=== PATIENT | female | born 1950 | race Caucasian/White ===

== ENCOUNTER 2016-12-02 19:24 | Inpatient (IN) | payer MEDICARE ==
[~2016-12-02] VITALS: Ht 167.6 cm; Wt 43.1 kg
[~2016-12-02 19:24] MED LIST: INSU100I17 SQ; INSU100I27 SQ; LISI2.5T PO; POTASSIUM CHLO10 MEQ PO
[2016-12-02] MEDS ORDERED: ONDANSETRON PF 4 MG/2 ML VIAL. IV ONE (19:45)
[2016-12-02] MEDS ORDERED: IV NORMAL SALINE 500ML BAG 500 ML IV ONE (19:45)
[2016-12-02] MEDS ORDERED: fentaNYL PF VIAL 100 MCG/2 ML VIAL IV PRN (19:45)
[2016-12-02 19:53] LABS: BILIRUBIN,URINE NEGATIVE (NEG); GLUCOSE,URINE 500 mg/dL (NEG); NITRITE,URINE NEGATIVE (NEG); PROTEIN,URINE NEGATIVE (NEG-TRACE); UROBILINOGEN,URINE 0.2 mg/dL (0.2 mg/dL)
[2016-12-02 19:58] LABS: BACTERIA,URINE 0 /HPF (0-FEW); RBC,URINE 0 /HPF (0-2); SQUAMOUS EPITHELIAL CELL,UR OCC /LPF; WBC,URINE OCC /HPF (0-4)
[2016-12-02] MEDS ORDERED: PRAV10TA2 PO (20:13)
[2016-12-02] MEDS ORDERED: CARV3.12 PO (20:13)
[2016-12-02 20:24] LABS: BASO % 0 % (0-3); EOS % 2 % (0-3); HEMATOCRIT 38.3 % (36.0-47.0); HEMOGLOBIN 12.6 g/dL (12.0-15.5); LYMPH # 1.5 x10^3/uL (1.0-4.8); LYMPH % 25 % (24-48); MEAN CORPUSCULAR HEMOGLOBIN 31 pg (25-35); MEAN CORPUSCULAR HGB CONC 33 g/dL (31-37); MEAN CORPUSCULAR VOLUME 93 fL (79-100); MONO % 6 % (0-9); NEUT % 67 % (31-73); PLATELET COUNT 170 x10^3/uL (140-400); RED BLOOD COUNT 4.14 x10^6/uL (3.50-5.40); RED CELL DISTRIBUTION WIDTH 13.2 % (11.5-14.5)
[2016-12-02 20:46] LABS: CALCIUM 7.9 mg/dL (8.5-10.1); CREATININE 0.9 mg/dL (0.6-1.0); GFR 62.3
[2016-12-02 20:52] LABS: ALBUMIN 3.3 g/dL (3.4-5.0); TOTAL BILIRUBIN 0.2 mg/dL (0.2-1.0); TOTAL PROTEIN 6.5 g/dL (6.4-8.2)
[2016-12-02] MEDS ORDERED: MORPHINE SULFATE 2 MG/ML DISP.SYRIN. IV PRN (21:30)
[2016-12-02] MEDS: ONDANSETRON PF 4 MG/2 ML VIAL. IV PRN (21:41)
--- NOTE | 2016-12-02 22:09 | PHYS DOC ---
Past Medical History Past Medical History: Diabetes-Type I, High Cholesterol, Hypotension, Other Additional Past Medical Histor: BLE neuropathy Past Surgical History: Cholecystectomy, Other Additional Past Surgical Histo: L toe removal Alcohol Use: None Drug Use: None Adult General Chief Complaint Chief Complaint: NAUSEA/VOMITING/DIARRHA HPI HPI Patient is a 66 year old female who presents with abdominal pain. The patient states she has 2 day history of lower abdominal pain associated with numerous episodes of bilious vomiting, not tolerating oral intake. Also reports frequent loose stools. Denies fevers/chills, hematochezia/melena, dysuria/ hematuria. She denies previous history of similar symptoms. She actually presented initially to [facility], had CT performed there demonstrating enterocolitis, received IV cipro & flagyl, & they recommended transfer to [facility]. She refused transport because she didn't want to pay ambulance bill, & her family brought her to [place]. She states there was some concern that she could have "pinched off blood vessels in her intestines" requiring intervention by a vascular surgeon. She has history of DM, HTN, cholecystectomy. Review of Systems Review of Systems Constitutional: Denies fever or chills Eyes: Denies change in visual acuity HENT: Denies nasal congestion or sore throat Respiratory: Denies cough or shortness of breath Cardiovascular: Denies chest pain or edema GI: Reports abdominal pain, nausea, vomiting, & diarrhea : Denies dysuria or hematuria Musculoskeletal: Denies back pain or joint pain Integument: Denies rash or skin lesions Neurologic: Denies headache, focal weakness or sensory changes Current Medications Current Medications Current Medications Medications (Trade) Dose Ordered Sig/Sandeep Start Time Stop Time Status Last Admin Dose Admin Fentanyl Citrate (Fentanyl 2ml Vial) 50 mcg PRN Q15MIN PRN 12/02/16 19:45 12/03/16 19:44 12/02/16 21:41 50 MCG Ondansetron HCl (Zofran) 4 mg 1X ONCE 12/02/16 19:45 12/02/16 19:47 DC 12/02/16 20:19 4 MG Sodium Chloride 500 ml @ 0 mls/hr 1X ONCE 12/02/16 19:45 12/02/16 19:47 DC 12/02/16 19:45 1,000 MLS/HR Allergies Allergies Allergies Coded Allergies Type Severity Reaction Last Updated Verified codeine Allergy Severe Anaphylaxis 11/25/14 Yes Penicillins Allergy Unknown 11/25/14 Yes Physical Exam Physical Exam Constitutional: frail, appears ill, non-toxic appearance. HENT: Normocephalic, atraumatic, bilateral external ears normal, oropharynx dry , nose normal. Eyes: conjunctiva normal, no discharge. Neck: supple, no stridor. Cardiovascular: RRR, no murmurs, no edema. Lungs & Thorax: LCTAB, no wheezing, no respiratory distress. Abdomen: soft, no focal tenderness with palpation, no rebound/guarding, no masses or pulsatile masses, nondistended. Skin: Warm, dry, no erythema, no rash. Back: No CVA tenderness. Extremities: No tenderness, no edema. Neurologic: Alert and oriented X 3, no focal deficits noted. Psychologic: Affect normal, judgement normal, mood normal. Current Patient Data Vital Signs Vital Signs Date Time Temp Pulse Resp B/P (MAP) Pulse Ox O2 Delivery O2 Flow Rate FiO2 12/02/16 20:37 102 58 150/66 (94) 97 12/02/16 20:07 Room Air 12/02/16 19:45 98.3 98.3 Lab Values Laboratory Tests Test 12/02/16 19:32 12/02/16 19:51 12/02/16 20:19 Urine Collection Type Unknown Urine Color Yellow Urine Clarity Clear Urine pH 6.0 Urine Specific [place] 1.020 Urine Protein Negative mg/dL (NEG-TRACE) Urine Glucose (UA) 500 mg/dL (NEG) Urine Ketones (Stick) Trace mg/dL (NEG) Urine Blood Negative (NEG) Urine Nitrite Negative (NEG) Urine Bilirubin Negative (NEG) Urine Urobilinogen Dipstick 0.2 mg/dL (0.2 mg/dL) Urine Leukocyte Esterase Negative (NEG) Urine RBC 0 /HPF (0-2) Urine WBC Occ /HPF (0-4) Urine Squamous Epithelial Cells Occ /LPF Urine Bacteria 0 /HPF (0-FEW) Glucose (Fingerstick) 219 mg/dL (70-99) H White Blood Count 6.0 x10^3/uL (4.0-11.0) Red Blood Count 4.14 x10^6/uL (3.50-5.40) Hemoglobin 12.6 g/dL (12.0-15.5) Hematocrit 38.3 % (36.0-47.0) Mean Corpuscular Volume 93 fL (79-100) Mean Corpuscular Hemoglobin 31 pg (25-35) Mean Corpuscular Hemoglobin Concent 33 g/dL (31-37) Red Cell Distribution Width 13.2 % (11.5-14.5) Platelet Count 170 x10^3/uL (140-400) Neutrophils (%) (Auto) 67 % (31-73) Lymphocytes (%) (Auto) 25 % (24-48) Monocytes (%) (Auto) 6 % (0-9) Eosinophils (%) (Auto) 2 % (0-3) Basophils (%) (Auto) 0 % (0-3) Neutrophils # (Auto) 4.0 x10^3uL (1.8-7.7) Lymphocytes # (Auto) 1.5 x10^3/uL (1.0-4.8) Monocytes # (Auto) 0.4 x10^3/uL (0.0-1.1) Eosinophils # (Auto) 0.1 x10^3/uL (0.0-0.7) Basophils # (Auto) 0.0 x10^3/uL (0.0-0.2) Sodium Level 138 mmol/L (136-145) Potassium Level 4.0 mmol/L (3.5-5.1) Chloride Level 106 mmol/L (98-107) Carbon Dioxide Level 27 mmol/L (21-32) Anion Gap 5 (6-14) L Blood Urea Nitrogen 20 mg/dL (7-20) Creatinine 0.9 mg/dL (0.6-1.0) Estimated GFR (Cockcroft-Gault) 62.3 BUN/Creatinine Ratio 22 (6-20) H Glucose Level 234 mg/dL (70-99) H Lactic Acid Level 0.9 mmol/L (0.4-2.0) Calcium Level 7.9 mg/dL (8.5-10.1) L Total Bilirubin 0.2 mg/dL (0.2-1.0) Aspartate Amino Transferase (AST) 16 U/L (15-37) Alanine Aminotransferase (ALT) 20 U/L (14-59) Alkaline Phosphatase 105 U/L (46-116) Troponin I Quantitative < 0.017 ng/mL (0.000-0.055) Total Protein 6.5 g/dL (6.4-8.2) Albumin 3.3 g/dL (3.4-5.0) L Albumin/Globulin Ratio 1.0 (1.0-1.7) Lipase 79 U/L (73-393) Laboratory Tests 12/02/16 20:19 Laboratory Tests 12/02/16 20:19 EKG EKG Interpreted by me: Sinus tachycardia rate 104, no acute ST or T wave changes, normal intervals, no ectopy. [] Radiology/Procedures Radiology/Procedures From medical record sent from [facility]: CT of the abdomen and pelvis with contrast: Interpreted by Dr. Rhoades: Visualized lung bases are clear. Calcified granulomas in the liver and spleen. Right renal cyst. Liver, spleen, pancreas, adrenal glands, kidneys normal. Urinary bladder normal. Suggestion of diffuse mural thickening involving the entire colon, though this could be in part related to under distention. In addition, there is prominent enhancement and mural thickening involving several loops of small bowel in the left abdomen. Findings are consistent with nonspecific enterocolitis. There is no bowel obstruction. No definite evidence for acute appendicitis. Atherosclerotic calcifications are seen. No lymphadenopathy her ascites is seen. Degenerative changes are seen in the spine. [] Course & Med Decision Making Course & Med Decision Making Pertinent Labs and Imaging studies reviewed. (See chart for details) The patient presents with abdominal pain with CT performed at outside hospital showing enterocolitis, having already received IV antibiotics just prior to arrival. Gave IV fluids, zofran, pain medication. Labs as above. I reviewed CT report, no description of findings suggesting definite mesenteric ischemia or other vascular pathology. She did not feel well enough to go home & was agreeable with admission. Discussed with Dr. Lai who agrees to admit to inpatient status. GI consult to Dr. Copeland. The patient is admitted in stable condition. [] Dragon Disclaimer Dragon Disclaimer This electronic medical record was generated, in whole or in part, using a voice recognition dictation system. Departure Departure Impression: Primary Impression: Abdominal pain Additional Impressions: Nausea vomiting and diarrhea Hyperglycemia Disposition: ADMITTED INPATIENT Admitting Physician: Claudia Lai Condition: STABLE Referrals: ADRIANE WILLIAM MD (PCP) Problem Qualifiers NATE MOBLEY MD Dec 02, 2016 22:09
[2016-12-02 22:20] VITALS: BP 129/64
--- NOTE | 2016-12-02 22:37 | ACF ---
Admission Forms Criteria ABDOMINAL PAIN Clinical Indications for Admission to Inpatient Care (Place 'X' for any and all applicable criteria): Admission is indicated for ANY ONE of the following(1)(2)(3)(4)(5): [ ]I. Inpatient admission required rather than observation care (Also use Abdominal Pain: Observation Care, as appropriate) because of ANY ONE of the following: [ ]a) Severe pain requiring acute inpatient management [ ]b) Identification of etiology/finding that requires inpatient care (eg, aortic dissection, free air) [ ]c) Absent bowel sounds with complete ileus(6) [ ]d) Suspected toxic megacolon [ ]e) Severe electrolyte abnormalities requiring inpatient care [ ]f) High fever or infection requiring inpatient admission as indicated by ANY ONE of following(7)(8): [ ] i) Appropriate outpatient or observational care antimicrobial treatment unavailable, not effective, or not feasible [ ] ii) Documented bacteremia [ ] iii) Temperature > 104.9 degrees F (oral) [ ] iv) T >103.1 F (oral) or < 96.8 F(rectal) that does not respond to all emergency treatment measures [ ]g) Signs of intestinal obstruction [B] [ ]h) Hemodynamic instability [ ]i) IV fluid to replace significant ongoing losses (greater than 3 L/m2 per day) (12)(13) [ ]j) Percutaneous or open drainage (eg, abscess, biliary tract ) procedures [ ]k) Parenteral nutrition regimen that must be implemented on inpatient basis [ ]l) Other condition,treatment or monitoring requiring inpatient admission. [ ]II. Peritoneal signs present [ ]III. Surgery needed that cannot be performed on an ambulatory basis. [ ]IV. Evaluation requires patient to not eat or drink for extended period ( eg, more than 24 hours). [ ]V. Contraindications and/or Inappropriate clinical situations for Observational Care in patients with abdominal pain, when ANY ONE of the following is required: [ ]a) Thorough evaluation is required to prevent catastrophic events due to delays in diagnosing (e.g.Mesenteric ischemia) 1,3 [ ]b) Patient with severe pathology or with chronic symptoms unlikely to improve in the ED stay (3) [X]. General contraindications and/or Inappropriate clinical situations for Observational Care in patients with abdominal pain, when ANY ONE of the following is required: [X]a) Prediction of prolongation of LOS based on ANY ONE of the following may be considered as a contraindication for observational care 2, 3, 4, 5, 6, 7, 8, 9, 10, 11 [X]i) Age > 65 yrs. [ ]ii) Patient arriving by ambulance [ ]iii) Patient with high acuity [ ]iv) Patient requiring vital sign monitoring [ ]v) Patient on IV medication [ ]b) Systolic blood pressures 180mmHg 3,12 [ ]c) Patient with altered mental status including delirium and other alteration of consciousness, (3) [ ]d) Patient whose discharge disposition will be to a correction home or rehabilitation home should not be managed in Emergency Department Observation Unit. CMS rule requires 3 days hospital stay before such placement.3,13 [ ]e) Patient with failure to thrive due to broad array of etiologies 3,16,17 [ ]f) Inability to ambulate 3,14 Extended stay beyond goal length of stay may be needed for(2)(3): [ ]a) Persistent abdominal pain with suspected intra-abdominal process [ ]b) Diagnosed condition requiring continued stay (e.g., pancreatitis, complicated diverticulitis) [ ]c) Surgery (e.g., colectomy) The original [facility] content created by [employer] has been revised. The portions of the content which have been revised are identified through the use of italic text or in bold, and [facility] has neither reviewed nor approved the modified material.All other unmodified content is copyright [facility]. Please see references footnoted in the original [facility] edition 2016 Admission Criteria Met?: Yes CHRISTELLE QUAN Dec 02, 2016 22:37
[2016-12-02] MEDS: IV NORMAL SALINE 1000ML BAG 1,000 ML IV SCH (23:04)
[2016-12-02] MEDS ORDERED: INSU100I13 SQ (23:11)
[2016-12-03] VITALS (7 sets, daily range): BP systolic 80–108; BP diastolic 34–49
[2016-12-03 04:04] LABS: BASO % 0 % (0-3); EOS % 1 % (0-3); HEMATOCRIT 34.9 % (36.0-47.0); HEMOGLOBIN 11.6 g/dL (12.0-15.5); LYMPH # 2.1 x10^3/uL (1.0-4.8); LYMPH % 35 % (24-48); MEAN CORPUSCULAR HEMOGLOBIN 31 pg (25-35); MEAN CORPUSCULAR HGB CONC 33 g/dL (31-37); MEAN CORPUSCULAR VOLUME 93 fL (79-100); MONO % 6 % (0-9); NEUT % 58 % (31-73); PLATELET COUNT 156 x10^3/uL (140-400); RED BLOOD COUNT 3.74 x10^6/uL (3.50-5.40); RED CELL DISTRIBUTION WIDTH 13.2 % (11.5-14.5)
[2016-12-03 04:44] LABS: CALCIUM 7.8 mg/dL (8.5-10.1); CREATININE 0.8 mg/dL (0.6-1.0); GFR 71.3; POTASSIUM 3.7 mmol/L (3.5-5.1)
--- NOTE | 2016-12-03 06:32 | EKG ---
[facility] [address] [place] [id number] Test Date: 2016-12-02 Test Time: 19:50:37 Pat Name: MARY VELÁZQUEZ Department: Room: [facility] Gender: F Full Stack Python Developer: : 1950 Requested By: NATE MOBLEY Order Number: [id number] Reading MD: Marysol Serrano Measurements Intervals [place] Rate: 104 P: 64 [place]: 156 QRS: 90 QRSD: 90 T: 66 QT: 348 QTc: 464 Interpretive Statements SINUS TACHYCARDIA LEFT ATRIAL ABNORMALITY QRS(T) CONTOUR ABNORMALITY CANNOT RULE OUT ANTEROSEPTAL MYOCARDIAL DAMAGE Electronically Signed On 12-04-2016 14:12:15 CDT by Marysol Serrano
[2016-12-03] MEDS ORDERED: DOCUSATE SODIUM 100 MG CAPSULE. PO PRN (08:45)
[2016-12-03] MEDS ORDERED: ACETAMINOPHEN 325 MG TABLET. PO PRN (08:45)
[2016-12-03] MEDS ORDERED: ONDANSETRON PF 4 MG/2 ML VIAL. IV PRN (08:45)
[2016-12-03] MEDS ORDERED: traMADol 50 MG TABLET PO PRN (08:45)
[2016-12-03] MEDS ORDERED: hydrALAZINE 20 MG/ML VIAL. IVP PRN (08:45)
[2016-12-03] MEDS ORDERED: MORPHINE SULFATE 2 MG/ML DISP.SYRIN. IV PRN (08:45)
[2016-12-03] MEDS ORDERED: DEXTROSE 50% 25 GM / 50ML DISP.SYRIN. IV PRN (08:45)
[2016-12-03] MEDS: IV NORMAL SALINE 1000ML BAG 1,000 ML IV SCH ×2 (08:47→17:24)
[2016-12-03] MEDS: ONDANSETRON PF 4 MG/2 ML VIAL. IV PRN (08:58)
[2016-12-03] MEDS: CARVEDILOL 3.125 MG TABLET. PO SCH ×2 (09:00→17:00)
[2016-12-03] MEDS ORDERED: fentaNYL PF VIAL 100 MCG/2 ML VIAL IV PRN (09:00)
--- NOTE | 2016-12-03 09:34 | PDOC2 ---
GI CONSULT Reason For Consult: Abd pain, colitis HPI: HPI: 66 y/o female w/ type 1 diabetes, reports h/o dizziness and some GI symptoms ( diarrhea, n/v) when glucose is too high or too low. Recently has been running high, has felt dizzy, fatigued, and "too weak to walk." Stooling 2-3 times daily, loose or watery, non-bloody, not during the night. Last week noted a black stool but takes "a lot" of Pepto-Bismol. Had some lower abd discomfort yesterday, now resolved. Dizziness ("room spinning") w/ standing causes nausea , unclear how often vomiting, but mostly in the morning. Says all GI symptoms not out of the ordinary. Currently "starving," wants eggs, has been NPO. Occasional reflux, particularly after eating tomatoes, untreated. Difficulty gaining weight "for months" despite good appetite. EGD long ago, no significant findings recalls. H/o two colonoscopies w/ Dr. Kam, reportedly normal. Unclear if has seen neurology or had head imaging for dizziness in the past. Was seen at [place] [facility], she says for fatigue, CT showed diffuse mural thickening int he entire colon (?in part due to incomplete distention) w/ prominent enhancement and mural thickening of small bowel loops in left abdomen. Labs as below, C Diff ordered/uncollected. 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 FH: Family History: No pertinent hx (denies GI cancers) Social History: Smoke: Quit ALCOHOL: none Drugs: None ROS: GEN: Denies fevers, chills, sweats HEENT: Denies blurred vision, sore throat CV: Denies chest pain RESP: Denies shortness of air, cough GI: Per HPI : Denies hematuria, dysuria ENDO: +difficulty gaining weight NEURO: +dizziness MSK: +weakness, fatigue SKIN: Denies jaundice, pruritus Vitals: Vitals: Vital Signs Date Time Temp Pulse Resp B/P (MAP) Pulse Ox O2 Delivery O2 Flow Rate FiO2 12/03/16 07:00 97.7 93 19 103/49 (67) 97 Room Air 97.7 Labs: Labs: Laboratory Tests Test 12/02/16 19:32 12/02/16 19:51 12/02/16 20:19 12/03/16 04:00 Urine Collection Type Unknown Urine Color Yellow Urine Clarity Clear Urine pH 6.0 Urine Specific [place] 1.020 Urine Protein Negative mg/dL (NEG-TRACE) Urine Glucose (UA) 500 mg/dL (NEG) Urine Ketones (Stick) Trace mg/dL (NEG) Urine Blood Negative (NEG) Urine Nitrite Negative (NEG) Urine Bilirubin Negative (NEG) Urine Urobilinogen Dipstick 0.2 mg/dL (0.2 mg/dL) Urine Leukocyte Esterase Negative (NEG) Urine RBC 0 /HPF (0-2) Urine WBC Occ /HPF (0-4) Urine Squamous Epithelial Cells Occ /LPF Urine Bacteria 0 /HPF (0-FEW) Glucose (Fingerstick) 219 mg/dL (70-99) White Blood Count 6.0 x10^3/uL (4.0-11.0) 6.0 x10^3/uL (4.0-11.0) Red Blood Count 4.14 x10^6/uL (3.50-5.40) 3.74 x10^6/uL (3.50-5.40) Hemoglobin 12.6 g/dL (12.0-15.5) 11.6 g/dL (12.0-15.5) Hematocrit 38.3 % (36.0-47.0) 34.9 % (36.0-47.0) Mean Corpuscular Volume 93 fL (79-100) 93 fL (79-100) Mean Corpuscular Hemoglobin 31 pg (25-35) 31 pg (25-35) Mean Corpuscular Hemoglobin Concent 33 g/dL (31-37) 33 g/dL (31-37) Red Cell Distribution Width 13.2 % (11.5-14.5) 13.2 % (11.5-14.5) Platelet Count 170 x10^3/uL (140-400) 156 x10^3/uL (140-400) Neutrophils (%) (Auto) 67 % (31-73) 58 % (31-73) Lymphocytes (%) (Auto) 25 % (24-48) 35 % (24-48) Monocytes (%) (Auto) 6 % (0-9) 6 % (0-9) Eosinophils (%) (Auto) 2 % (0-3) 1 % (0-3) Basophils (%) (Auto) 0 % (0-3) 0 % (0-3) Neutrophils # (Auto) 4.0 x10^3uL (1.8-7.7) 3.5 x10^3uL (1.8-7.7) Lymphocytes # (Auto) 1.5 x10^3/uL (1.0-4.8) 2.1 x10^3/uL (1.0-4.8) Monocytes # (Auto) 0.4 x10^3/uL (0.0-1.1) 0.3 x10^3/uL (0.0-1.1) Eosinophils # (Auto) 0.1 x10^3/uL (0.0-0.7) 0.1 x10^3/uL (0.0-0.7) Basophils # (Auto) 0.0 x10^3/uL (0.0-0.2) 0.0 x10^3/uL (0.0-0.2) Sodium Level 138 mmol/L (136-145) 140 mmol/L (136-145) Potassium Level 4.0 mmol/L (3.5-5.1) 3.7 mmol/L (3.5-5.1) Chloride Level 106 mmol/L (98-107) 106 mmol/L (98-107) Carbon Dioxide Level 27 mmol/L (21-32) 22 mmol/L (21-32) Anion Gap 5 (6-14) 12 (6-14) Blood Urea Nitrogen 20 mg/dL (7-20) 14 mg/dL (7-20) Creatinine 0.9 mg/dL (0.6-1.0) 0.8 mg/dL (0.6-1.0) Estimated GFR (Cockcroft-Gault) 62.3 71.3 BUN/Creatinine Ratio 22 (6-20) Glucose Level 234 mg/dL (70-99) 232 mg/dL (70-99) Lactic Acid Level 0.9 mmol/L (0.4-2.0) Calcium Level 7.9 mg/dL (8.5-10.1) 7.8 mg/dL (8.5-10.1) Total Bilirubin 0.2 mg/dL (0.2-1.0) Aspartate Amino Transf (AST/SGOT) 16 U/L (15-37) Alanine Aminotransferase (ALT/SGPT) 20 U/L (14-59) Alkaline Phosphatase 105 U/L (46-116) Troponin I Quantitative < 0.017 ng/mL (0.000-0.055) Total Protein 6.5 g/dL (6.4-8.2) Albumin 3.3 g/dL (3.4-5.0) Albumin/Globulin Ratio 1.0 (1.0-1.7) Lipase 79 U/L (73-393) Test 12/03/16 07:52 Glucose (Fingerstick) 252 mg/dL (70-99) Allergies: Coded Allergies: codeine (Verified Allergy, Severe, Anaphylaxis, 11/25/14) Penicillins (Verified Allergy, Unknown, 11/25/14) Medications: Current Medications Medications (Trade) Dose Ordered Sig/Sandeep Route PRN Reason Start Time Stop Time Status Last Admin Dose Admin Sodium Chloride 500 ml @ 0 mls/hr 1X ONCE IV 12/02/16 19:45 12/02/16 19:47 DC 12/02/16 19:45 Ondansetron HCl (Zofran) 4 mg 1X ONCE IV 12/02/16 19:45 12/02/16 19:47 DC 12/02/16 20:19 Fentanyl Citrate (Fentanyl 2ml Vial) 50 mcg PRN Q15MIN PRN IV PAIN GREATER THAN 3/10 12/02/16 19:45 12/03/16 19:44 12/02/16 21:41 Ondansetron HCl (Zofran) 4 mg PRN Q8HRS PRN IV NAUSEA/VOMITING 12/02/16 21:30 12/03/16 21:29 12/03/16 08:58 Sodium Chloride 1,000 ml @ 100 mls/hr Q10H IV 12/02/16 21:24 12/03/16 21:23 12/03/16 08:47 Imaging: Imaging: Reviewed CT report from [facility]. PE: GEN: NAD, thin HEENT: Atraumatic, PERRL LUNGS: CTAB HEART: RRR ABD: NABS, S/ND/NT EXTREMITY: No edema SKIN: No rashes, no jaundice NEURO/PSYCH: A & O 3 A/P: A/P: DM, dizziness, fatigue Abnormal CT -diffuse mural thickening in the entire colon (?in part due to incomplete distention) w/ prominent enhancement and mural thickening of small bowel loops in left abdomen Low BMI, difficulty gaining weight Loose stools, vomiting -not unusual when glucose low or high GERD -occasional symptoms, untreated, EGD long ago CRC screen -two previous colonoscopies, reportedly normal -- GI symptoms don't seem new, unclear significance of CT findings. Try diet, note ADA ordered. Will add PPI, review w/ Dr. Copeland. MARY ZAVALA Dec 03, 2016 09:34
[2016-12-03] MEDS: PANTOPRAZOLE 40 MG TABLET.DR. PO SCH (10:21)
[2016-12-03] MEDS ORDERED: INSULIN ASPART 300 UNITS/3 ML INSULN.PEN SQ STA (11:11)
[2016-12-03] MEDS: INSULIN ASPART 300 UNITS/3 ML INSULN.PEN SQ SCH ×4 (11:30→17:00)
--- NOTE | 2016-12-03 11:43 | PDOC1 ---
History and Physical Date of Admission Date of Admission 12/02/16 Identification/Chief Complaint Chief Complaint N/V, abd pain Problems: Source Source: Chart review, Patient History of Present Illness History of Present Illness HPI Patient is a 66 year old female who presents with abdominal pain, N/V, diarrhea , dizzy x2-3ds. pt said she has this problem 2-3 times per year, actually she was here 2014 for same reason. PT Said usually has n/v, abd pain, when glucose is too high or too low, but she thinks recent her DM is well controlled. She mainly concerns about light headed , no vertigo. The vomiting is non bloody or bilious, abd pain located at epigastric area, moderate, no radiation, bm was loose/watery. denes fever, chills, cough, sob or chest pain. as per ERP, She actually presented initially to [facility], had CT performed there demonstrating enterocolitis, received IV cipro & flagyl, & they recommended transfer to [facility]. She refused transport because she didn't want to pay ambulance bill, & her family brought her to [place]. she dose have polydypsia. admits hba1c was high. Past Medical History Cardiovascular: HTN Endocrine: Diabetes Past Surgical History Past Surgical History: Cholecystectomy Family History Family History: Hypertension Social History Smoke: No ALCOHOL: none Drugs: None Current Problem List Problem List Problems Medical Problems: (1) Hyperglycemia Status: Acute (2) Nausea vomiting and diarrhea Status: Acute Current Medications Current Medications Current Medications Medications (Trade) Dose Ordered Sig/Sandeep Start Time Stop Time Status Last Admin Dose Admin Acetaminophen (Tylenol) 650 mg PRN Q6HRS PRN 12/03/16 08:45 Atorvastatin Calcium (Lipitor) 5 mg QHS 12/03/16 21:00 Carvedilol (Coreg) 3.125 mg BIDWMEALS 12/03/16 09:00 Dextrose (Dextrose 50%-Water Syringe) 12.5 gm PRN Q15MIN PRN 12/03/16 08:45 Docusate Sodium (Colace) 100 mg PRN DAILY PRN 12/03/16 08:45 Fentanyl Citrate (Fentanyl 2ml Vial) 25 mcg PRN Q2HR PRN 12/03/16 09:00 Hydralazine HCl (Apresoline) 10 mg PRN Q4HRS PRN 12/03/16 08:45 Insulin Aspart (NovoLOG) 18 units 1X STAT 12/03/16 11:11 12/03/16 11:17 DC 12/03/16 11:20 18 UNITS Insulin Detemir (Levemir) 18 units QHS 12/03/16 21:00 Morphine Sulfate 2 mg PRN Q2HR PRN 12/03/16 08:45 UNV Ondansetron HCl (Zofran) 4 mg PRN Q6HRS PRN 12/03/16 08:45 Pantoprazole Sodium (Protonix) 40 mg DAILYAC 12/03/16 10:00 12/03/16 10:21 40 MG Sodium Chloride 1,000 ml @ 100 mls/hr Q10H 12/02/16 21:24 12/03/16 21:23 12/03/16 08:47 100 MLS/HR Tramadol HCl (Ultram) 50 mg PRN Q6HRS PRN 12/03/16 08:45 Allergies Allergies Allergies Coded Allergies Type Severity Reaction Last Updated Verified codeine Allergy Severe Anaphylaxis 11/25/14 Yes Penicillins Allergy Unknown 11/25/14 Yes ROS Review of System CONSTITUTIONAL: No fever or chills EYES: No recent changes SKIN: No rash or itching CARDIOVASCULAR: No chest pain, syncope, palpitations, or edema RESPIRATORY: No SOB or cough GASTROINTESTINAL: No nausea, vomiting or abdominal pain NEUROLOGICAL: No headaches or weakness ENDOCRINE: No cold or heat intolerance GENITOURINARY: No urgency or frequency of urination MUSCULOSKELETAL: No back pain or joint pain LYMPHATICS: No enlarged lymph nodes PSYCHIATRIC: No anxiety or depression Physical Exam Physical Exam GEN.: No apparent distress. Alert and oriented. HEENT: Head is normocephalic, atraumatic NECK: Supple. LUNGS: Clear to auscultation. HEART: RRR, S1, S2 present. Peripheral pulses intact ABDOMEN: Soft, Positive bowel sounds. epigastric abd tenderness EXTREMITIES: Without any cyanosis. NEUROLOGIC: Normal speech, normal tone PSYCHIATRIC: Normal affect, normal mood. SKIN: No ulcerations Vitals Vitals Vital Signs Date Time Temp Pulse Resp B/P (MAP) Pulse Ox O2 Delivery O2 Flow Rate FiO2 12/03/16 11:00 98.1 104 19 96/34 (54) 97 Room Air 98.1 Labs Labs Laboratory Tests Test 12/02/16 19:32 12/02/16 19:51 12/02/16 20:19 12/03/16 04:00 Urine Collection Type Unknown Urine Color Yellow Urine Clarity Clear Urine pH 6.0 Urine Specific Mooers 1.020 Urine Protein Negative mg/dL (NEG-TRACE) Urine Glucose (UA) 500 mg/dL (NEG) Urine Ketones (Stick) Trace mg/dL (NEG) Urine Blood Negative (NEG) Urine Nitrite Negative (NEG) Urine Bilirubin Negative (NEG) Urine Urobilinogen Dipstick 0.2 mg/dL (0.2 mg/dL) Urine Leukocyte Esterase Negative (NEG) Urine RBC 0 /HPF (0-2) Urine WBC Occ /HPF (0-4) Urine Squamous Epithelial Cells Occ /LPF Urine Bacteria 0 /HPF (0-FEW) Glucose (Fingerstick) 219 mg/dL (70-99) White Blood Count 6.0 x10^3/uL (4.0-11.0) 6.0 x10^3/uL (4.0-11.0) Red Blood Count 4.14 x10^6/uL (3.50-5.40) 3.74 x10^6/uL (3.50-5.40) Hemoglobin 12.6 g/dL (12.0-15.5) 11.6 g/dL (12.0-15.5) Hematocrit 38.3 % (36.0-47.0) 34.9 % (36.0-47.0) Mean Corpuscular Volume 93 fL (79-100) 93 fL (79-100) Mean Corpuscular Hemoglobin 31 pg (25-35) 31 pg (25-35) Mean Corpuscular Hemoglobin Concent 33 g/dL (31-37) 33 g/dL (31-37) Red Cell Distribution Width 13.2 % (11.5-14.5) 13.2 % (11.5-14.5) Platelet Count 170 x10^3/uL (140-400) 156 x10^3/uL (140-400) Neutrophils (%) (Auto) 67 % (31-73) 58 % (31-73) Lymphocytes (%) (Auto) 25 % (24-48) 35 % (24-48) Monocytes (%) (Auto) 6 % (0-9) 6 % (0-9) Eosinophils (%) (Auto) 2 % (0-3) 1 % (0-3) Basophils (%) (Auto) 0 % (0-3) 0 % (0-3) Neutrophils # (Auto) 4.0 x10^3uL (1.8-7.7) 3.5 x10^3uL (1.8-7.7) Lymphocytes # (Auto) 1.5 x10^3/uL (1.0-4.8) 2.1 x10^3/uL (1.0-4.8) Monocytes # (Auto) 0.4 x10^3/uL (0.0-1.1) 0.3 x10^3/uL (0.0-1.1) Eosinophils # (Auto) 0.1 x10^3/uL (0.0-0.7) 0.1 x10^3/uL (0.0-0.7) Basophils # (Auto) 0.0 x10^3/uL (0.0-0.2) 0.0 x10^3/uL (0.0-0.2) Sodium Level 138 mmol/L (136-145) 140 mmol/L (136-145) Potassium Level 4.0 mmol/L (3.5-5.1) 3.7 mmol/L (3.5-5.1) Chloride Level 106 mmol/L (98-107) 106 mmol/L (98-107) Carbon Dioxide Level 27 mmol/L (21-32) 22 mmol/L (21-32) Anion Gap 5 (6-14) 12 (6-14) Blood Urea Nitrogen 20 mg/dL (7-20) 14 mg/dL (7-20) Creatinine 0.9 mg/dL (0.6-1.0) 0.8 mg/dL (0.6-1.0) Estimated GFR (Cockcroft-Gault) 62.3 71.3 BUN/Creatinine Ratio 22 (6-20) Glucose Level 234 mg/dL (70-99) 232 mg/dL (70-99) Lactic Acid Level 0.9 mmol/L (0.4-2.0) Calcium Level 7.9 mg/dL (8.5-10.1) 7.8 mg/dL (8.5-10.1) Total Bilirubin 0.2 mg/dL (0.2-1.0) Aspartate Amino Transf (AST/SGOT) 16 U/L (15-37) Alanine Aminotransferase (ALT/SGPT) 20 U/L (14-59) Alkaline Phosphatase 105 U/L (46-116) Troponin I Quantitative < 0.017 ng/mL (0.000-0.055) Total Protein 6.5 g/dL (6.4-8.2) Albumin 3.3 g/dL (3.4-5.0) Albumin/Globulin Ratio 1.0 (1.0-1.7) Lipase 79 U/L (73-393) Test 12/03/16 07:52 12/03/16 10:14 12/03/16 10:58 Glucose (Fingerstick) 252 mg/dL (70-99) 417 mg/dL (70-99) D-Dimer (Lucia) 0.61 ug/mlFEU (0.00-0.50) Laboratory Tests Test 12/02/16 19:32 12/02/16 19:51 12/02/16 20:19 12/03/16 04:00 Urine Collection Type Unknown Urine Color Yellow Urine Clarity Clear Urine pH 6.0 Urine Specific Mooers 1.020 Urine Protein Negative mg/dL (NEG-TRACE) Urine Glucose (UA) 500 mg/dL (NEG) Urine Ketones (Stick) Trace mg/dL (NEG) Urine Blood Negative (NEG) Urine Nitrite Negative (NEG) Urine Bilirubin Negative (NEG) Urine Urobilinogen Dipstick 0.2 mg/dL (0.2 mg/dL) Urine Leukocyte Esterase Negative (NEG) Urine RBC 0 /HPF (0-2) Urine WBC Occ /HPF (0-4) Urine Squamous Epithelial Cells Occ /LPF Urine Bacteria 0 /HPF (0-FEW) Glucose (Fingerstick) 219 mg/dL (70-99) White Blood Count 6.0 x10^3/uL (4.0-11.0) 6.0 x10^3/uL (4.0-11.0) Red Blood Count 4.14 x10^6/uL (3.50-5.40) 3.74 x10^6/uL (3.50-5.40) Hemoglobin 12.6 g/dL (12.0-15.5) 11.6 g/dL (12.0-15.5) Hematocrit 38.3 % (36.0-47.0) 34.9 % (36.0-47.0) Mean Corpuscular Volume 93 fL (79-100) 93 fL (79-100) Mean Corpuscular Hemoglobin 31 pg (25-35) 31 pg (25-35) Mean Corpuscular Hemoglobin Concent 33 g/dL (31-37) 33 g/dL (31-37) Red Cell Distribution Width 13.2 % (11.5-14.5) 13.2 % (11.5-14.5) Platelet Count 170 x10^3/uL (140-400) 156 x10^3/uL (140-400) Neutrophils (%) (Auto) 67 % (31-73) 58 % (31-73) Lymphocytes (%) (Auto) 25 % (24-48) 35 % (24-48) Monocytes (%) (Auto) 6 % (0-9) 6 % (0-9) Eosinophils (%) (Auto) 2 % (0-3) 1 % (0-3) Basophils (%) (Auto) 0 % (0-3) 0 % (0-3) Neutrophils # (Auto) 4.0 x10^3uL (1.8-7.7) 3.5 x10^3uL (1.8-7.7) Lymphocytes # (Auto) 1.5 x10^3/uL (1.0-4.8) 2.1 x10^3/uL (1.0-4.8) Monocytes # (Auto) 0.4 x10^3/uL (0.0-1.1) 0.3 x10^3/uL (0.0-1.1) Eosinophils # (Auto) 0.1 x10^3/uL (0.0-0.7) 0.1 x10^3/uL (0.0-0.7) Basophils # (Auto) 0.0 x10^3/uL (0.0-0.2) 0.0 x10^3/uL (0.0-0.2) Sodium Level 138 mmol/L (136-145) 140 mmol/L (136-145) Potassium Level 4.0 mmol/L (3.5-5.1) 3.7 mmol/L (3.5-5.1) Chloride Level 106 mmol/L (98-107) 106 mmol/L (98-107) Carbon Dioxide Level 27 mmol/L (21-32) 22 mmol/L (21-32) Anion Gap 5 (6-14) 12 (6-14) Blood Urea Nitrogen 20 mg/dL (7-20) 14 mg/dL (7-20) Creatinine 0.9 mg/dL (0.6-1.0) 0.8 mg/dL (0.6-1.0) Estimated GFR (Cockcroft-Gault) 62.3 71.3 BUN/Creatinine Ratio 22 (6-20) Glucose Level 234 mg/dL (70-99) 232 mg/dL (70-99) Lactic Acid Level 0.9 mmol/L (0.4-2.0) Calcium Level 7.9 mg/dL (8.5-10.1) 7.8 mg/dL (8.5-10.1) Total Bilirubin 0.2 mg/dL (0.2-1.0) Aspartate Amino Transf (AST/SGOT) 16 U/L (15-37) Alanine Aminotransferase (ALT/SGPT) 20 U/L (14-59) Alkaline Phosphatase 105 U/L (46-116) Troponin I Quantitative < 0.017 ng/mL (0.000-0.055) Total Protein 6.5 g/dL (6.4-8.2) Albumin 3.3 g/dL (3.4-5.0) Albumin/Globulin Ratio 1.0 (1.0-1.7) Lipase 79 U/L (73-393) Test 12/03/16 07:52 12/03/16 10:14 12/03/16 10:58 Glucose (Fingerstick) 252 mg/dL (70-99) 417 mg/dL (70-99) D-Dimer (Lucia) 0.61 ug/mlFEU (0.00-0.50) VTE Prophylaxis Ordered VTE Prophylaxis Devices: Yes VTE Pharmacological Prophylaxi: Yes Assessment/Plan Assessment/Plan abd pain, N/V, diarrhea, 2/2 gastroparesis vs. gastroenteritis lightheaded uncontrolled dm1 htn hld plan: fu with gi ada diet cont home meds, ssi check hba1c told her to take small amount of food each time ivf pain control gi, dvt ppx check orthostatic BP ADBEAYO RUIZ MD Dec 03, 2016 11:43
[2016-12-03] MEDS ORDERED: METOCLOPRAMIDE HCL 10 MG/2 ML VIAL. IV PRN (11:45)
[2016-12-03] MEDS ORDERED: IV NORMAL SALINE 1000ML BAG 1,000 ML IV ONE (12:00)
[2016-12-03] MEDS ORDERED: ENOXAPARIN 30 MG/0.3 ML SYRINGE. SQ SCH (16:00)
[2016-12-03] MEDS ORDERED: INSULIN REGULAR 100 UNIT/ML 10ML VIAL. IV ONE (16:15)
[2016-12-03] MEDS ORDERED: INSULIN ASPART 300 UNITS/3 ML INSULN.PEN SQ ONE ×2 (17:15→18:15)
[2016-12-03] MEDS ORDERED: INSULIN DETEMIR 300 UNITS/3 ML INSULN.PEN. SQ SCH (21:00)
[2016-12-03] MEDS ORDERED: ATORVASTATIN CALCIUM 10 MG TABLET. PO SCH (21:00)
[2016-12-04 03:03] VITALS: BP 115/55
[2016-12-04 07:00] VITALS: BP 121/62
[2016-12-04 07:02] LABS: BASO % 0 % (0-3); EOS % 0 % (0-3); HEMATOCRIT 38.4 % (36.0-47.0); HEMOGLOBIN 12.5 g/dL (12.0-15.5); LYMPH # 1.6 x10^3/uL (1.0-4.8); LYMPH % 19 % (24-48); MEAN CORPUSCULAR HEMOGLOBIN 31 pg (25-35); MEAN CORPUSCULAR HGB CONC 33 g/dL (31-37); MEAN CORPUSCULAR VOLUME 94 fL (79-100); MONO % 7 % (0-9); NEUT % 73 % (31-73); PLATELET COUNT 199 x10^3/uL (140-400); RED CELL DISTRIBUTION WIDTH 13.2 % (11.5-14.5); WHITE BLOOD COUNT 8.1 x10^3/uL (4.0-11.0)
[2016-12-04 07:17] LABS: CALCIUM 8.2 mg/dL (8.5-10.1); CREATININE 0.6 mg/dL (0.6-1.0); GFR 99.4; POTASSIUM 3.9 mmol/L (3.5-5.1)
[2016-12-04] MEDS: INSULIN ASPART 300 UNITS/3 ML INSULN.PEN SQ SCH ×3 (07:30→11:49)
[2016-12-04] MEDS: PANTOPRAZOLE 40 MG TABLET.DR. PO SCH (09:00)
[2016-12-04] MEDS: CARVEDILOL 3.125 MG TABLET. PO SCH (09:01)
[2016-12-04 11:00] VITALS: BP 112/62
[2016-12-04] MEDS ORDERED: INSULIN ASPART 300 UNITS/3 ML INSULN.PEN SQ SCH (11:30)
[2016-12-04] MEDS ORDERED: IV NORMAL SALINE 1000ML BAG 1,000 ML IV ONE (11:30)
--- NOTE | 2016-12-04 13:06 | PDOC3 ---
Discharge Summary [facility] Date of Admission: Jan 01, 2017 Discharge Date: Dec 04, 2016 Admitting Diagnosis abd pain, N/V, diarrhea, 2/2 gastroparesis vs. gastroenteritis lightheaded with orthastatic hypotension uncontrolled dm1 htn hld Problems: Final Diagnosis CONSULTS GI Brief Hospital Course Patient is a 66 year old female who presents with abdominal pain, N/V, diarrhea , dizzy x2-3ds. pt said she has this problem 2-3 times per year, actually she was here 2014 for same reason. PT Said usually has n/v, abd pain, when glucose is too high or too low, but she thinks recent her DM is well controlled. She mainly concerns about light headed , no vertigo. The vomiting is non bloody or bilious, abd pain located at epigastric area, moderate, no radiation, bm was loose/watery. denes fever, chills, cough, sob or chest pain. as per ERP, She actually presented initially to [facility], had CT performed there demonstrating enterocolitis, received IV cipro & flagyl, & they recommended transfer to [facility]. She refused transport because she didn't want to pay ambulance bill, & her family brought her to [place]. she dose have polydypsia. admits hba1c was high. pt's glucose was high yesterday, low this morning, better with po food. She was found have orthostatic hypotension, will dc coreg, ivf. pt has no N/V, abd pain , or diarrhea today, tolerate food well. hba1c pending. dc home, dc time 35min. GEN.: No apparent distress. Alert and oriented. HEENT: Head is normocephalic, atraumatic NECK: Supple. LUNGS: Clear to auscultation. HEART: RRR, S1, S2 present. Peripheral pulses intact ABDOMEN: Soft, Positive bowel sounds. epigastric abd tenderness EXTREMITIES: Without any cyanosis. NEUROLOGIC: Normal speech, normal tone PSYCHIATRIC: Normal affect, normal mood. SKIN: No ulcerations Patient History: FHx: Parkinson's disease Family history: Cardiovascular disease (situation) Problems: Disposition home CONDITION AT DISCHARGE: Improved Diet ada Scheduled Insulin Aspart (Novolog Flexpen), 6 UNITS SQ TIDAC Insulin Glargine,Hum.rec.anlog (Lantus Solostar), 18 UNIT SQ QHS, (Reported) Pravastatin Sodium (Pravastatin Sodium), 1 TAB PO QHS, (Reported) Discontinued Medications Carvedilol (Coreg), 1 TAB PO BID, (Reported) Follow Up pcp in 2 weeks ADEBAYO RUIZ MD Dec 04, 2016 13:06
[2016-12-04] MEDS ORDERED: INSULIN DETEMIR 300 UNITS/3 ML INSULN.PEN. SQ SCH (21:00)
== END 2016-12-04 13:05 | disposition home or self-care (01) | DRG 74 ==
LOC: ER 19:24 → 5 NORTH 20:54
PROVIDERS: ADMIT Internal Medicine; ATTEND Internal Medicine
DX: E10.43 Type 1 diabetes mellitus with diabetic autonomic (poly)neuropathy (principal); Z68.1 Body mass index [BMI] 19.9 or less, adult; K52.9 Noninfective gastroenteritis and colitis, unspecified; I95.1 Orthostatic hypotension; E10.65 Type 1 diabetes mellitus with hyperglycemia; E78.00 Pure hypercholesterolemia, unspecified; E78.5 Hyperlipidemia, unspecified; I10 Essential (primary) hypertension; E10.40 Type 1 diabetes mellitus with diabetic neuropathy, unspecified; K31.84 Gastroparesis; K21.9 Gastro-esophageal reflux disease without esophagitis; Z82.0 Family history of epilepsy and other diseases of the nervous system; Z82.49 Family history of ischemic heart disease and other diseases of the circulatory system; Z90.49 Acquired absence of other specified parts of digestive tract; Z88.0 Allergy status to penicillin; Z88.6 Allergy status to analgesic agent; I25.2 Old myocardial infarction; Z98.49 Cataract extraction status, unspecified eye; Z89.422 Acquired absence of other left toe(s); Z86.19 Personal history of other infectious and parasitic diseases; Z87.891 Personal history of nicotine dependence; Z79.899 Other long term (current) drug therapy
CPT/HCPCS: 36415; 80048; 80053; 81001; 82962; 83036; 83605; 83690; 84484; 85027; 85379; 87040; 93005; 96361; 96374; 96375; J1650; J1815; J2405; J3010; J7030; J7040; 99285-25

== ENCOUNTER 2020-12-05 18:16 | Inpatient (IN) | payer MEDICARE ==
[~2020-12-05] VITALS: Ht 167.6 cm; Wt 59.7 kg
[2020-12-05] VITALS (8 sets, daily range): BP systolic 105–125; BP diastolic 54–66
--- NOTE | 2020-12-05 06:30 | NUR ---
Pt. admitted to ICU room 112 from industrial laborer, arrived to unit on ICU bed. Catheterization site assessed with industrial laborer RN, dressing dry and intact, site soft, distal pulses intact with right foot pale but consistent with her general skin appearance, sat probe placed on right toe for continuous pulse monitoring. Family at bedside shortly after admission assisting with admission questions as pt. is only able to offer one word responses. Family states this is not her baseline but that "she gets like this when her blood sugar is high". Dr. Dillon at bedside and discussed pt. orders received. Pt. continued with only one word responses throughout shift. AM labs noted with Anion gap at 22, glucose at ~340 and ketones noted in urine. Dr. Dillon paged with these findings and returned call, orders received.
[~2020-12-05 18:16] MED LIST changes: +CARV3.12 PO; +CARV3.1210 PO; +GABA-585 PO; +INSU100I13 SQ; +INSU200I SQ; +METO10TA81 PO; +METO25TA2 PO; +POTA10TA12 PO; -POTASSIUM CHLO10 MEQ PO; +PRAV10TA2 PO; +PRAV40TA PO
[2020-12-05] MEDS ORDERED: LIDOCAINE 1% Multi-Dose 20 ML VIAL. ONE (18:24)
[2020-12-05] MEDS ORDERED: fentaNYL PF VIAL 100 MCG/2 ML VIAL ONE (18:30)
[2020-12-05] MEDS ORDERED: MIDAZOLAM HCL/PF 2 MG/2 ML VIAL. ONE (18:30)
[2020-12-05] MEDS ORDERED: TIROFIBAN 5MG -0.9% NS 100 ML IV ONE (18:39)
[2020-12-05] MEDS ORDERED: HEPARIN for IV BOLUS 10,000 UNIT/10 ML VIAL. ONE (18:39)
[2020-12-05] MEDS ORDERED: ATROPINE 1 MG/10 ML DISP.SYRINGE. ONE (18:42)
[2020-12-05] MEDS ORDERED: NITROGLYCERIN 200 MCG/2 ML SYRINGE FOR CATH/VASC LAB. ONE (18:55)
[2020-12-05] MEDS ORDERED: MIDAZOLAM HCL/PF 2 MG/2 ML VIAL. IV ONE (19:00)
[2020-12-05] MEDS ORDERED: NITROGLYCERIN 200 MCG/2 ML SYRINGE FOR CATH/VASC LAB. IART ONE (19:00)
[2020-12-05] MEDS ORDERED: LIDOCAINE 1% Multi-Dose 20 ML VIAL. INJ ONE (19:00)
[2020-12-05] MEDS ORDERED: HEPARIN for IV BOLUS 10,000 UNIT/10 ML VIAL. IV ONE (19:00)
[2020-12-05] MEDS ORDERED: IODIXANOL 320 MG/ML 100 ML VIAL. IART ONE (19:00)
[2020-12-05] MEDS ORDERED: fentaNYL PF VIAL 100 MCG/2 ML VIAL IV ONE (19:00)
[2020-12-05] MEDS ORDERED: TIROFIBAN 5MG -0.9% NS 100 ML IV PRN (19:05)
[2020-12-05] MEDS ORDERED: CONTRAST GIVEN. MC PRN (19:15)
[2020-12-05] MEDS ORDERED: NITROGLYCERIN SUBLINGUAL 0.4 MG BOTTLE OF 25. SL PRN (19:30)
[2020-12-05] MEDS ORDERED: ACETAMINOPHEN 325 MG TABLET. PO PRN (19:30)
[2020-12-05] MEDS ORDERED: LIDOCAINE 2% 100 MG/5 ML SYRINGE. IV PRN (19:30)
[2020-12-05] MEDS ORDERED: ATROPINE 0.5 MG/5 ML DISP.SYRINGE. IV PRN (19:30)
[2020-12-05] MEDS ORDERED: 0.9 % SODIUM CHLORIDE 10 ML DISP.SYRIN. IV PRN (19:30)
[2020-12-05] MEDS ORDERED: fentaNYL PF VIAL 100 MCG/2 ML VIAL IV PRN (19:30)
[2020-12-05] MEDS ORDERED: AMIODARONE 150 MG in IV DEXTROSE 5% 100ML 100 ML IV PRN (19:30)
[2020-12-05] MEDS ORDERED: CLOPIDOGREL BISULFATE 75 MG TABLET PO ONE (19:30)
--- NOTE | 2020-12-05 20:53 | CONS ---
DATE OF CONSULTATION: 12/05/2020 REASON FOR CONSULTATION: Acute inferior ST elevation OH. HISTORY OF PRESENT ILLNESS: The patient is a very pleasant 70-year-old woman who presented to [facility] in the setting of mental status changes. She was living with her boyfriend and at the eye doctor's office where she began to have some mentation changes and was felt to be related to her labile diabetes, and after having her blood sugar corrected due to having persistent acute mental status changes, she was brought to the ER at [facility] in [place]. Initial EKG demonstrated ST elevation in the inferolateral segments with posterior reciprocal depressions. The patient was unable to describe any symptoms due to her mental status changes. An acute head CT was unremarkable, and given the EKG changes, she was brought emergently to the quality lab technician at [facility] for a coronary angiogram. PAST MEDICAL HISTORY: 1. Significant labile diabetes for the last 40 years with neuropathy involving the gastroparesis. 2. Prior history of stress-induced cardiomyopathy. 3. Prior history of coronary artery disease, status post PCI to the LAD, most recently according to the family about 3 years ago. SOCIAL HISTORY: The patient is retired. No alcohol, tobacco or illicit drug use. ALLERGIES: CODEINE AND PENICILLIN. REVIEW OF SYSTEMS: Unable to be obtained due to patient's mentation changes. PHYSICAL EXAMINATION: VITAL SIGNS: Afebrile, heart rate 85, blood pressure 110/56, pulse ox 99% on room air. GENERAL: She is not alert or oriented. She is awake and moving her extremities and her eyes and head. CARDIAC: Unremarkable. LUNGS: Decreased breath sounds bilaterally. ABDOMEN: Soft, nontender, nondistended. EXTREMITIES: No clubbing, cyanosis or edema. NEUROLOGIC: No focal deficits except for mentation is noted. DIAGNOSTIC STUDIES: 1. EKG reveals [address] elevations. 2. Troponin is elevated to 8. Otherwise, no significant abnormalities are noted. IMPRESSION: 1. Acute inferior ST elevation myocardial infarction. 2. Three-vessel coronary artery disease with patent stents in the left anterior descending and left circumflex. 3. Labile diabetes. 4. Labile blood pressure. 5. Severe diabetic neuropathy. 6. Gastroparesis. RECOMMENDATIONS: 1. Continue aspirin 81 mg daily. 2. We will ensure that the patient is able to swallow and start Plavix 75 mg daily, currently she has been given a tirofiban drip. 3. Obtain echocardiogram. 4. Monitor blood pressure closely and blood sugars and treatment of diabetes per primary service. Thank you for this consultation. CHRIS DR: Rehana TID: [id number]
[2020-12-05] MEDS: ATORVASTATIN CALCIUM 20 MG TABLET PO SCH (20:55)
[2020-12-05] MEDS ORDERED: DEXTROSE 50% 25 GM / 50ML DISP.SYRIN. IV PRN (21:00)
[2020-12-05] MEDS ORDERED: CIPR250T30 PO (21:45)
[2020-12-05] MEDS ORDERED: DULO30CA2 PO (21:47)
[2020-12-05] MEDS ORDERED: ATOR40TA59 PO (21:47)
[2020-12-05] MEDS ORDERED: GABA300C18 PO (21:47)
[2020-12-05] MEDS ORDERED: ASPI325T8 PO (21:47)
[2020-12-05] MEDS ORDERED: FLUD0.1T PO (21:47)
--- NOTE | 2020-12-05 21:51 | PDOC1 ---
History and Physical Date of Service: DOS: DATE: 12/05/20 TIME: 21:42 Chief Complaint: Chief Complain: Altered mental status. History of Present Illness: HPI: History obtained from ED physician and discussion with Dr. Keenan Patient is a 70-year-old female with past medical history of diabetes mellitus for the past 40 years, neuropathy, stress-induced cardiomyopathy, CAD with stents in the LAD who was transferred from [facility] due to altered mental status. Apparently patient lives with her boyfriend and was at the doctor's office when she was beginning to have some confusion and the boyfriend felt that this might be related to her uncontrolled diabetes. Patient was brought to the ER at [facility] in [place]. Initial EKG did demonstrate ST elevation in the inferior lateral segments with posterior reciprocal depressions. She was transferred from [facility] and taken immediately to the [facility] at [facility] for left heart cath. Upon my exam, I was unable to get further history as the patient was only mumbling to my questions and only making eye contact. Discussion with the nurse who spoke with family also stated that patient has been dealing with multiple UTIs in the past. Apparently, patient has recently been taken off an antibiotic. Past Medical/Surgical History: PMH/PSH: Past medical history: Diabetes mellitus type 1?, Neuropathy, gastroparesis, CAD with stents about 3 years ago Allergies: Allergies: Coded Allergies: Penicillins (Verified Allergy, Severe, Anaphylaxis, 08/25/17) codeine (Verified Allergy, Mild, Itching, 08/25/17) Family History: Family History: Reviewed with no relevant findings Social History: Social History: Denies alcohol drug or tobacco abuse Current Medications: Current Medications Current Medications Lidocaine HCl (Lidocaine 1% 20ml Vial) 20 ml STK-MED ONCE .ROUTE ; Start 12/05/20 at 18:24; Stop 12/05/20 at 18:24; Status DC Fentanyl Citrate (Fentanyl 2ml Vial) 100 mcg STK-MED ONCE .ROUTE ; Start 12/05/20 at 18:30; Stop 12/05/20 at 18:30; Status DC Midazolam HCl (Versed) 2 mg STK-MED ONCE .ROUTE ; Start 12/05/20 at 18:30; Stop 12/05/20 at 18:31; Status DC Heparin Sodium (Porcine) (Heparin Sodium) 10,000 unit STK-MED ONCE .ROUTE ; Start 12/05/20 at 18:39; Stop 12/05/20 at 18:40; Status DC Tirofiban/Sodium Chloride 100 ml @ As Directed STK-MED ONCE IV ; Start 12/05/20 at 18:39; Stop 12/05/20 at 18:40; Status DC Atropine Sulfate (ATROPINE 1mg SYRINGE) 1 mg STK-MED ONCE .ROUTE ; Start 12/05/20 at 18:42; Stop 12/05/20 at 18:43; Status DC Nitroglycerin (Nitroglycerin) 200 mcg STK-MED ONCE .ROUTE ; Start 12/05/20 at 18:55; Stop 12/05/20 at 18:55; Status DC Nitroglycerin (Nitroglycerin) 200 mcg 1X ONCE IART Last administered on 12/05/20at 19:29; Start 12/05/20 at 19:00; Stop 12/05/20 at 19:03; Status DC Heparin Sodium/ Sodium Chloride (HEPARIN for ARTERIAL LINE FLUSH) 1,000 unit 1X ONCE IART Last administered on 12/05/20at 19:28; Start 12/05/20 at 19:00; Stop 12/05/20 at 19:03; Status DC Heparin Sodium/ Sodium Chloride (HEPARIN for ARTERIAL LINE FLUSH) 1,000 unit 1X ONCE IART Last administered on 12/05/20at 19:28; Start 12/05/20 at 19:00; Stop 12/05/20 at 19:03; Status DC Midazolam HCl (Versed) 1 mg 1X ONCE IV Last administered on 12/05/20at 19:29; Start 12/05/20 at 19:00; Stop 12/05/20 at 19:03; Status DC Fentanyl Citrate (Fentanyl 2ml Vial) 25 mcg 1X ONCE IV Last administered on 12/05/20at 19:29; Start 12/05/20 at 19:00; Stop 12/05/20 at 19:03; Status DC Iodixanol (Visipaque 320) 100 ml 1X ONCE IART Last administered on 12/05/20at 19:28; Start 12/05/20 at 19:00; Stop 12/05/20 at 19:03; Status DC Heparin Sodium (Porcine) (Heparin Sodium) 4,000 unit 1X ONCE IV Last administered on 12/05/20at 19:30; Start 12/05/20 at 19:00; Stop 12/05/20 at 19:03; Status DC Lidocaine HCl (Lidocaine 1% 20ml Vial) 10 ml 1X ONCE INJ Last administered on 12/05/20at 19:29; Start 12/05/20 at 19:00; Stop 12/05/20 at 19:03; Status DC Info (CONTRAST GIVEN -- Rx MONITORING) 1 each PRN DAILY PRN MC SEE COMMENTS; Start 12/05/20 at 19:15; Stop 12/07/20 at 19:14 Tirofiban/Sodium Chloride 100 ml @ 0 mls/hr CONT PRN IV PER PROTOCOL Last administered on 12/05/20at 19:01; Start 12/05/20 at 19:05 Sodium Chloride (Normal Saline Flush) 3 ml QSHIFT PRN IV AFTER MEDS AND BLOOD DRAWS; Start 12/05/20 at 19:30 Aspirin (Ecotrin) 81 mg DAILYWBKFT PO ; Start 12/06/20 at 08:00 Clopidogrel Bisulfate (Plavix) 75 mg DAILYWBKFT PO ; Start 12/06/20 at 08:00 Atorvastatin Calcium (Lipitor) 40 mg QHS PO ; Start 12/05/20 at 21:00 Acetaminophen (Tylenol) 650 mg PRN Q6HRS PRN PO MILD PAIN / TEMP > 100.3'F; Start 12/05/20 at 19:30 Fentanyl Citrate (Fentanyl 2ml Vial) 50 mcg PRN Q1HR PRN IV MODERATE OR SEVERE PAIN; Start 12/05/20 at 19:30 Nitroglycerin (Nitrostat) 0.4 mg PRN Q5MIN PRN SL CHEST PAIN; Start 12/05/20 at 19:30 Amiodarone HCl 150 mg/Dextrose 103 ml @ 600 mls/hr 1X PRN PRN IV FOR VENTRICULAR TACHYCARDIA; Start 12/05/20 at 19:30 Lidocaine HCl (Lidocaine HCl 2% Abboject) 100 mg 1X PRN PRN IV FOR VENTRICULAR TACHYCARDIA; Start 12/05/20 at 19:30 Atropine Sulfate (ATROPINE 0.5mg SYRINGE) 0.5 mg PRN 1X PRN IV BRADYCARDIA; Start 12/05/20 at 19:30 Clopidogrel Bisulfate (Plavix) 600 mg 1X ONCE PO ; Start 12/05/20 at 19:30; Stop 12/05/20 at 19:39; Status DC Insulin Human Lispro (HumaLOG) 0-7 UNITS TIDWMEALS SQ ; Start 12/06/20 at 08:00 Dextrose (Dextrose 50%-Water Syringe) 12.5 gm PRN Q15MIN PRN IV SEE COMMENTS; Start 12/05/20 at 21:00 Insulin Glargine (Lantus Syringe) 10 unit QHS SQ ; Start 12/05/20 at 21:00 Active Scripts Active Reported Carvedilol 3.125 Mg Tablet 1 Tab PO BID Gabapentin 100 Mg Capsule 100 Mg PO HS Reglan (Metoclopramide Hcl) 10 Mg Tablet 10 Mg PO QIDACHS PRN Pravachol (Pravastatin Sodium) 40 Mg Tablet 1 Tab PO HS Toprol Xl (Metoprolol Succinate) 25 Mg Tab.er.24h 0.5 Tab PO DAILY Lantus Solostar (Insulin Glargine,Hum.rec.anlog) 100 Unit/1 Ml Insuln.pen 18 Unit SQ QHS ROS: Review of Systems Review of System Unable to obtain due to mental status Physical Exam: Vital Signs: Vital Signs Date Time Temp Pulse Resp B/P (MAP) Pulse Ox O2 Delivery O2 Flow Rate FiO2 12/05/20 19:36 84 15 99 Nasal Cannula 2.0 Physcial Exam: GEN: No apparent distress. Alert and oriented HEENT: Normal cephalic, atraumatic, external auditory canals are patent EYES: Extraocular muscles are intact, pupil are equally round and reactive to light and accommodation MUSCULOSKELETAL: Well developed , well nourished, good range of motion ENDOCRINE: No thyromegaly was palpated LYMPHATICS: No cervical chain or axillary nodes were noted HEMATOPOIETIC: No bruising NECK: Supple, no JVD, no thyromegaly was noted LUNGS: Clear to auscultation in all lung tejeda without rhonchi or wheezing HEART: RRR, S!, S2 present. Peripheral pulses intact, no obvious murmurs noted ABDOMEN: Soft, nontender. Positive bowel sounds, no organomegaly, normal bowel sounds EXTREMITIES: Without clubbing, cyanosis, or edema. Pedal pulses intact. Negative Homans sign NEUROLOGIC: Normal speech and tone. A&O x 3, moves all extremities, no obvious focal deficits PSYCHIATRIC: Normal affect, normal mood. Stable SKIN: No ulcerations or rashes, good skin turgor, no jaundice VASCULAR: Good capillary refill, neurovascular bundle appears to be intact Labs: Labs: Pending Images: Images Pending Assessment/Plan Assessment/Plan Acute metabolic encephalopathy, possible infectious Acute STEMI Acute delirium or confusional state due to infectious versus toxic versus metabolic disturbance No obvious centrally acting medications currently. No obvious signs of infection on physical exam. No fevers or nuchal rigidity. CT head is negative for acute etiology. No history or signs of trauma Pending UA and urine cultures Will start empiric IV antibiotics if positive UA Pending TSH, B12, folate levels Pending urine toxic drug screen Consider dementia/ICU delirium prevention protocol, Provide adequate lighting (open curtains during the day, turn the lights off at night), Provide frequent personal contact with family, friends, and staff or TV Encourage early and frequent mobilization Rehab screening ordered Nutrition consult if there is malnutrition or concern for vitamin deficiencies Speech evaluation Continue aspirin, consider Plavix once patient passes speech eval Continue nitroglycerin as needed for pain Continue beta-humberto if blood pressures allow Continue high intensity statins IV morphine as needed Maintain O2 sats between 88 to 95% Repeat EKG in the a.m. Continue telemetry monitoring Monitor for electrolyte abnormalities Avoid NSAIDs Heparin for DVT prophylaxis Protonix GI prophylaxis N.p.o. until passes speech evaluation Full code Discussed with RN and SW Dispo continue ICU care A total of 50 minutes of critical care time was spent in reviewing chart, labs, and images. Discussed with RN and SW. Justifications for Admission Other Justification AIXA LUNA MD Dec 05, 2020 21:51
[2020-12-05] MEDS ORDERED: MIRT-7 PO (21:52)
[2020-12-05] MEDS ORDERED: MIDO10TA PO (21:52)
[2020-12-05] MEDS ORDERED: POTA10TA6 PO (21:52)
[2020-12-05] MEDS ORDERED: PANT40TA77 PO (21:52)
[2020-12-05] MEDS ORDERED: ONDA-84 PO (21:52)
[2020-12-05] MEDS ORDERED: METO5TAB55 PO (21:52)
[2020-12-05] MEDS ORDERED: METO25TA4 PO (21:52)
[2020-12-05] MEDS ORDERED: INSU100I13 SQ (21:52)
[2020-12-05 22:05] LABS: BILIRUBIN,URINE SMALL (NEG); CLARITY,URINE CLEAR; COLOR,URINE YELLOW; NITRITE,URINE NEGATIVE (NEG); PROTEIN,URINE NEGATIVE (NEG-TRACE); UROBILINOGEN,URINE 0.2 mg/dL (0.2 mg/dL)
[2020-12-05 22:14] LABS: BACTERIA,URINE 0 /HPF (0-FEW); HYALINE CASTS, URINE FEW /HPF; WBC,URINE 0 /HPF (0-4)
[2020-12-05 22:28] LABS: BARBITURATES NEG (NEG); BENZODIAZEPINES POS (NEG); CANNABINOIDS NEG (NEG); COCAINE NEG (NEG); METHADONE NEG (NEG); OPIATES NEG (NEG); PHENCYCLIDINE NEG (NEG)
[2020-12-05 22:30] LABS: AMPHETAMINE/METHAMPHETAMINE NEG (NEG)
[2020-12-05] MEDS: INSULIN GLARGINE SYRINGE. SQ SCH (22:40)
[2020-12-06] VITALS (24 sets, daily range): BP systolic 94–131; BP diastolic 47–71
[2020-12-06 04:38] LABS: ALBUMIN 2.8 g/dL (3.4-5.0); CALCIUM 8.5 mg/dL (8.5-10.1); CREATININE 1.1 mg/dL (0.6-1.0); DIRECT BILIRUBIN 0.1 mg/dL (0.0-0.2); GFR 48.8; POTASSIUM 3.9 mmol/L (3.5-5.1); TOTAL BILIRUBIN 0.6 mg/dL (0.2-1.0); TOTAL PROTEIN 6.5 g/dL (6.4-8.2)
[2020-12-06 04:47] LABS: CHOLESTEROL/HDL RATIO 4.1
[2020-12-06] MEDS ORDERED: POTASSIUM CHLORIDE 10MEQ 100 ML IV PRN ×2 (07:00)
[2020-12-06] MEDS ORDERED: INSULIN REGULAR VIAL 100 UNIT in IV NORMAL SALINE 100ML 100 ML IV PRN (07:00)
[2020-12-06 07:50] LABS: MAGNESIUM 1.9 mg/dL (1.8-2.4); PHOSPHORUS 3.5 mg/dL (2.6-4.7)
[2020-12-06] MEDS: INSULIN LISPRO 300 UNITS/3 ML VIAL. SQ SCH ×3 (08:00→17:00)
[2020-12-06] MEDS ORDERED: ASPIRIN ENTERIC COATED 81 MG TABLET.DR. PO SCH (08:00)
[2020-12-06] MEDS: CLOPIDOGREL BISULFATE 75 MG TABLET PO SCH (08:00)
[2020-12-06] MEDS: POTASSIUM CHLORIDE 10MEQ 100 ML IV PRN ×4 (08:22→11:07)
[2020-12-06 08:57] LABS: BASE EXCESS ABG -13 mmol/L (-3-3); HCO3 ABG 11 mmol/L (21-28); PO2 ABG 86 mmHg (65-108); SAT O2 ABG 96 % (92-99)
[2020-12-06 09:14] LABS: FIO2 ABG ROOM AIR; PCO2 ABG 19 mmHg (35-46)
[2020-12-06] MEDS ORDERED: SODIUM BICARBONATE VIAL 50 MEQ in IV NORMAL SALINE 1000ML BAG 1,000 ML IV SCH (11:00)
[2020-12-06] MEDS: ACETAMINOPHEN 325 MG SUPP.RECT. PR PRN (11:06)
--- NOTE | 2020-12-06 12:08 | PDOC ---
[employer] PROGRESS NOTE Date of Service DOS: DATE: 12/06/20 TIME: 12:07 Chief Complaint Chief Complaint Acute myocardial infarction with status post cardiac cath and 2 stents placed to the RCA DKA Prior coronary disease with prior stents Diabetes History of cardiomyopathy Polypharmacy Hyperlipidemia CHF Hypertension Neuropathy GERD History of Present Illness History of Present Illness 12/06/2020 Patient seen and examined in the ICU She is obtunded Family is present (son and [id number]) Discussed the case at length with the family Chart reviewed Discussed with rotary engraver explains that she is a frail diabetic She has slipped into DKA today Her pupils are still large but she apparently got atropine drops at the cinder crusher operator yesterday Vitals/I&O Vitals/I&O: Vital Signs Date Time Temp Pulse Resp B/P (MAP) Pulse Ox O2 Delivery O2 Flow Rate FiO2 12/06/20 11:00 129 27 103/48 (66) 100 Room Air 12/06/20 08:00 102.2 102.2 12/05/20 19:36 2.0 I & O 12/05/20 12/05/20 12/06/20 15:00 23:00 07:00 Output Total 165 ml 805 ml Balance -165 ml -805 ml Physical Exam General: Other (Obtunded not speaking) Heart: Regular rate Lungs: Clear, Other Abdomen: Normal bowel sounds Extremities: No clubbing Skin: No rashes Labs Labs: Laboratory Tests Test 12/05/20 20:50 12/05/20 21:40 12/06/20 04:00 12/06/20 07:28 Glucose (Fingerstick) 238 mg/dL (70-99) Urine Collection Type Unknown Urine Color Yellow Urine Clarity Clear Urine pH 5.0 (<5.0-8.0) Urine Specific [place] >=1.030 (1.000-1.030) Urine Protein Negative mg/dL (NEG-TRACE) Urine Glucose (UA) 500 mg/dL (NEG) Urine Ketones (Stick) 40 mg/dL (NEG) Urine Blood Moderate (NEG) Urine Nitrite Negative (NEG) Urine Bilirubin Small (NEG) Urine Urobilinogen Dipstick 0.2 mg/dL (0.2 mg/dL) Urine Leukocyte Esterase Negative (NEG) Urine RBC 3-5 /HPF (0-2) Urine WBC 0 /HPF (0-4) Urine Squamous Epithelial Cells Few /LPF Urine Bacteria 0 /HPF (0-FEW) Urine Hyaline Casts Few /HPF Urine Mucus Slight /LPF Urine Opiates Screen Neg (NEG) Urine Methadone Screen Neg (NEG) Urine Barbiturates Neg (NEG) Urine Phencyclidine Screen Neg (NEG) Urine Amphetamine/Methamphetamine Neg (NEG) Urine Benzodiazepines Screen Pos (NEG) Urine Cocaine Screen Neg (NEG) Urine Cannabinoids Screen Neg (NEG) Urine Ethyl Alcohol Neg (NEG) Sodium Level 140 mmol/L (136-145) Potassium Level 3.9 mmol/L (3.5-5.1) Chloride Level 101 mmol/L (98-107) Carbon Dioxide Level 17 mmol/L (21-32) Anion Gap 22 (6-14) Blood Urea Nitrogen 17 mg/dL (7-20) Creatinine 1.1 mg/dL (0.6-1.0) Estimated GFR (Cockcroft-Gault) 48.8 Glucose Level 343 mg/dL (70-99) Calcium Level 8.5 mg/dL (8.5-10.1) Phosphorus Level 3.5 mg/dL (2.6-4.7) Magnesium Level 1.9 mg/dL (1.8-2.4) Total Bilirubin 0.6 mg/dL (0.2-1.0) Direct Bilirubin 0.1 mg/dL (0.0-0.2) Aspartate Amino Transf (AST/SGOT) 29 U/L (15-37) Alanine Aminotransferase (ALT/SGPT) 18 U/L (14-59) Alkaline Phosphatase 128 U/L (46-116) Troponin I Quantitative 12.988 ng/mL (0.000-0.055) Total Protein 6.5 g/dL (6.4-8.2) Albumin 2.8 g/dL (3.4-5.0) Triglycerides Level 136 mg/dL (0-150) Cholesterol Level 155 mg/dL (0-200) LDL Cholesterol, Calculated 90 mg/dL (0-100) VLDL Cholesterol, Calculated 27 mg/dL (0-40) Non-HDL Cholesterol Calculated 117 mg/dL (0-129) HDL Cholesterol 38 mg/dL (40-60) Cholesterol/HDL Ratio 4.1 Thyroid Stimulating Hormone (TSH) 0.913 uIU/mL (0.358-3.74) O2 Saturation 96 % (92-99) Arterial Blood pH 7.36 (7.35-7.45) Arterial Blood pCO2 at Patient Temp 19 mmHg (35-46) Arterial Blood pO2 at Patient Temp 86 mmHg (65-108) Arterial Blood HCO3 11 mmol/L (21-28) Arterial Blood Base Excess -13 mmol/L (-3-3) FiO2 Room air Test 12/06/20 09:27 12/06/20 10:23 12/06/20 11:20 Glucose (Fingerstick) 395 mg/dL (70-99) 329 mg/dL (70-99) 278 mg/dL (70-99) Assessment and Plan Assessmemt and Plan Acute myocardial infarction with status post cardiac cath and 2 stents placed to the RCA DKA Prior coronary disease with prior stents Diabetes History of cardiomyopathy Polypharmacy Hyperlipidemia CHF Hypertension Neuropathy GERD Plan ICU monitoring Wound care Trend labs Serial enzymes still EKGs Home meds DVT prophylaxis Full code I am adding in a low-dose of prednisone as she is on Florinef at home (family states she takes Florinef for low blood pressure?) Prognosis guarded but improving Appreciate cardiology intervention CC time 31-minute Comment Review of Relevant I have reviewed the following items boyd (where applicable) has been applied. Medications: Current Medications Medications (Trade) Dose Ordered Sig/Sandeep Route PRN Reason Start Time Stop Time Status Last Admin Dose Admin Nitroglycerin (Nitroglycerin) 200 mcg 1X ONCE IART 12/05/20 19:00 12/05/20 19:03 DC 12/05/20 19:29 Heparin Sodium/ Sodium Chloride (HEPARIN for ARTERIAL LINE FLUSH) 1,000 unit 1X ONCE IART 12/05/20 19:00 12/05/20 19:03 DC 12/05/20 19:28 Heparin Sodium/ Sodium Chloride (HEPARIN for ARTERIAL LINE FLUSH) 1,000 unit 1X ONCE IART 12/05/20 19:00 12/05/20 19:03 DC 12/05/20 19:28 Midazolam HCl (Versed) 1 mg 1X ONCE IV 12/05/20 19:00 12/05/20 19:03 DC 12/05/20 19:29 Fentanyl Citrate (Fentanyl 2ml Vial) 25 mcg 1X ONCE IV 12/05/20 19:00 12/05/20 19:03 DC 12/05/20 19:29 Iodixanol (Visipaque 320) 100 ml 1X ONCE IART 12/05/20 19:00 12/05/20 19:03 DC 12/05/20 19:28 Heparin Sodium (Porcine) (Heparin Sodium) 4,000 unit 1X ONCE IV 12/05/20 19:00 12/05/20 19:03 DC 12/05/20 19:30 Lidocaine HCl (Lidocaine 1% 20ml Vial) 10 ml 1X ONCE INJ 12/05/20 19:00 12/05/20 19:03 DC 12/05/20 19:29 Tirofiban/Sodium Chloride 100 ml @ 0 mls/hr CONT PRN IV PER PROTOCOL 12/05/20 19:05 12/05/20 19:01 Insulin Glargine (Lantus Syringe) 10 unit QHS SQ 12/05/20 21:00 12/05/20 22:40 Potassium Chloride/Water 100 ml @ 100 mls/hr PRN Q1HR PRN IV SEE COMMENTS 12/06/20 07:00 12/06/20 11:07 Insulin Human Regular 100 unit/ Sodium Chloride 101 ml @ 0 mls/hr CONT PRN IV SEE I/O RECORD 12/06/20 07:00 12/06/20 08:34 Levofloxacin/ Dextrose 50 ml @ 50 mls/hr Q24H IV 12/06/20 10:15 12/06/20 11:06 Acetaminophen (Tylenol Supp) 325 mg PRN Q6HRS PRN OK MILD PAIN / TEMP > 100.3'F 12/06/20 10:45 12/06/20 11:06 Sodium Bicarbonate 50 meq/Sodium Chloride 1,050 ml @ 100 mls/hr [id number] IV 12/06/20 11:00 12/06/20 21:29 12/06/20 11:42 Justifications for Admission Other Justification СЕРГЕЙ CASTELAN III DO Dec 06, 2020 12:08
[2020-12-06] MEDS ORDERED: METOCLOPRAMIDE 10 MG TABLET. PO PRN (12:15)
[2020-12-06] MEDS ORDERED: NON FORMULARY ITEM (Ondansetron Hcl 8 MG) PO PRN (12:15)
[2020-12-06] MEDS ORDERED: GABAPENTIN 300 MG CAPSULE. PO PRN (12:15)
[2020-12-06] MEDS: FLUDROCORTISONE 0.1 MG TABLET PO SCH (13:00)
[2020-12-06] MEDS: MIDODRINE 5 MG TABLET PO SCH ×2 (13:00→17:54)
[2020-12-06] MEDS: DULoxetine HCL 30 MG CAPSULE.DR PO SCH (13:00)
[2020-12-06 13:45] LABS: CALCIUM 8.7 mg/dL (8.5-10.1); CREATININE 1.4 mg/dL (0.6-1.0); MAGNESIUM 1.8 mg/dL (1.8-2.4); PHOSPHORUS 2.2 mg/dL (2.6-4.7); POTASSIUM 4.3 mmol/L (3.5-5.1)
[2020-12-06] MEDS ORDERED: ONDANSETRON PF 4 MG/2 ML VIAL. IVP PRN (14:00)
--- NOTE | 2020-12-06 14:31 | NUR ---
1300 Assumed care of patient with assist of Rosa MCGOVERN. Resting eyes closed,nonverbal with questions. Lethargic but is reported as "normal for patient" w episode ketoacidosis.
[2020-12-06] MEDS ORDERED: CARVEDILOL 3.125 MG TABLET. PO SCH (17:00)
--- NOTE | 2020-12-06 17:09 | PDOC ---
CARDIOLOGY PROGRESS NOTE SUBJECTIVE: Patient remains somnolent, non-responsive. Being treated for DKA OBJECTIVE: Vital Signs/I&O: Vital Signs Date Time Temp Pulse Resp B/P (MAP) Pulse Ox O2 Delivery O2 Flow Rate FiO2 12/06/20 16:00 114 27 100/51 (67) 98 Room Air 12/06/20 15:00 99.0 99.0 12/05/20 19:36 2.0 I & O 12/05/20 12/05/20 12/06/20 15:00 23:00 07:00 Output Total 165 ml 805 ml Balance -165 ml -805 ml Objective: GEN.: Not alert or oriented. HEENT: Head is normocephalic, atraumatic NECK: Supple. LUNGS: Clear to auscultation. HEART: RRR, S1, S2 present. Peripheral pulses intact ABDOMEN: Soft, nontender. Positive bowel sounds. EXTREMITIES: Without any cyanosis. NEUROLOGIC: Nonresponsive, no focal signs. SKIN: No ulcerations CURRENT MEDICATIONS: No meds given. DIAGNOSTIC TESTING: Tele reviewed. Labs reviewed. ASSESSMENT: 1. Acute inferior STEMI 2. Anion gap metabolic acidosis with adequate resp compensation 3. Possible DKA 4. Acute mental status changes. PLAN: 1. Plan for NG tube placement, give asa, plavix 2. Hold all b-humberto meds. 3. Give statin 4. Monitor for improvement in AG. Unclear etiology Supportive care. Poor prognosis. Justicifation of Admission Dx: Justifications for Admission: Justification of Admission Dx: N/A SUNNY BRISENO MD Dec 06, 2020 17:09
[2020-12-06] MEDS ORDERED: CLOPIDOGREL BISULFATE 75 MG TABLET PO ONE (18:00)
--- NOTE | 2020-12-06 19:47 | CARD ---
MR#: [id number] Date of Study: 12/05/2020 Ordering Physician: SUNNY KEENAN, Referring Physician: SUNNY KEENAN, Tech: RT Hector(R) APPROVED REPORT Technologist: RT Hector(R) Nurse: Eula Glaser RN Procedure(s) performed: FLUORO TIME 8.4 DOSE 46.8GYCM2 CONTRAST 151ML VIS. MODERATE SEDATION 58 MINS LHC, Coronary angiography PCI of the RCA PTCA RPL [facility] Clinical Frailty Scale [facility] Clinical Frailty Scale: Severely Frail Heart Failure Heart Failure: Yes If Yes, Newly Diagnosed: Yes If Yes, HF Type: Diastolic Systolic If Yes, NYHA Class: Class III PROCEDURE NARRATIVE Clinical information: 70-year-old woman presented to an outside hospital in the setting of mental status changes. Initial EKG revealed severe ST segment elevation and she was brought to the catheterization laboratory at [facility] for further evaluation and treatment. Verbal informed consent was obtained for the patient's family as the patient was nonresponsive. Procedure details: Under 1% lidocaine local anesthesia a 6 [place] sheath was placed in the right common femoral artery. Next, diagnostic angiography was performed with a 6 [place] JL4 and JR4 catheters. Left ventricular end-diastolic pressure was obtained with a pigtail catheter and left ventriculography was performed a nd a pullback pressure gradient was obtained. Findings: Aorta 90/60 LVEDP 18 mmHg Left ventriculogram: EF 45%, basal and diaphragmatic wall akinesis. Coronary angiography: Left main is a large-caliber vessel with normal angiographic appearance LAD is a moderate to large caliber vessel with patent proximal to mid overlapping stents. Left circumflex is a small caliber nondominant vessel with a patent proximal stent with a 50% distal stent edge stenosis and a subtotal occlusion of the small caliber AV groove circumflex. OM1 is a small caliber vessel with an ostial 50% stenosis. RCA is a large caliber dominant vessel with a mid to distal subtotal occlusion. Interventional technique: Heparin was used for anticoagulation. Tirofiban was also administered. Through a 6 [place] JR4 guide catheter a Prowater wire was placed in the distal RPDA. Balloon angioplasty was then performed with a 2.5 x 15 mm balloon in the distal RCA at 12 [place]ton. A second wire was then placed in the RPL and a r epeat balloon angioplasty was performed with a 2 mm balloon at nominal pressures. The distal RCA les ion was then stented with a 3.0 x 18 mm drug-eluting stent. The proximal RCA lesion was then also st ented with a 3.5 x 30 mm drug-eluting stent. Final angiography demonstrated excellent stent expansio n with CLAY-3 flow no evidence of wire or guide related complications. At case completion the right groin sheath was removed and hemostasis was achieved with a Angio-Seal d evice. CLAY Flow CLAY Flow (Pre-Intervention): CLAY-0 CLAY Flow (Post-Intervention): CLAY-3 CLAY Flow CLAY Flow (Pre-Intervention): CLAY-2 CLAY Flow (Post-Intervention): CLAY-3 Conclusion 1[address] Acute inferior ST elevation FL 2. Elevated left ventricular filling pressure, LVEDP 18 mmHg 3. Mild LV systolic dysfunction, EF 40 to 45% 4. Three-vessel coronary artery disease with patent stents in the LAD and circumflex with culprit le trudi involving the RCA 5. Successful PCI of the proximal and distal RCA and PTCA of the mid RPL with implantation of a 3.5 x 30 and 3.0 x 18 mm drug-eluting stents in the RCA Recommendations 1. Aspirin 80 mg daily 2. Plavix 75 mg daily 3. Cardiac rehabilitation referral 4. Continue aggressive medical therapy for labile diabetes Signed by : Sunny Keenan, Electronically Approved : 12/06/2020 19:47:02
[2020-12-06] MEDS: ASPIRIN CHEWABLE 81 MG TABLET. PO SCH (19:49)
[2020-12-06] MEDS ORDERED: NON FORMULARY ITEM (Insulin Glargine,Hum.rec.anlog (Lantus Solostar) 18 UNIT) SQ SCH (21:00)
[2020-12-06] MEDS ORDERED: PRAVASTATIN SODIUM PO SCH (21:00)
[2020-12-06] MEDS ORDERED: CIPROFLOXACIN HCL 250 MG TABLET. PO SCH (21:00)
[2020-12-06] MEDS ORDERED: NON FORMULARY ITEM (Insulin Glargine,Hum.rec.anlog (Lantus Solostar) 10 UNIT) SQ SCH (21:00)
[2020-12-06 21:02] LABS: CALCIUM 8.5 mg/dL (8.5-10.1); CREATININE 1.2 mg/dL (0.6-1.0); GFR 44.2; POTASSIUM 4.3 mmol/L (3.5-5.1)
[2020-12-06 21:08] LABS: MAGNESIUM 1.9 mg/dL (1.8-2.4)
--- NOTE | 2020-12-06 21:26 | RAD ---
Supine abdomen. HISTORY: NG verification Supine view the abdomen shows an NG tube extending into the stomach. There are clips from a cholecyst ectomy. There is little bowel gas. IMPRESSION: 1. NG tube in the stomach. Electronically signed by: Cristian Beth MD (12/06/2020 9:23 PM) [facility]
[2020-12-06] MEDS: GABAPENTIN 100 MG CAPSULE. PO SCH (21:36)
[2020-12-06] MEDS: ATORVASTATIN CALCIUM 20 MG TABLET PO SCH (21:36)
[2020-12-06] MEDS: INSULIN GLARGINE SYRINGE. SQ SCH (22:43)
[2020-12-07] VITALS (34 sets, daily range): BP systolic 55–133; BP diastolic 30–68
--- NOTE | 2020-12-07 00:05 | RAD ---
AP chest. HISTORY: Desaturation AP view was taken of the chest. Patient has developed mild interstitial infiltrates or edema in the l eft lung. There are more prominent interstitial infiltrates or edema in the right lung with worsening compared to the CT from December 02. IMPRESSION: 1. Development of interstitial infiltrates or edema, worse on the right compared to the left. Electronically signed by: Cristian Beth MD (12/07/2020 12:02 AM) [facility]
[2020-12-07 01:01] LABS: CALCIUM 8.4 mg/dL (8.5-10.1); CREATININE 1.3 mg/dL (0.6-1.0); GFR 40.3; MAGNESIUM 1.9 mg/dL (1.8-2.4); PHOSPHORUS 3.5 mg/dL (2.6-4.7); POTASSIUM 3.9 mmol/L (3.5-5.1)
[2020-12-07 03:23] LABS: BASE EXCESS ABG -6 mmol/L (-3-3); FIO2 ABG 100; HCO3 ABG 19 mmol/L (21-28); PCO2 ABG 37 mmHg (35-46); PO2 ABG 230 mmHg (65-108); SAT O2 ABG 99 % (92-99)
--- NOTE | 2020-12-07 06:45 | NUR ---
Phoned pt's son Cristian to update on pt. condition re: respiratory distress. Son states that pt would want to be intubated if necessary. Paged Dr. Dick, returned call, updated on pt. condition including events of the evening, lab values, and currently with O2 saturation of 85% on 100% FiO2 on BiPAP, orders received including for anesthesia to intubate. Anesthesia paged and returned call, will come to unit to intubate.
[2020-12-07] MEDS ORDERED: PROPOFOL 100 ML IV ONE (06:55)
[2020-12-07] MEDS ORDERED: fentaNYL PF VIAL 100 MCG/2 ML VIAL IV PRN ×2 (07:00)
[2020-12-07] MEDS ORDERED: PROPOFOL 100 ML IV PRN (07:00)
[2020-12-07] MEDS ORDERED: MORPHINE SULFATE 4 MG/ML INJ. IV PRN (07:00)
[2020-12-07] MEDS ORDERED: MORPHINE SULFATE 2 MG/ML INJ. IV PRN (07:00)
[2020-12-07] MEDS ORDERED: PANTOPRAZOLE 40 MG TABLET.DR. PO SCH (07:30)
[2020-12-07 07:32] LABS: CALCIUM 8.9 mg/dL (8.5-10.1); CREATININE 1.2 mg/dL (0.6-1.0); GFR 44.2; POTASSIUM 4.4 mmol/L (3.5-5.1)
[2020-12-07] MEDS: DULoxetine HCL 30 MG CAPSULE.DR PO SCH (07:45)
--- NOTE | 2020-12-07 08:02 | PDOC ---
Provider Note Date of Service: DATE: 12/07/20 TIME: 07:57 Provider Note Anesthesia note: called for intubation for patient in respiratory failure s/p STEMI. #7.5 OET with 3.5 MAC after 70mg propofol and 100mg sux. Positive color change on EtCO2 indicator BSBE tube secured at 22cm by respiratory therapy. Chest Xray orderd. VSS Justifications for Admission Other Justification JONG DAVIS CRNA Dec 07, 2020 08:02
[2020-12-07] MEDS: MIDAZOLAM 100mg/100ml NS BAG 100 ML IV PRN (08:03)
[2020-12-07] MEDS: ASPIRIN CHEWABLE 81 MG TABLET. PO SCH (08:03)
[2020-12-07] MEDS: MIDODRINE 5 MG TABLET PO SCH ×3 (08:04→17:40)
[2020-12-07] MEDS: MIRTAZAPINE 15 MG TABLET PO SCH (08:04)
[2020-12-07] MEDS: FLUDROCORTISONE 0.1 MG TABLET PO SCH (08:04)
[2020-12-07] MEDS: CLOPIDOGREL BISULFATE 75 MG TABLET PO SCH (08:04)
[2020-12-07] MEDS: predniSONE 5 MG TABLET PO SCH (08:04)
[2020-12-07] MEDS: INSULIN LISPRO 300 UNITS/3 ML VIAL. SQ SCH ×4 (08:06→20:00)
--- NOTE | 2020-12-07 08:06 | RAD ---
EXAMINATION: XR CHEST 1V CLINICAL HISTORY: Status post intubation TECHNIQUE: XR CHEST 1V COMPARISON: 12/06/2020 FINDINGS/ IMPRESSION: Interval intubation with endotracheal tube terminating 1.6 cm above the betty, consider retracting s lightly for more optimal positioning. Enteric tube remains in the stomach. Improved aeration of the right lower lung zone with increasing patchy and confluent opacities in the right mid to upper lung zone. Small right pleural effusion. Remainder of the study otherwise unchange d. Electronically signed by: Eleuterio Cary DO (12/07/2020 8:04 AM) [facility]
[2020-12-07] MEDS: NOREPINEPHRINE VIAL 8 MG in IV DEXTROSE 5% 250 ML IV PRN (08:37)
[2020-12-07] MEDS ORDERED: METOPROLOL SUCC 24HR ER 25 MG TAB.ER.24H. PO SCH (09:00)
[2020-12-07] MEDS ORDERED: METOCLOPRAMIDE 5 MG TABLET. PO SCH (09:00)
[2020-12-07] MEDS ORDERED: POTASSIUM CHLORIDE 10 MEQ TABLET.ER. PO SCH (09:00)
[2020-12-07] MEDS ORDERED: METOPROLOL TART IMMED RELEASE 25 MG TABLET. PO SCH (09:00)
[2020-12-07] MEDS ORDERED: ATORVASTATIN CALCIUM 40 MG TABLET. PO SCH (09:00)
[2020-12-07 09:04] LABS: BASE EXCESS ABG -16 mmol/L (-3-3); HCO3 ABG 12 mmol/L (21-28); PCO2 ABG 36 mmHg (35-46); PO2 ABG 261 mmHg (65-108); SAT O2 ABG 99 % (92-99)
[2020-12-07 09:26] LABS: FIO2 ABG 100% VENT
--- NOTE | 2020-12-07 09:57 | PDOC ---
Provider Note Date of Service: DATE: 12/07/20 TIME: 09:51 Provider Note Anesthesiology Called to place a central line in a critically ill patient requiring IV access. Consent obtained from son, R/B/O discussed. RIJ TLC placed in usual sterile manner under US guidance. All 3 ports easily aspirated and flushed. Sterile dressing applied. Pt. tolerated well. VSS. CXR pending to confirm placement. Glenn Kim MD Justifications for Admission Other Justification LAURA KIM MD Dec 07, 2020 09:57
--- NOTE | 2020-12-07 09:59 | RAD ---
EXAMINATION: XR CHEST 1V CLINICAL HISTORY: Central line placement TECHNIQUE: XR CHEST 1V COMPARISON: 12/07/2020 7:48 AM FINDINGS/ IMPRESSION: Interval placement of right internal jugular central venous catheter terminating near the cavoatrial junction. Endotracheal and enteric tubes remain in similar positions. No pneumothorax. Remainder of t he study otherwise unchanged. Electronically signed by: Eleuterio Cary DO (12/07/2020 9:57 AM) SHANTE
[2020-12-07 10:13] LABS: BASO % 0 % (0-3); EOS % 0 % (0-3); HEMATOCRIT 33.9 % (36.0-47.0); HEMOGLOBIN 10.4 g/dL (12.0-15.5); LYMPH # 0.6 x10^3/uL (1.0-4.8); LYMPH % 4 % (24-48); MEAN CORPUSCULAR HEMOGLOBIN 29 pg (25-35); MEAN CORPUSCULAR HGB CONC 31 g/dL (31-37); MEAN CORPUSCULAR VOLUME 95 fL (79-100); MONO # 0.9 x10^3/uL (0.0-1.1); MONO % 7 % (0-9); NEUT # 11.9 x10^3/uL (1.8-7.7); NEUT % 89 % (31-73); PLATELET COUNT 354 x10^3/uL (140-400); RED BLOOD COUNT 3.58 x10^6/uL (3.50-5.40); RED CELL DISTRIBUTION WIDTH 16.4 % (11.5-14.5); WHITE BLOOD COUNT 13.4 x10^3/uL (4.0-11.0)
--- NOTE | 2020-12-07 11:11 | PDOC ---
CARDIOLOGY PROGRESS NOTE SUBJECTIVE: She has been intubated for resp failure. CXR suggestive of infiltrate, cannot rule out fluid overload. OBJECTIVE: Vital Signs/I&O: Currently in pressors. BP 80/40, VBG - Sat 70% Objective: Sedated, intubated, non-responsive tachypneic RRR soft abd No edema. Diminished pedal pulses. CURRENT MEDICATIONS: Current Medications Medications (Trade) Dose Ordered Sig/Sandeep Route PRN Reason Start Time Stop Time Status Last Admin Dose Admin Fludrocortisone Acetate (Florinef) 0.1 mg QAM PO 12/06/20 13:00 12/07/20 08:04 Gabapentin (Neurontin) 100 mg HS PO 12/06/20 21:00 12/06/20 21:36 Mirtazapine (Remeron) 15 mg DAILY PO 12/07/20 09:00 12/07/20 08:04 Midodrine (Proamatine) 10 mg [id number] PO 12/06/20 13:00 12/07/20 08:04 Prednisone (Prednisone) 5 mg DAILY PO 12/07/20 09:00 12/07/20 08:04 Ondansetron HCl (Zofran) 4 mg PRN Q6HRS PRN IVP NAUSEA/VOMITING 12/06/20 14:00 12/06/20 13:53 Clopidogrel Bisulfate (Plavix) 600 mg 1X ONCE PO 12/06/20 18:00 12/06/20 18:40 DC 12/06/20 19:49 Aspirin (Aspirin Chewable) 81 mg DAILYWBKFT PO 12/06/20 19:00 12/07/20 11:02 DC 12/07/20 08:03 Fentanyl Citrate 30 ml @ 0 mls/hr CONT PRN IV SEE PROTOCOL 12/07/20 07:00 12/07/20 08:05 Midazolam HCl 100 ml @ 0 mls/hr CONT PRN IV SEE PROTOCOL 12/07/20 07:00 12/07/20 08:03 Norepinephrine Bitartrate 8 mg/ Dextrose 258 ml @ 5.137 mls/ hr CONT PRN IV PER PROTOCOL 12/07/20 08:15 12/07/20 08:37 DIAGNOSTIC TESTING: EKG with Sinus tachycardia. Labs: Laboratory Tests 12/07/20 07:00 Laboratory Tests Test 12/06/20 11:20 12/06/20 12:32 12/06/20 13:20 12/06/20 14:17 Glucose (Fingerstick) 278 mg/dL (70-99) H 213 mg/dL (70-99) H 119 mg/dL (70-99) H Sodium Level 146 mmol/L (136-145) H Potassium Level 4.3 mmol/L (3.5-5.1) Chloride Level 108 mmol/L (98-107) H Carbon Dioxide Level 19 mmol/L (21-32) L Anion Gap 19 (6-14) H Blood Urea Nitrogen 15 mg/dL (7-20) Creatinine 1.4 mg/dL (0.6-1.0) H Estimated GFR (Cockcroft-Gault) 37.0 Glucose Level 171 mg/dL (70-99) H Calcium Level 8.7 mg/dL (8.5-10.1) Phosphorus Level 2.2 mg/dL (2.6-4.7) L Test 12/06/20 17:35 12/06/20 18:46 12/06/20 20:04 12/06/20 20:40 Glucose (Fingerstick) 108 mg/dL (70-99) H 106 mg/dL (70-99) H 197 mg/dL (70-99) H Sodium Level 148 mmol/L (136-145) H Potassium Level 4.3 mmol/L (3.5-5.1) Chloride Level 109 mmol/L (98-107) H Carbon Dioxide Level 19 mmol/L (21-32) L Anion Gap 20 (6-14) H Blood Urea Nitrogen 17 mg/dL (7-20) Creatinine 1.2 mg/dL (0.6-1.0) H Estimated GFR (Cockcroft-Gault) 44.2 Glucose Level 207 mg/dL (70-99) H Calcium Level 8.5 mg/dL (8.5-10.1) Alkaline Phosphatase 114 U/L (46-116) Test 12/06/20 21:31 12/06/20 22:29 12/06/20 23:31 12/07/20 00:34 Glucose (Fingerstick) 183 mg/dL (70-99) H 150 mg/dL (70-99) H 115 mg/dL (70-99) H 84 mg/dL (70-99) Test 12/07/20 00:38 12/07/20 02:15 12/07/20 02:44 12/07/20 04:41 Sodium Level 148 mmol/L (136-145) H Potassium Level 3.9 mmol/L (3.5-5.1) Chloride Level 111 mmol/L (98-107) H Carbon Dioxide Level 25 mmol/L (21-32) Anion Gap 12 (6-14) Blood Urea Nitrogen 17 mg/dL (7-20) Creatinine 1.3 mg/dL (0.6-1.0) H Estimated GFR (Cockcroft-Gault) 40.3 Glucose Level 95 mg/dL (70-99) Calcium Level 8.4 mg/dL (8.5-10.1) L Phosphorus Level 3.5 mg/dL (2.6-4.7) O2 Saturation 99 % (92-99) Arterial Blood pH 7.34 (7.35-7.45) L Arterial Blood pCO2 at Patient Temp 37 mmHg (35-46) Arterial Blood pO2 at Patient Temp 230 mmHg (65-108) H Arterial Blood HCO3 19 mmol/L (21-28) L Arterial Blood Base Excess -6 mmol/L (-3-3) L FiO2 100 Glucose (Fingerstick) 116 mg/dL (70-99) H 203 mg/dL (70-99) H Test 12/07/20 07:00 12/07/20 07:44 12/07/20 08:00 White Blood Count 13.4 x10^3/uL (4.0-11.0) H Red Blood Count 3.58 x10^6/uL (3.50-5.40) Hemoglobin 10.4 g/dL (12.0-15.5) L Hematocrit 33.9 % (36.0-47.0) L Mean Corpuscular Volume 95 fL (79-100) Mean Corpuscular Hemoglobin 29 pg (25-35) Mean Corpuscular Hemoglobin Concent 31 g/dL (31-37) Red Cell Distribution Width 16.4 % (11.5-14.5) H Platelet Count 354 x10^3/uL (140-400) Neutrophils (%) (Auto) 89 % (31-73) H Lymphocytes (%) (Auto) 4 % (24-48) L Monocytes (%) (Auto) 7 % (0-9) Eosinophils (%) (Auto) 0 % (0-3) Basophils (%) (Auto) 0 % (0-3) Neutrophils # (Auto) 11.9 x10^3/uL (1.8-7.7) H Lymphocytes # (Auto) 0.6 x10^3/uL (1.0-4.8) L Monocytes # (Auto) 0.9 x10^3/uL (0.0-1.1) Eosinophils # (Auto) 0.0 x10^3/uL (0.0-0.7) Basophils # (Auto) 0.0 x10^3/uL (0.0-0.2) Sodium Level 145 mmol/L (136-145) Potassium Level 4.4 mmol/L (3.5-5.1) Chloride Level 108 mmol/L (98-107) H Carbon Dioxide Level 16 mmol/L (21-32) L Anion Gap 21 (6-14) H Blood Urea Nitrogen 18 mg/dL (7-20) Creatinine 1.2 mg/dL (0.6-1.0) H Estimated GFR (Cockcroft-Gault) 44.2 Glucose Level 290 mg/dL (70-99) H Calcium Level 8.9 mg/dL (8.5-10.1) Glucose (Fingerstick) 250 mg/dL (70-99) H O2 Saturation 99 % (92-99) Arterial Blood pH 7.13 (7.35-7.45) *L Arterial Blood pCO2 at Patient Temp 36 mmHg (35-46) Arterial Blood pO2 at Patient Temp 261 mmHg (65-108) H Arterial Blood HCO3 12 mmol/L (21-28) L Arterial Blood Base Excess -16 mmol/L (-3-3) L FiO2 100% vent ASSESSMENT: 1. Inferior stemi 2. Possible sepsis and hypoxic resp failure 3. Possible adrenal insufficiency. PLAN: 1. Continue present meds. 2. No further CV input. Supportive care. Justicifation of Admission Dx: Justifications for Admission: Justification of Admission Dx: N/A SUNNY BRISENO MD Dec 07, 2020 11:11
[2020-12-07] MEDS ORDERED: IV NORMAL SALINE 500ML BAG 500 ML IV ONE (11:15)
[2020-12-07] MEDS: ASPIRIN 325 MG TABLET PO SCH (11:16)
--- NOTE | 2020-12-07 12:22 | CONS ---
DATE OF CONSULTATION: 12/07/2020 CHIEF COMPLAINT: I was asked to see this 70-year-old lady for acute respiratory failure. HISTORY OF PRESENT ILLNESS: The patient is currently on the ventilator, sedated with Versed and fentanyl. She is not able to give any information. All of the information was obtained from chart and nursing staff. She was transferred to [facility] from [facility]. She presented to [facility] with mental status changes. She was found to have acute MS. She was transferred to [facility], underwent cardiac catheterization and on 12/05/2020 in the evening she was found to have an acute inferior ST elevation MS, elevated left ventricular filling pressure with LVEDP of 18 mmHg, mild LV systolic dysfunction, ejection fraction 40-45%, three-vessel coronary artery disease with patent stent in LAD and circumflex with culprit lesion involving the RCA and successful PCI of the proximal and distal RCA and PTCA of the mid RPL with implantation of drug-eluting stent in RCA. The patient has been lethargic since admission. She never woke up, she was found to have DKA, was on insulin drip until this morning. Overnight she became tachypneic and had desaturation, was placed on BiPAP, which she tolerated it for short period of time, but she had more desaturation. I was called and I asked Anesthesia to intubate her because she was not responsive and also had significant desaturation. She is currently intubated. She is on Levophed. She is on Versed and fentanyl. She has a large amount of ET tube secretion. PAST MEDICAL HISTORY: Coronary artery disease, diabetes mellitus, cardiomyopathy, coronary artery disease. SOCIAL HISTORY: Per chart, no history of tobacco use. ALLERGIES: CODEINE AND PENICILLIN. MEDICATIONS: Currently she is on Protonix, meropenem, prednisone (unknown reason for prednisone), KCl, Remeron, Reglan, aspirin, Levophed, gabapentin. SOCIAL HISTORY: No tobacco per chart. FAMILY HISTORY: Unable to obtain. The patient is on the ventilator, sedated. REVIEW OF SYSTEMS: Unable to obtain. The patient is on the ventilator and sedated. PHYSICAL EXAMINATION: GENERAL: This is a thin lady, chronically ill appearing. VITAL SIGNS: Her O2 saturation on 70% FiO2 is 95%, respiratory rate 27, heart rate 120, blood pressure 90/60. HEENT: Normocephalic, atraumatic. Pupils equal, round, reactive to light. She is orally intubated. Nose is clear. NECK: There is no JVD or lymphadenopathy. CARDIOVASCULAR: Tachycardic. Chest inspection is normal. CHEST: Bilateral crackles and wheezing. ABDOMEN: Soft. Bowel sounds are good. There is no mass. EXTREMITIES: There is no edema. LYMPHATICS: There is no lymphadenopathy. NEUROLOGIC: Sedated on the ventilator. I reviewed the following data: Chest x-ray shows ET tube is in good position, right-sided infiltrate, worse on upper and middle lobe area. Her chest x-ray before intubation, which was done late last night showed bilateral infiltrate, right more than left. WBC 13.4, hemoglobin 10.4, platelet 354. ABG: pH 7.13, pCO2 of 36, pO2 of 61 on assist control rate of 20, tidal volume 350, PEEP of 5, FiO2 of 100%. Sodium 145, potassium 4.4, chloride 108, CO2 of 16, BUN 18, creatinine 1.2, GFR 44.2. Her urine drug screen was negative. On admission troponin 12.9. IMPRESSION: 1. Acute hypoxemic respiratory failure, multifactorial in etiology including aspiration pneumonia, acute systolic congestive heart failure, DKA, rule out cerebrovascular accident. 2. Abnormal chest x-ray, suspect secondary to aspiration pneumonia and acute systolic congestive heart failure. 3. Diabetic ketoacidosis. 4. Encephalopathy question boyd etiology. 5. Acute inferior ST elevation myocardial infarction, status post percutaneous coronary intervention and stent placement. 6. Acute kidney injury. 8. Hypertension, rule out septic shock. 9. Diabetes mellitus. PLAN AND RECOMMENDATIONS: 1. Titrate FIO2 to keep O2 saturation 94%. 2. Continue ventilator support. ABG was reviewed. I increased her rate to 24. She has severe metabolic acidosis. Hopefully, will improve with treatment of DKA. 3. I do recommend nephrology consultation. 4. Cardiology is on the case. 5. ID is consulted. Change antibiotic from Zosyn to meropenem. 6. Sputum for Gram stain and culture, blood culture and urine culture. Follow up results. 7. Continue pressors to keep mean arterial pressure 65. 8. Echocardiogram per cardiology. 9. The findings and recommendations were discussed with RN and RT and ID. Thank you very much for allowing me to participate in care of this very nice, but critically ill lady. critically ill This is critical care time 30 minutes without overlap. ALECIA/JOS DR: ALECIA/arnol TID: [id number] MTDD
[2020-12-07 12:27] LABS: % BANDS 8 % (0-9); % LYMPHS 5 % (24-48); % MONOS 7 % (0-10); % SEGS 80 % (35-66)
[2020-12-07 12:28] LABS: PLT ESTIMATE ADEQUATE (ADEQUATE)
--- NOTE | 2020-12-07 13:19 | PDOC ---
[employer] PROGRESS NOTE Date of Service DOS: DATE: 12/07/20 TIME: 13:14 Chief Complaint Chief Complaint Acute myocardial infarction with status post cardiac cath and 2 stents placed to the RCA DKA Prior coronary disease with prior stents Diabetes History of cardiomyopathy Polypharmacy Hyperlipidemia CHF Hypertension Neuropathy GERD History of Present Illness History of Present Illness 12/07/2020 Patient seen and examined in the ICU She had to be intubated overnight Assist-control/24/350/50 percent with 5 of PEEP Anion gap slightly improved down to 21 I asked the nurse to resume the DKA protocol with the insulin drip She has mitts on for patient safety Sedated with fentanyl and Versed On IV Levophed as well She is critically ill Chart reviewed 12/06/2020 Patient seen and examined in the ICU She is obtunded Family is present (son and [id number]) Discussed the case at length with the family Chart reviewed Discussed with baggage clerk explains that she is a frail diabetic She has slipped into DKA today Her pupils are still large but she apparently got atropine drops at the social science professor yesterday Vitals/I&O Vitals/I&O: Vital Signs Date Time Temp Pulse Resp B/P (MAP) Pulse Ox O2 Delivery O2 Flow Rate FiO2 12/07/20 12:00 99.2 119 26 109/44 (65) 96 Ventilator 99.2 12/07/20 01:50 3.0 I & O 12/06/20 12/06/20 12/07/20 15:00 23:00 07:00 Intake Total 2205 ml 150 ml Output Total 735 ml 590 ml 110 ml Balance -735 ml 1615 ml 40 ml Physical Exam General: Other (Obtunded not speaking) Heart: Regular rate Lungs: Clear, Other Abdomen: Normal bowel sounds Extremities: No clubbing Skin: No rashes Labs Labs: Laboratory Tests Test 12/06/20 13:20 12/06/20 14:17 12/06/20 17:35 12/06/20 18:46 Sodium Level 146 mmol/L (136-145) Potassium Level 4.3 mmol/L (3.5-5.1) Chloride Level 108 mmol/L (98-107) Carbon Dioxide Level 19 mmol/L (21-32) Anion Gap 19 (6-14) Blood Urea Nitrogen 15 mg/dL (7-20) Creatinine 1.4 mg/dL (0.6-1.0) Estimated GFR (Cockcroft-Gault) 37.0 Glucose Level 171 mg/dL (70-99) Calcium Level 8.7 mg/dL (8.5-10.1) Phosphorus Level 2.2 mg/dL (2.6-4.7) Magnesium Level 1.8 mg/dL (1.8-2.4) Glucose (Fingerstick) 119 mg/dL (70-99) 108 mg/dL (70-99) 106 mg/dL (70-99) Test 12/06/20 20:04 12/06/20 20:40 12/06/20 21:31 12/06/20 22:29 Glucose (Fingerstick) 197 mg/dL (70-99) 183 mg/dL (70-99) 150 mg/dL (70-99) Sodium Level 148 mmol/L (136-145) Potassium Level 4.3 mmol/L (3.5-5.1) Chloride Level 109 mmol/L (98-107) Carbon Dioxide Level 19 mmol/L (21-32) Anion Gap 20 (6-14) Blood Urea Nitrogen 17 mg/dL (7-20) Creatinine 1.2 mg/dL (0.6-1.0) Estimated GFR (Cockcroft-Gault) 44.2 Glucose Level 207 mg/dL (70-99) Calcium Level 8.5 mg/dL (8.5-10.1) Magnesium Level 1.9 mg/dL (1.8-2.4) Alkaline Phosphatase 114 U/L (46-116) Test 12/06/20 23:31 12/07/20 00:34 12/07/20 00:38 12/07/20 02:15 Glucose (Fingerstick) 115 mg/dL (70-99) 84 mg/dL (70-99) Sodium Level 148 mmol/L (136-145) Potassium Level 3.9 mmol/L (3.5-5.1) Chloride Level 111 mmol/L (98-107) Carbon Dioxide Level 25 mmol/L (21-32) Anion Gap 12 (6-14) Blood Urea Nitrogen 17 mg/dL (7-20) Creatinine 1.3 mg/dL (0.6-1.0) Estimated GFR (Cockcroft-Gault) 40.3 Glucose Level 95 mg/dL (70-99) Calcium Level 8.4 mg/dL (8.5-10.1) Phosphorus Level 3.5 mg/dL (2.6-4.7) Magnesium Level 1.9 mg/dL (1.8-2.4) O2 Saturation 99 % (92-99) Arterial Blood pH 7.34 (7.35-7.45) Arterial Blood pCO2 at Patient Temp 37 mmHg (35-46) Arterial Blood pO2 at Patient Temp 230 mmHg (65-108) Arterial Blood HCO3 19 mmol/L (21-28) Arterial Blood Base Excess -6 mmol/L (-3-3) FiO2 100 Test 12/07/20 02:44 12/07/20 04:41 12/07/20 07:00 12/07/20 07:44 Glucose (Fingerstick) 116 mg/dL (70-99) 203 mg/dL (70-99) 250 mg/dL (70-99) White Blood Count 13.4 x10^3/uL (4.0-11.0) Red Blood Count 3.58 x10^6/uL (3.50-5.40) Hemoglobin 10.4 g/dL (12.0-15.5) Hematocrit 33.9 % (36.0-47.0) Mean Corpuscular Volume 95 fL (79-100) Mean Corpuscular Hemoglobin 29 pg (25-35) Mean Corpuscular Hemoglobin Concent 31 g/dL (31-37) Red Cell Distribution Width 16.4 % (11.5-14.5) Platelet Count 354 x10^3/uL (140-400) Neutrophils (%) (Auto) 89 % (31-73) Lymphocytes (%) (Auto) 4 % (24-48) Monocytes (%) (Auto) 7 % (0-9) Eosinophils (%) (Auto) 0 % (0-3) Basophils (%) (Auto) 0 % (0-3) Neutrophils # (Auto) 11.9 x10^3/uL (1.8-7.7) Lymphocytes # (Auto) 0.6 x10^3/uL (1.0-4.8) Monocytes # (Auto) 0.9 x10^3/uL (0.0-1.1) Eosinophils # (Auto) 0.0 x10^3/uL (0.0-0.7) Basophils # (Auto) 0.0 x10^3/uL (0.0-0.2) Segmented Neutrophils % 80 % (35-66) Band Neutrophils % 8 % (0-9) Lymphocytes % 5 % (24-48) Monocytes % 7 % (0-10) Platelet Estimate Adequate (ADEQUATE) Large Platelets Present Sodium Level 145 mmol/L (136-145) Potassium Level 4.4 mmol/L (3.5-5.1) Chloride Level 108 mmol/L (98-107) Carbon Dioxide Level 16 mmol/L (21-32) Anion Gap 21 (6-14) Blood Urea Nitrogen 18 mg/dL (7-20) Creatinine 1.2 mg/dL (0.6-1.0) Estimated GFR (Cockcroft-Gault) 44.2 Glucose Level 290 mg/dL (70-99) Calcium Level 8.9 mg/dL (8.5-10.1) Test 12/07/20 08:00 12/07/20 11:36 O2 Saturation 99 % (92-99) Arterial Blood pH 7.13 (7.35-7.45) Arterial Blood pCO2 at Patient Temp 36 mmHg (35-46) Arterial Blood pO2 at Patient Temp 261 mmHg (65-108) Arterial Blood HCO3 12 mmol/L (21-28) Arterial Blood Base Excess -16 mmol/L (-3-3) FiO2 100% vent Glucose (Fingerstick) 297 mg/dL (70-99) Assessment and Plan Assessmemt and Plan Acute myocardial infarction with status post cardiac cath and 2 stents placed to the RCA Respiratory failure requiring mechanical ventilation DKA Prior coronary disease with prior stents Diabetes History of cardiomyopathy Polypharmacy Hyperlipidemia CHF Hypertension Neuropathy GERD Plan ICU monitoring Resume DKA protocol with insulin drip (she may not be able to tolerate much fluids as she is volume overloaded) Wound care Trend labs Serial enzymes still EKGs Home meds DVT prophylaxis Full code I am adding in a low-dose of prednisone as she is on Florinef at home (family states she takes Florinef for low blood pressure?) Prognosis guarded but improving Appreciate cardiology intervention CC time 34-minute Comment Review of Relevant I have reviewed the following items boyd (where applicable) has been applied. Medications: Current Medications Medications (Trade) Dose Ordered Sig/Sandeep Route PRN Reason Start Time Stop Time Status Last Admin Dose Admin Aspirin (Jake Aspirin) 325 mg DAILY PO 12/07/20 09:00 12/07/20 11:16 Gabapentin (Neurontin) 100 mg HS PO 12/06/20 21:00 12/06/20 21:36 Mirtazapine (Remeron) 15 mg DAILY PO 12/07/20 09:00 12/07/20 08:04 Prednisone (Prednisone) 5 mg DAILY PO 12/07/20 09:00 12/07/20 08:04 Ondansetron HCl (Zofran) 4 mg PRN Q6HRS PRN IVP NAUSEA/VOMITING 12/06/20 14:00 12/06/20 13:53 Clopidogrel Bisulfate (Plavix) 600 mg 1X ONCE PO 12/06/20 18:00 12/06/20 18:40 DC 12/06/20 19:49 Aspirin (Aspirin Chewable) 81 mg DAILYWBKFT PO 12/06/20 19:00 12/07/20 11:02 DC 12/07/20 08:03 Fentanyl Citrate 30 ml @ 0 mls/hr CONT PRN IV SEE PROTOCOL 12/07/20 07:00 12/07/20 08:05 Midazolam HCl 100 ml @ 0 mls/hr CONT PRN IV SEE PROTOCOL 12/07/20 07:00 12/07/20 08:03 Norepinephrine Bitartrate 8 mg/ Dextrose 258 ml @ 5.137 mls/ hr CONT PRN IV PER PROTOCOL 12/07/20 08:15 12/07/20 08:37 Sodium Chloride 500 ml @ 500 mls/hr 1X ONCE IV 12/07/20 11:15 12/07/20 12:14 DC 12/07/20 11:16 Justifications for Admission Other Justification СЕРГЕЙ CASTELAN III DO Dec 07, 2020 13:19
[2020-12-07] MEDS: MEROPENEM 500 MG in IV NORMAL SALINE 50ML 50 ML IV SCH ×2 (13:41→21:46)
[2020-12-07 16:14] LABS: CALCIUM 8.2 mg/dL (8.5-10.1); CREATININE 1.7 mg/dL (0.6-1.0); GFR 29.5; PHOSPHORUS 3.8 mg/dL (2.6-4.7); POTASSIUM 3.9 mmol/L (3.5-5.1)
[2020-12-07] MEDS ORDERED: POTASSIUM CHLORIDE 20MEQ 100 ML IV ONE (17:00)
[2020-12-07] MEDS ORDERED: MAGNESIUM SULFATE 2GM 50 ML IV ONE (17:00)
[2020-12-07] MEDS ORDERED: INSULIN REGULAR VIAL 100 UNIT in IV NORMAL SALINE 100ML IV PRN (17:30)
[2020-12-07] MEDS ORDERED: INSULIN REGULAR VIAL 100 UNIT in IV NORMAL SALINE 100ML 100 ML IV PRN (17:45)
--- NOTE | 2020-12-07 17:49 | CONS ---
DATE OF CONSULTATION: 12/07/2020 REFERRING PHYSICIAN: Griselda Antonio DO. REASON FOR CONSULTATION: Pneumonia and fever. HISTORY OF PRESENT ILLNESS: This is a 70-year-old female who came in from [place]. The patient presented there with some confusion, initially low blood glucose and then high blood glucose. The patient then was found to have a myocardial infarction. Hence, she was transferred and the patient underwent cardiac catheterization and angioplasty. The patient was doing fine on post-angioplasty, but then subsequently became hypoxic and required intubation. The patient is currently intubated on a ventilator with a small dose of vasopressor support. The patient had 101.7 temperature and tachycardic. White count is 13.4, elevated glucose as she was initially even acidotic, troponin up to 12.9, pulmonary infiltrate. The patient is currently sedated, orally intubated, on the ventilator. All the information was obtained through chart review, discussing with the patient's RN as well as the patient's son. PAST MEDICAL HISTORY: Positive for coronary artery disease, hyperlipidemia, hypertension, has had cholecystectomy. She has had C. diff for a while ago, most recent 3 weeks or 4 weeks of "UTI" with 3 rounds of antibiotics. Diabetes mellitus. SOCIAL HISTORY: The son denies that she is smoking or alcohol use or drug use. ALLERGIES: LISTED ALLERGIC TO PENICILLIN. REVIEW OF SYSTEMS: As in HPI, all other systems are reviewed through the patient's son and RN as I mentioned in HPI. No nausea, vomiting, diarrhea noted. CURRENT MEDICATIONS: The patient is on levofloxacin. The patient had received Cipro, Bactrim, and nitrofurantoin in last month or month and a half. PHYSICAL EXAMINATION: GENERAL: Sedated, orally intubated female, not in distress. VITAL SIGNS: Temperature max is 101.7, pulse 115, respirations 27, blood pressure 121/59. HEENT: Both pupils are round and reacting. No conjunctival lesion. Mouth cannot be visualized, orally intubated. NECK: Supple, no JVP, no lymphadenopathy. LUNGS: Clear. HEART: S1, S2 regular. ABDOMEN: Soft, nontender, no organomegaly. EXTREMITIES: No edema, cyanosis. SKIN: Unremarkable. NEUROLOGIC: The patient is sedated, orally intubated. No focal deficit can be appreciated right now. LABORATORY DATA: White count is 13.4, BUN and creatinine is 18 and 1.2. Urinalysis unremarkable for infection. Cultures are pending. Chest x-ray showed development of interstitial infiltrate or edema. IMPRESSION: 1. Fever. 2. Leukocytosis. 3. Myocardial infarction, status post cardiac catheterization and angioplasty. 4. Respiratory failure. 5. Pulmonary edema versus pulmonary infection. 6. Diabetes. RECOMMENDATIONS: We will discontinue Levaquin, start her on meropenem. Supportive care and we will continue to follow. Thank you very much, Dr. Antonio, for giving me an opportunity to participate in this patient's care. CAR[facility] [place] [place]: CARMELINA/arnol TID: [id number]
[2020-12-07] MEDS: ATORVASTATIN CALCIUM 20 MG TABLET PO SCH (21:45)
[2020-12-07] MEDS: GABAPENTIN 100 MG CAPSULE. PO SCH (21:45)
[2020-12-07] MEDS: INSULIN GLARGINE SYRINGE. SQ SCH (21:46)
[2020-12-08] VITALS (25 sets, daily range): BP systolic 95–122; BP diastolic 37–61
[2020-12-08] MEDS: INSULIN LISPRO 300 UNITS/3 ML VIAL. SQ SCH ×6 (04:00→20:00)
[2020-12-08] MEDS: MIDAZOLAM 100mg/100ml NS BAG 100 ML IV PRN (04:57)
[2020-12-08] MEDS: NOREPINEPHRINE VIAL 8 MG in IV DEXTROSE 5% 250 ML IV PRN (04:58)
[2020-12-08 05:40] LABS: CALCIUM 8.3 mg/dL (8.5-10.1); CREATININE 1.3 mg/dL (0.6-1.0); GFR 40.3; POTASSIUM 4.2 mmol/L (3.5-5.1)
[2020-12-08] MEDS: MEROPENEM 500 MG in IV NORMAL SALINE 50ML 50 ML IV SCH ×3 (05:48→21:37)
[2020-12-08 06:01] LABS: BASO % 0 % (0-3); EOS % 0 % (0-3); HEMATOCRIT 29.7 % (36.0-47.0); HEMOGLOBIN 9.6 g/dL (12.0-15.5); LYMPH # 0.5 x10^3/uL (1.0-4.8); LYMPH % 5 % (24-48); MEAN CORPUSCULAR HEMOGLOBIN 30 pg (25-35); MEAN CORPUSCULAR HGB CONC 32 g/dL (31-37); MEAN CORPUSCULAR VOLUME 91 fL (79-100); MONO # 0.4 x10^3/uL (0.0-1.1); MONO % 4 % (0-9); NEUT # 9.3 x10^3/uL (1.8-7.7); NEUT % 91 % (31-73); PLATELET COUNT 299 x10^3/uL (140-400); RED BLOOD COUNT 3.27 x10^6/uL (3.50-5.40); RED CELL DISTRIBUTION WIDTH 15.8 % (11.5-14.5); WHITE BLOOD COUNT 10.2 x10^3/uL (4.0-11.0)
[2020-12-08] MEDS: PANTOPRAZOLE IV PUSH 40 MG VIAL. IVP SCH (07:02)
[2020-12-08] MEDS: ASPIRIN 325 MG TABLET PO SCH (07:02)
[2020-12-08] MEDS: MIDODRINE 5 MG TABLET PO SCH ×3 (07:03→17:19)
[2020-12-08] MEDS: MIRTAZAPINE 15 MG TABLET PO SCH (07:03)
[2020-12-08] MEDS: CLOPIDOGREL BISULFATE 75 MG TABLET PO SCH (07:03)
[2020-12-08] MEDS: predniSONE 5 MG TABLET PO SCH (07:03)
[2020-12-08] MEDS: FLUDROCORTISONE 0.1 MG TABLET PO SCH (07:03)
[2020-12-08] MEDS: DULoxetine HCL 30 MG CAPSULE.DR PO SCH (07:03)
--- NOTE | 2020-12-08 07:50 | PDOC ---
Infectious Disease Note Subjective Subjective pt is intubated on vent ROS ROS no n/v/d/fever Vital Sign Vital Signs Vital Signs Date Time Temp Pulse Resp B/P (MAP) Pulse Ox O2 Delivery O2 Flow Rate FiO2 12/08/20 07:36 Mechanical Ventilator 12/08/20 07:03 110 96/41 12/08/20 07:00 24 98 12/08/20 04:00 98.9 98.9 Physical Exam PHYSICAL EXAM GENERAL: Sedated, orally intubated female, not in distress. VITAL SIGNS: stable HEENT: Both pupils are round and reacting. No conjunctival lesion. Mouth cannot be visualized, orally intubated. NECK: Supple, no JVP, no lymphadenopathy. LUNGS: Clear. HEART: S1, S2 regular. ABDOMEN: Soft, nontender, no organomegaly. EXTREMITIES: No edema, cyanosis. SKIN: Unremarkable. NEUROLOGIC: The patient is sedated, orally intubated. No focal deficit can be appreciated right now. Labs Lab Laboratory Tests Test 12/07/20 07:44 12/07/20 08:00 12/07/20 11:36 12/07/20 14:19 Glucose (Fingerstick) 250 mg/dL (70-99) 297 mg/dL (70-99) 210 mg/dL (70-99) O2 Saturation 99 % (92-99) Arterial Blood pH 7.13 (7.35-7.45) Arterial Blood pCO2 at Patient Temp 36 mmHg (35-46) Arterial Blood pO2 at Patient Temp 261 mmHg (65-108) Arterial Blood HCO3 12 mmol/L (21-28) Arterial Blood Base Excess -16 mmol/L (-3-3) FiO2 100% vent Test 12/07/20 15:08 12/07/20 15:54 12/07/20 15:55 12/07/20 17:14 Glucose (Fingerstick) 144 mg/dL (70-99) 146 mg/dL (70-99) 119 mg/dL (70-99) Sodium Level 148 mmol/L (136-145) Potassium Level 3.9 mmol/L (3.5-5.1) Chloride Level 113 mmol/L (98-107) Carbon Dioxide Level 22 mmol/L (21-32) Anion Gap 13 (6-14) Blood Urea Nitrogen 21 mg/dL (7-20) Creatinine 1.7 mg/dL (0.6-1.0) Estimated GFR (Cockcroft-Gault) 29.5 Glucose Level 147 mg/dL (70-99) Calcium Level 8.2 mg/dL (8.5-10.1) Phosphorus Level 3.8 mg/dL (2.6-4.7) Magnesium Level 1.7 mg/dL (1.8-2.4) Test 12/07/20 18:12 12/07/20 19:54 12/07/20 21:42 12/07/20 23:15 Glucose (Fingerstick) 105 mg/dL (70-99) 131 mg/dL (70-99) 166 mg/dL (70-99) 165 mg/dL (70-99) Test 12/08/20 00:30 12/08/20 02:36 12/08/20 05:08 12/08/20 05:10 Glucose (Fingerstick) 146 mg/dL (70-99) 124 mg/dL (70-99) 106 mg/dL (70-99) White Blood Count 10.2 x10^3/uL (4.0-11.0) Red Blood Count 3.27 x10^6/uL (3.50-5.40) Hemoglobin 9.6 g/dL (12.0-15.5) Hematocrit 29.7 % (36.0-47.0) Mean Corpuscular Volume 91 fL (79-100) Mean Corpuscular Hemoglobin 30 pg (25-35) Mean Corpuscular Hemoglobin Concent 32 g/dL (31-37) Red Cell Distribution Width 15.8 % (11.5-14.5) Platelet Count 299 x10^3/uL (140-400) Neutrophils (%) (Auto) 91 % (31-73) Lymphocytes (%) (Auto) 5 % (24-48) Monocytes (%) (Auto) 4 % (0-9) Eosinophils (%) (Auto) 0 % (0-3) Basophils (%) (Auto) 0 % (0-3) Neutrophils # (Auto) 9.3 x10^3/uL (1.8-7.7) Lymphocytes # (Auto) 0.5 x10^3/uL (1.0-4.8) Monocytes # (Auto) 0.4 x10^3/uL (0.0-1.1) Eosinophils # (Auto) 0.0 x10^3/uL (0.0-0.7) Basophils # (Auto) 0.0 x10^3/uL (0.0-0.2) Sodium Level 145 mmol/L (136-145) Potassium Level 4.2 mmol/L (3.5-5.1) Chloride Level 113 mmol/L (98-107) Carbon Dioxide Level 22 mmol/L (21-32) Anion Gap 10 (6-14) Blood Urea Nitrogen 23 mg/dL (7-20) Creatinine 1.3 mg/dL (0.6-1.0) Estimated GFR (Cockcroft-Gault) 40.3 Glucose Level 114 mg/dL (70-99) Calcium Level 8.3 mg/dL (8.5-10.1) Magnesium Level 2.2 mg/dL (1.8-2.4) Objective Assessment IMPRESSION: 1. Fever. 2. Leukocytosis. 3. Myocardial infarction, status post cardiac catheterization and angioplasty. 4. Respiratory failure. 5. Pulmonary edema versus pulmonary infection. 6. Diabetes. Plan Plan of Care cont antibiotics cont supportive care OSWALD DEL RIO MD Dec 08, 2020 07:50
--- NOTE | 2020-12-08 08:38 | PDOC ---
CARDIOLOGY PROGRESS NOTE SUBJECTIVE: No new issues. Remains intubated and sedated OBJECTIVE: Vital Signs/I&O: Vital Signs Date Time Temp Pulse Resp B/P (MAP) Pulse Ox O2 Delivery O2 Flow Rate FiO2 12/08/20 08:00 99.8 90 24 103/48 (66) 98 Ventilator 99.8 I & O 12/07/20 12/07/20 12/08/20 15:00 23:00 07:00 Intake Total 550 ml 308 ml 148 ml Output Total 65 ml 130 ml 140 ml Balance 485 ml 178 ml 8 ml Objective: GEN.: No apparent distress. sedated HEENT: Head is normocephalic, atraumatic NECK: Supple. LUNGS: Clear to auscultation. HEART: RRR, S1, S2 present. Peripheral pulses intact ABDOMEN: Soft, nontender. Positive bowel sounds. EXTREMITIES: Without any cyanosis. NEUROLOGIC: sedated SKIN: No ulcerations CURRENT MEDICATIONS: asa, plavix, statin levophed DIAGNOSTIC TESTING: Labs: Laboratory Tests 12/08/20 05:10 Laboratory Tests Test 12/07/20 11:36 12/07/20 14:19 12/07/20 15:08 12/07/20 15:54 Glucose (Fingerstick) 297 mg/dL (70-99) H 210 mg/dL (70-99) H 144 mg/dL (70-99) H 146 mg/dL (70-99) H Test 12/07/20 15:55 12/07/20 17:14 12/07/20 18:12 12/07/20 19:54 Sodium Level 148 mmol/L (136-145) H Potassium Level 3.9 mmol/L (3.5-5.1) Chloride Level 113 mmol/L (98-107) H Carbon Dioxide Level 22 mmol/L (21-32) Anion Gap 13 (6-14) Blood Urea Nitrogen 21 mg/dL (7-20) H Creatinine 1.7 mg/dL (0.6-1.0) H Estimated GFR (Cockcroft-Gault) 29.5 Glucose Level 147 mg/dL (70-99) H Calcium Level 8.2 mg/dL (8.5-10.1) L Phosphorus Level 3.8 mg/dL (2.6-4.7) Glucose (Fingerstick) 119 mg/dL (70-99) H 105 mg/dL (70-99) H 131 mg/dL (70-99) H Test 12/07/20 21:42 12/07/20 23:15 12/08/20 00:30 12/08/20 02:36 Glucose (Fingerstick) 166 mg/dL (70-99) H 165 mg/dL (70-99) H 146 mg/dL (70-99) H 124 mg/dL (70-99) H Test 12/08/20 05:08 12/08/20 05:10 Glucose (Fingerstick) 106 mg/dL (70-99) H White Blood Count 10.2 x10^3/uL (4.0-11.0) Red Blood Count 3.27 x10^6/uL (3.50-5.40) L Hemoglobin 9.6 g/dL (12.0-15.5) L Hematocrit 29.7 % (36.0-47.0) L Mean Corpuscular Volume 91 fL (79-100) Mean Corpuscular Hemoglobin 30 pg (25-35) Mean Corpuscular Hemoglobin Concent 32 g/dL (31-37) Red Cell Distribution Width 15.8 % (11.5-14.5) H Platelet Count 299 x10^3/uL (140-400) Neutrophils (%) (Auto) 91 % (31-73) H Lymphocytes (%) (Auto) 5 % (24-48) L Monocytes (%) (Auto) 4 % (0-9) Eosinophils (%) (Auto) 0 % (0-3) Basophils (%) (Auto) 0 % (0-3) Neutrophils # (Auto) 9.3 x10^3/uL (1.8-7.7) H Lymphocytes # (Auto) 0.5 x10^3/uL (1.0-4.8) L Monocytes # (Auto) 0.4 x10^3/uL (0.0-1.1) Eosinophils # (Auto) 0.0 x10^3/uL (0.0-0.7) Basophils # (Auto) 0.0 x10^3/uL (0.0-0.2) Sodium Level 145 mmol/L (136-145) Potassium Level 4.2 mmol/L (3.5-5.1) Chloride Level 113 mmol/L (98-107) H Carbon Dioxide Level 22 mmol/L (21-32) Anion Gap 10 (6-14) Blood Urea Nitrogen 23 mg/dL (7-20) H Creatinine 1.3 mg/dL (0.6-1.0) H Estimated GFR (Cockcroft-Gault) 40.3 Glucose Level 114 mg/dL (70-99) H Calcium Level 8.3 mg/dL (8.5-10.1) L ASSESSMENT: 1. Inferior STEMI 2. New fever/? sepsis 3. Resp failure - PNA versus pulm edema PLAN: 1. Supportive care. Fluid status is probably even. Stable CV key. Continue present meds. Justicifation of Admission Dx: Justifications for Admission: Justification of Admission Dx: N/A SUNNY BRISENO MD Dec 08, 2020 08:38
[2020-12-08] MEDS: DAPTOMYCIN IV SCH (09:34)
[2020-12-08] MEDS: NORMAL SALINE IV SCH (09:34)
[2020-12-08 09:37] LABS: BASE EXCESS ABG -2 mmol/L (-3-3); HCO3 ABG 22 mmol/L (21-28); PCO2 ABG 36 mmHg (35-46); PO2 ABG 103 mmHg (65-108); SAT O2 ABG 98 % (92-99)
[2020-12-08 09:38] LABS: FIO2 ABG 45
[2020-12-08] MEDS ORDERED: ALBUMIN HUMAN 5% 500 ML IV ONE (10:00)
--- NOTE | 2020-12-08 11:40 | PDOC ---
PULMONARY PROGRESS NOTES DATE: 12/08/20 TIME: 11:33 Subjective pt. remains on vent support low grade fever overnight no other concerns from nursing on Levo gtt Vitals Vital Signs Date Time Temp Pulse Resp B/P (MAP) Pulse Ox O2 Delivery O2 Flow Rate FiO2 12/08/20 11:32 Mechanical Ventilator 12/08/20 11:00 89 24 122/60 (80) 100 12/08/20 08:00 99.8 99.8 Comments sedated/ intubated Lungs: Clear Cardiovascular: S1, S2 Abdomen: Soft Extremities: No Edema Skin: Warm, Dry Labs Laboratory Tests Test 12/06/20 12:32 12/06/20 13:20 12/06/20 14:17 12/06/20 17:35 Glucose (Fingerstick) 213 mg/dL (70-99) 119 mg/dL (70-99) 108 mg/dL (70-99) Sodium Level 146 mmol/L (136-145) Potassium Level 4.3 mmol/L (3.5-5.1) Chloride Level 108 mmol/L (98-107) Carbon Dioxide Level 19 mmol/L (21-32) Anion Gap 19 (6-14) Blood Urea Nitrogen 15 mg/dL (7-20) Creatinine 1.4 mg/dL (0.6-1.0) Estimated GFR (Cockcroft-Gault) 37.0 Glucose Level 171 mg/dL (70-99) Calcium Level 8.7 mg/dL (8.5-10.1) Phosphorus Level 2.2 mg/dL (2.6-4.7) Magnesium Level 1.8 mg/dL (1.8-2.4) Test 12/06/20 18:46 12/06/20 20:04 12/06/20 20:40 12/06/20 21:31 Glucose (Fingerstick) 106 mg/dL (70-99) 197 mg/dL (70-99) 183 mg/dL (70-99) Sodium Level 148 mmol/L (136-145) Potassium Level 4.3 mmol/L (3.5-5.1) Chloride Level 109 mmol/L (98-107) Carbon Dioxide Level 19 mmol/L (21-32) Anion Gap 20 (6-14) Blood Urea Nitrogen 17 mg/dL (7-20) Creatinine 1.2 mg/dL (0.6-1.0) Estimated GFR (Cockcroft-Gault) 44.2 Glucose Level 207 mg/dL (70-99) Calcium Level 8.5 mg/dL (8.5-10.1) Magnesium Level 1.9 mg/dL (1.8-2.4) Alkaline Phosphatase 114 U/L (46-116) Test 12/06/20 22:29 12/06/20 23:31 12/07/20 00:34 12/07/20 00:38 Glucose (Fingerstick) 150 mg/dL (70-99) 115 mg/dL (70-99) 84 mg/dL (70-99) Sodium Level 148 mmol/L (136-145) Potassium Level 3.9 mmol/L (3.5-5.1) Chloride Level 111 mmol/L (98-107) Carbon Dioxide Level 25 mmol/L (21-32) Anion Gap 12 (6-14) Blood Urea Nitrogen 17 mg/dL (7-20) Creatinine 1.3 mg/dL (0.6-1.0) Estimated GFR (Cockcroft-Gault) 40.3 Glucose Level 95 mg/dL (70-99) Calcium Level 8.4 mg/dL (8.5-10.1) Phosphorus Level 3.5 mg/dL (2.6-4.7) Magnesium Level 1.9 mg/dL (1.8-2.4) Test 12/07/20 02:15 12/07/20 02:44 12/07/20 04:41 12/07/20 07:00 O2 Saturation 99 % (92-99) Arterial Blood pH 7.34 (7.35-7.45) Arterial Blood pCO2 at Patient Temp 37 mmHg (35-46) Arterial Blood pO2 at Patient Temp 230 mmHg (65-108) Arterial Blood HCO3 19 mmol/L (21-28) Arterial Blood Base Excess -6 mmol/L (-3-3) FiO2 100 Glucose (Fingerstick) 116 mg/dL (70-99) 203 mg/dL (70-99) White Blood Count 13.4 x10^3/uL (4.0-11.0) Red Blood Count 3.58 x10^6/uL (3.50-5.40) Hemoglobin 10.4 g/dL (12.0-15.5) Hematocrit 33.9 % (36.0-47.0) Mean Corpuscular Volume 95 fL (79-100) Mean Corpuscular Hemoglobin 29 pg (25-35) Mean Corpuscular Hemoglobin Concent 31 g/dL (31-37) Red Cell Distribution Width 16.4 % (11.5-14.5) Platelet Count 354 x10^3/uL (140-400) Neutrophils (%) (Auto) 89 % (31-73) Lymphocytes (%) (Auto) 4 % (24-48) Monocytes (%) (Auto) 7 % (0-9) Eosinophils (%) (Auto) 0 % (0-3) Basophils (%) (Auto) 0 % (0-3) Neutrophils # (Auto) 11.9 x10^3/uL (1.8-7.7) Lymphocytes # (Auto) 0.6 x10^3/uL (1.0-4.8) Monocytes # (Auto) 0.9 x10^3/uL (0.0-1.1) Eosinophils # (Auto) 0.0 x10^3/uL (0.0-0.7) Basophils # (Auto) 0.0 x10^3/uL (0.0-0.2) Segmented Neutrophils % 80 % (35-66) Band Neutrophils % 8 % (0-9) Lymphocytes % 5 % (24-48) Monocytes % 7 % (0-10) Platelet Estimate Adequate (ADEQUATE) Large Platelets Present Sodium Level 145 mmol/L (136-145) Potassium Level 4.4 mmol/L (3.5-5.1) Chloride Level 108 mmol/L (98-107) Carbon Dioxide Level 16 mmol/L (21-32) Anion Gap 21 (6-14) Blood Urea Nitrogen 18 mg/dL (7-20) Creatinine 1.2 mg/dL (0.6-1.0) Estimated GFR (Cockcroft-Gault) 44.2 Glucose Level 290 mg/dL (70-99) Calcium Level 8.9 mg/dL (8.5-10.1) Test 12/07/20 07:44 12/07/20 08:00 12/07/20 11:36 12/07/20 14:19 Glucose (Fingerstick) 250 mg/dL (70-99) 297 mg/dL (70-99) 210 mg/dL (70-99) O2 Saturation 99 % (92-99) Arterial Blood pH 7.13 (7.35-7.45) Arterial Blood pCO2 at Patient Temp 36 mmHg (35-46) Arterial Blood pO2 at Patient Temp 261 mmHg (65-108) Arterial Blood HCO3 12 mmol/L (21-28) Arterial Blood Base Excess -16 mmol/L (-3-3) FiO2 100% vent Test 12/07/20 15:08 12/07/20 15:54 12/07/20 15:55 12/07/20 17:14 Glucose (Fingerstick) 144 mg/dL (70-99) 146 mg/dL (70-99) 119 mg/dL (70-99) Sodium Level 148 mmol/L (136-145) Potassium Level 3.9 mmol/L (3.5-5.1) Chloride Level 113 mmol/L (98-107) Carbon Dioxide Level 22 mmol/L (21-32) Anion Gap 13 (6-14) Blood Urea Nitrogen 21 mg/dL (7-20) Creatinine 1.7 mg/dL (0.6-1.0) Estimated GFR (Cockcroft-Gault) 29.5 Glucose Level 147 mg/dL (70-99) Calcium Level 8.2 mg/dL (8.5-10.1) Phosphorus Level 3.8 mg/dL (2.6-4.7) Magnesium Level 1.7 mg/dL (1.8-2.4) Test 12/07/20 18:12 12/07/20 19:54 12/07/20 21:42 12/07/20 23:15 Glucose (Fingerstick) 105 mg/dL (70-99) 131 mg/dL (70-99) 166 mg/dL (70-99) 165 mg/dL (70-99) Test 12/08/20 00:30 12/08/20 02:36 12/08/20 05:08 12/08/20 05:10 Glucose (Fingerstick) 146 mg/dL (70-99) 124 mg/dL (70-99) 106 mg/dL (70-99) White Blood Count 10.2 x10^3/uL (4.0-11.0) Red Blood Count 3.27 x10^6/uL (3.50-5.40) Hemoglobin 9.6 g/dL (12.0-15.5) Hematocrit 29.7 % (36.0-47.0) Mean Corpuscular Volume 91 fL (79-100) Mean Corpuscular Hemoglobin 30 pg (25-35) Mean Corpuscular Hemoglobin Concent 32 g/dL (31-37) Red Cell Distribution Width 15.8 % (11.5-14.5) Platelet Count 299 x10^3/uL (140-400) Neutrophils (%) (Auto) 91 % (31-73) Lymphocytes (%) (Auto) 5 % (24-48) Monocytes (%) (Auto) 4 % (0-9) Eosinophils (%) (Auto) 0 % (0-3) Basophils (%) (Auto) 0 % (0-3) Neutrophils # (Auto) 9.3 x10^3/uL (1.8-7.7) Lymphocytes # (Auto) 0.5 x10^3/uL (1.0-4.8) Monocytes # (Auto) 0.4 x10^3/uL (0.0-1.1) Eosinophils # (Auto) 0.0 x10^3/uL (0.0-0.7) Basophils # (Auto) 0.0 x10^3/uL (0.0-0.2) Sodium Level 145 mmol/L (136-145) Potassium Level 4.2 mmol/L (3.5-5.1) Chloride Level 113 mmol/L (98-107) Carbon Dioxide Level 22 mmol/L (21-32) Anion Gap 10 (6-14) Blood Urea Nitrogen 23 mg/dL (7-20) Creatinine 1.3 mg/dL (0.6-1.0) Estimated GFR (Cockcroft-Gault) 40.3 Glucose Level 114 mg/dL (70-99) Calcium Level 8.3 mg/dL (8.5-10.1) Magnesium Level 2.2 mg/dL (1.8-2.4) Test 12/08/20 08:00 12/08/20 11:26 O2 Saturation 98 % (92-99) Arterial Blood pH 7.40 (7.35-7.45) Arterial Blood pCO2 at Patient Temp 36 mmHg (35-46) Arterial Blood pO2 at Patient Temp 103 mmHg (65-108) Arterial Blood HCO3 22 mmol/L (21-28) Arterial Blood Base Excess -2 mmol/L (-3-3) FiO2 45 Glucose (Fingerstick) 126 mg/dL (70-99) Laboratory Tests Test 12/07/20 11:36 12/07/20 14:19 12/07/20 15:08 12/07/20 15:54 Glucose (Fingerstick) 297 mg/dL (70-99) 210 mg/dL (70-99) 144 mg/dL (70-99) 146 mg/dL (70-99) Test 12/07/20 15:55 12/07/20 17:14 12/07/20 18:12 12/07/20 19:54 Sodium Level 148 mmol/L (136-145) Potassium Level 3.9 mmol/L (3.5-5.1) Chloride Level 113 mmol/L (98-107) Carbon Dioxide Level 22 mmol/L (21-32) Anion Gap 13 (6-14) Blood Urea Nitrogen 21 mg/dL (7-20) Creatinine 1.7 mg/dL (0.6-1.0) Estimated GFR (Cockcroft-Gault) 29.5 Glucose Level 147 mg/dL (70-99) Calcium Level 8.2 mg/dL (8.5-10.1) Phosphorus Level 3.8 mg/dL (2.6-4.7) Magnesium Level 1.7 mg/dL (1.8-2.4) Glucose (Fingerstick) 119 mg/dL (70-99) 105 mg/dL (70-99) 131 mg/dL (70-99) Test 12/07/20 21:42 12/07/20 23:15 12/08/20 00:30 12/08/20 02:36 Glucose (Fingerstick) 166 mg/dL (70-99) 165 mg/dL (70-99) 146 mg/dL (70-99) 124 mg/dL (70-99) Test 12/08/20 05:08 12/08/20 05:10 12/08/20 08:00 12/08/20 11:26 Glucose (Fingerstick) 106 mg/dL (70-99) 126 mg/dL (70-99) White Blood Count 10.2 x10^3/uL (4.0-11.0) Red Blood Count 3.27 x10^6/uL (3.50-5.40) Hemoglobin 9.6 g/dL (12.0-15.5) Hematocrit 29.7 % (36.0-47.0) Mean Corpuscular Volume 91 fL (79-100) Mean Corpuscular Hemoglobin 30 pg (25-35) Mean Corpuscular Hemoglobin Concent 32 g/dL (31-37) Red Cell Distribution Width 15.8 % (11.5-14.5) Platelet Count 299 x10^3/uL (140-400) Neutrophils (%) (Auto) 91 % (31-73) Lymphocytes (%) (Auto) 5 % (24-48) Monocytes (%) (Auto) 4 % (0-9) Eosinophils (%) (Auto) 0 % (0-3) Basophils (%) (Auto) 0 % (0-3) Neutrophils # (Auto) 9.3 x10^3/uL (1.8-7.7) Lymphocytes # (Auto) 0.5 x10^3/uL (1.0-4.8) Monocytes # (Auto) 0.4 x10^3/uL (0.0-1.1) Eosinophils # (Auto) 0.0 x10^3/uL (0.0-0.7) Basophils # (Auto) 0.0 x10^3/uL (0.0-0.2) Sodium Level 145 mmol/L (136-145) Potassium Level 4.2 mmol/L (3.5-5.1) Chloride Level 113 mmol/L (98-107) Carbon Dioxide Level 22 mmol/L (21-32) Anion Gap 10 (6-14) Blood Urea Nitrogen 23 mg/dL (7-20) Creatinine 1.3 mg/dL (0.6-1.0) Estimated GFR (Cockcroft-Gault) 40.3 Glucose Level 114 mg/dL (70-99) Calcium Level 8.3 mg/dL (8.5-10.1) Magnesium Level 2.2 mg/dL (1.8-2.4) O2 Saturation 98 % (92-99) Arterial Blood pH 7.40 (7.35-7.45) Arterial Blood pCO2 at Patient Temp 36 mmHg (35-46) Arterial Blood pO2 at Patient Temp 103 mmHg (65-108) Arterial Blood HCO3 22 mmol/L (21-28) Arterial Blood Base Excess -2 mmol/L (-3-3) FiO2 45 Medications Active Scripts Medications Dose Route/Sig Max Daily Dose Days Date Category Dose Instructions Reglan (Metoclopramide Hcl) 5 Mg Tablet 1 Tab PO QAM 12/05/20 Reported 1 hour prior to procedure Klor-Con 10 (Potassium Chloride) 10 Meq Tablet.er 1 Tab PO DAILY 30 12/05/20 Reported Pantoprazole Sodium (Pantoprazole Sodium) 40 Mg Tablet.dr 40 Mg PO DAILYAC 12/05/20 Reported Ondansetron Hcl 4 Mg Tablet 8 Mg PO BID PRN 12/05/20 Reported Midodrine Hcl 10 Mg Tablet 10 Mg PO TID 12/05/20 Reported Mirtazapine 15 Mg Tablet 15 Mg PO DAILY 12/05/20 Reported Metoprolol Tartrate 25 Mg Tablet 1 Tab PO QAM 12/05/20 Reported Lantus Solostar (Insulin Glargine,Hum.rec.anlog) 100 Unit/1 Ml Insuln.pen 10 Unit SQ QHS 12/05/20 Reported Gabapentin (Gabapentin) 300 Mg Capsule 300 Mg PO PRN QHS PRN 12/05/20 Reported Fludrocortisone Acetate 0.1 Mg Tablet 0.1 Mg PO QAM 12/05/20 Reported Cymbalta (Duloxetine Hcl) 30 Mg Capsule.dr 1 Cap PO DAILY 12/05/20 Reported Atorvastatin Calcium 40 Mg Tablet 1 Tab PO DAILY 12/05/20 Reported Aspirin 325 Mg Tablet 1 Tab PO DAILY 12/05/20 Reported Cipro (Ciprofloxacin Hcl) 250 Mg Tablet 1 Tab PO BID 7 12/05/20 Reported Carvedilol (Carvedilol) 3.125 Mg Tablet 1 Tab PO BID 08/25/17 Reported Gabapentin (Gabapentin) 100 Mg Capsule 100 Mg PO HS 08/25/17 Reported Reglan (Metoclopramide Hcl) 10 Mg Tablet 10 Mg PO QIDACHS PRN 08/25/17 Reported Pravachol (Pravastatin Sodium) 40 Mg Tablet 1 Tab PO HS 08/25/17 Reported Toprol Xl (Metoprolol Succinate) 25 Mg Tab.er.24h 0.5 Tab PO DAILY 08/25/17 Reported Lantus Solostar (Insulin Glargine,Hum.rec.anlog) 100 Unit/1 Ml Insuln.pen 18 Unit SQ QHS 12/02/16 Reported Impression . IMPRESSION: 1. Acute hypoxemic respiratory failure, multifactorial in etiology including aspiration pneumonia, acute systolic congestive heart failure, DKA, rule out cerebrovascular accident. 2. Abnormal chest x-ray, suspect secondary to aspiration pneumonia and acute systolic congestive heart failure. 3. Diabetic ketoacidosis. 4. Encephalopathy question boyd etiology. 5. Acute inferior ST elevation myocardial infarction, status post percutaneous coronary intervention and stent placement. 6. Acute kidney injury. 8. Hypotension, rule out septic shock. 9. Diabetes mellitus. Plan . Updated 12/08/20 Continue current vent support A/C mode 45% and PEEP of 7 proceed with reducing sedation to assess neurological function and ability to proceed with PS trial Follow CXR/ABG Continue vasopressor to keep MAP above 65, Albumin PRN Follow Cardiology recs-- S/P PCI to RCA-- EF 45% Follow ID recs-- for ABX/ Fever, follow cultures Staph. A on Resp. Culture DM I per PCP DVT/GI PPX D/W RN and RT PLAN AND RECOMMENDATIONS:12/07/20 1. Titrate FIO2 to keep O2 saturation 94%. 2. Continue ventilator support. ABG was reviewed. I increased her rate to 24. She has severe metabolic acidosis. Hopefully, will improve with treatment of DKA. 3. I do recommend nephrology consultation. 4. Cardiology is on the case. 5. ID is consulted. Change antibiotic from Zosyn to meropenem. 6. Sputum for Gram stain and culture, blood culture and urine culture. Follow up results. 7. Continue pressors to keep mean arterial pressure 65. 8. Echocardiogram per cardiology. 9. The findings and recommendations were discussed with RN and RT and ID. SALEEM WILDER MD Dec 08, 2020 11:39
--- NOTE | 2020-12-08 13:51 | PDOC ---
[employer] PROGRESS NOTE Date of Service DOS: DATE: 12/08/20 TIME: 13:48 Chief Complaint Chief Complaint Acute myocardial infarction with status post cardiac cath and 2 stents placed to the RCA DKA Prior coronary disease with prior stents Diabetes History of cardiomyopathy Polypharmacy Hyperlipidemia CHF Hypertension Neuropathy GERD History of Present Illness History of Present Illness 12/08/2020 Patient seen and examined in the ICU Remains intubated and sedated Anion gap is improved insulin drip turned off Otherwise no major changes from previous day Continuing antibiotics Will wean ventilator as tolerated 12/07/2020 Patient seen and examined in the ICU She had to be intubated overnight Assist-control/24/350/50 percent with 5 of PEEP Anion gap slightly improved down to 21 I asked the nurse to resume the DKA protocol with the insulin drip She has mitts on for patient safety Sedated with fentanyl and Versed On IV Levophed as well She is critically ill Chart reviewed 12/06/2020 Patient seen and examined in the ICU She is obtunded Family is present (son and [id number]) Discussed the case at length with the family Chart reviewed Discussed with sliver cutter explains that she is a frail diabetic She has slipped into DKA today Her pupils are still large but she apparently got atropine drops at the pig farmer yesterday Vitals/I&O Vitals/I&O: Vital Signs Date Time Temp Pulse Resp B/P (MAP) Pulse Ox O2 Delivery O2 Flow Rate FiO2 12/08/20 13:10 87 100/47 12/08/20 13:00 24 100 Ventilator 12/08/20 12:00 98.8 98.8 I & O 12/07/20 12/07/20 12/08/20 15:00 23:00 07:00 Intake Total 550 ml 308 ml 148 ml Output Total 65 ml 130 ml 140 ml Balance 485 ml 178 ml 8 ml Physical Exam Physical Exam: GENERAL: Sedated, orally intubated female, not in distress. VITAL SIGNS: stable HEENT: Both pupils are round and reacting. No conjunctival lesion. Mouth cannot be visualized, orally intubated. NECK: Supple, no JVP, no lymphadenopathy. LUNGS: Clear. HEART: S1, S2 regular. ABDOMEN: Soft, nontender, no organomegaly. EXTREMITIES: No edema, cyanosis. SKIN: Unremarkable. NEUROLOGIC: The patient is sedated, orally intubated. No focal deficit can be appreciated right now. General: Other (Intubated, sedated) Heart: Regular rate, Normal S1, Normal S2 Lungs: Other (Coarse throughout however no focal wheezing) Abdomen: Normal bowel sounds, Soft Extremities: No clubbing, No edema Skin: No rashes Labs Labs: Laboratory Tests Test 12/07/20 14:19 12/07/20 15:08 12/07/20 15:54 12/07/20 15:55 Glucose (Fingerstick) 210 mg/dL (70-99) 144 mg/dL (70-99) 146 mg/dL (70-99) Sodium Level 148 mmol/L (136-145) Potassium Level 3.9 mmol/L (3.5-5.1) Chloride Level 113 mmol/L (98-107) Carbon Dioxide Level 22 mmol/L (21-32) Anion Gap 13 (6-14) Blood Urea Nitrogen 21 mg/dL (7-20) Creatinine 1.7 mg/dL (0.6-1.0) Estimated GFR (Cockcroft-Gault) 29.5 Glucose Level 147 mg/dL (70-99) Calcium Level 8.2 mg/dL (8.5-10.1) Phosphorus Level 3.8 mg/dL (2.6-4.7) Magnesium Level 1.7 mg/dL (1.8-2.4) Test 12/07/20 17:14 12/07/20 18:12 12/07/20 19:54 12/07/20 21:42 Glucose (Fingerstick) 119 mg/dL (70-99) 105 mg/dL (70-99) 131 mg/dL (70-99) 166 mg/dL (70-99) Test 12/07/20 23:15 12/08/20 00:30 12/08/20 02:36 12/08/20 05:08 Glucose (Fingerstick) 165 mg/dL (70-99) 146 mg/dL (70-99) 124 mg/dL (70-99) 106 mg/dL (70-99) Test 12/08/20 05:10 12/08/20 08:00 12/08/20 11:26 White Blood Count 10.2 x10^3/uL (4.0-11.0) Red Blood Count 3.27 x10^6/uL (3.50-5.40) Hemoglobin 9.6 g/dL (12.0-15.5) Hematocrit 29.7 % (36.0-47.0) Mean Corpuscular Volume 91 fL (79-100) Mean Corpuscular Hemoglobin 30 pg (25-35) Mean Corpuscular Hemoglobin Concent 32 g/dL (31-37) Red Cell Distribution Width 15.8 % (11.5-14.5) Platelet Count 299 x10^3/uL (140-400) Neutrophils (%) (Auto) 91 % (31-73) Lymphocytes (%) (Auto) 5 % (24-48) Monocytes (%) (Auto) 4 % (0-9) Eosinophils (%) (Auto) 0 % (0-3) Basophils (%) (Auto) 0 % (0-3) Neutrophils # (Auto) 9.3 x10^3/uL (1.8-7.7) Lymphocytes # (Auto) 0.5 x10^3/uL (1.0-4.8) Monocytes # (Auto) 0.4 x10^3/uL (0.0-1.1) Eosinophils # (Auto) 0.0 x10^3/uL (0.0-0.7) Basophils # (Auto) 0.0 x10^3/uL (0.0-0.2) Sodium Level 145 mmol/L (136-145) Potassium Level 4.2 mmol/L (3.5-5.1) Chloride Level 113 mmol/L (98-107) Carbon Dioxide Level 22 mmol/L (21-32) Anion Gap 10 (6-14) Blood Urea Nitrogen 23 mg/dL (7-20) Creatinine 1.3 mg/dL (0.6-1.0) Estimated GFR (Cockcroft-Gault) 40.3 Glucose Level 114 mg/dL (70-99) Calcium Level 8.3 mg/dL (8.5-10.1) Magnesium Level 2.2 mg/dL (1.8-2.4) O2 Saturation 98 % (92-99) Arterial Blood pH 7.40 (7.35-7.45) Arterial Blood pCO2 at Patient Temp 36 mmHg (35-46) Arterial Blood pO2 at Patient Temp 103 mmHg (65-108) Arterial Blood HCO3 22 mmol/L (21-28) Arterial Blood Base Excess -2 mmol/L (-3-3) FiO2 45 Glucose (Fingerstick) 126 mg/dL (70-99) Review of Systems Review of Systems: Cannot be obtained as patient intubated Assessment and Plan Assessmemt and Plan Acute myocardial infarction with status post cardiac cath and 2 stents placed to the RCA Respiratory failure requiring mechanical ventilation DKA Prior coronary disease with prior stents Diabetes History of cardiomyopathy Polypharmacy Hyperlipidemia CHF Hypertension Neuropathy GERD Plan ICU monitoring No longer requiring insulin drip we will continue to closely monitor sugars Trend labs DVT prophylaxis Full code I am adding in a low-dose of prednisone as she is on Florinef at home (family states she takes Florinef for low blood pressure?) Prognosis guarded but improving; possible weaning trial tomorrow December 09 Appreciate cardiology intervention Family at bedside updated on plan of care Problems: (1) DKA (diabetic ketoacidoses) (2) STEMI (ST elevation myocardial infarction) (3) Abdominal pain (4) Respiratory failure requiring intubation Comment Review of Relevant I have reviewed the following items boyd (where applicable) has been applied. Medications: Current Medications Medications (Trade) Dose Ordered Sig/Sandeep Route PRN Reason Start Time Stop Time Status Last Admin Dose Admin Pantoprazole Sodium (PROTONIX VIAL for IV PUSH) 40 mg DAILYAC IVP 12/08/20 07:30 12/08/20 07:02 Meropenem 500 mg/ Sodium Chloride 50 ml @ 100 mls/hr Q8HRS IV 12/07/20 14:00 12/08/20 13:44 Insulin Glargine (Lantus Syringe) 20 unit QHS SQ 12/07/20 21:00 12/07/20 21:46 Potassium Chloride/Water 100 ml @ 100 mls/hr 1X ONCE IV 12/07/20 17:00 12/07/20 17:59 DC 12/07/20 16:48 Magnesium Sulfate 50 ml @ 25 mls/hr 1X ONCE IV 12/07/20 17:00 12/07/20 18:59 DC 12/07/20 16:48 Insulin Human Regular 100 unit/ Sodium Chloride 101 ml @ 0 mls/hr CONT PRN IV SEE I/O RECORD 12/07/20 17:45 12/07/20 17:49 Daptomycin 290 mg/ Sodium Chloride 50 ml @ 100 mls/hr Q24H IV 12/08/20 10:00 12/08/20 09:34 Albumin Human 500 ml @ 125 mls/hr 1X ONCE IV 12/08/20 10:00 12/08/20 13:59 12/08/20 10:05 Justifications for Admission Other Justification HENRY MONTANEZ MD Dec 08, 2020 13:51
--- NOTE | 2020-12-08 16:41 | NUR ---
Versed turned off at 1344 to check neurological status. Starting at 1600, patient became more tachycardic and tachypneic, stacking breaths on the ventilator with increased peak pressures. Increased fentanyl gtt to hopefully avoid turning sedation back on. Patient remained tachycardic and tachypneic, started using accessory muscles to breathe, versed turned back on.
[2020-12-08] MEDS: ATORVASTATIN CALCIUM 20 MG TABLET PO SCH (21:36)
[2020-12-08] MEDS: GABAPENTIN 100 MG CAPSULE. PO SCH (21:36)
--- NOTE | 2020-12-08 23:00 | NUR ---
Patients UO has been minimal all day. Flushed edsai with 10cc NS and 325 returned immediately. Will continue to monitor output closely.
[2020-12-09] VITALS (28 sets, daily range): BP systolic 94–131; BP diastolic 41–61
[2020-12-09] MEDS: INSULIN GLARGINE SYRINGE. SQ SCH ×2 (00:39→20:46)
[2020-12-09] MEDS: INSULIN LISPRO 300 UNITS/3 ML VIAL. SQ SCH ×6 (04:00→20:17)
[2020-12-09 05:14] LABS: BASO % 0 % (0-3); EOS % 0 % (0-3); HEMATOCRIT 26.3 % (36.0-47.0); HEMOGLOBIN 8.7 g/dL (12.0-15.5); LYMPH # 0.4 x10^3/uL (1.0-4.8); LYMPH % 5 % (24-48); MEAN CORPUSCULAR HEMOGLOBIN 30 pg (25-35); MEAN CORPUSCULAR HGB CONC 33 g/dL (31-37); MEAN CORPUSCULAR VOLUME 90 fL (79-100); MONO # 0.3 x10^3/uL (0.0-1.1); MONO % 3 % (0-9); NEUT # 8.7 x10^3/uL (1.8-7.7); NEUT % 92 % (31-73); PLATELET COUNT 254 x10^3/uL (140-400); RED BLOOD COUNT 2.92 x10^6/uL (3.50-5.40); RED CELL DISTRIBUTION WIDTH 15.6 % (11.5-14.5); WHITE BLOOD COUNT 9.4 x10^3/uL (4.0-11.0)
[2020-12-09 05:26] LABS: CALCIUM 8.2 mg/dL (8.5-10.1); CREATININE 0.8 mg/dL (0.6-1.0); GFR 70.5; POTASSIUM 3.4 mmol/L (3.5-5.1)
[2020-12-09] MEDS: MEROPENEM 500 MG in IV NORMAL SALINE 50ML 50 ML IV SCH ×3 (05:53→22:08)
--- NOTE | 2020-12-09 07:51 | PDOC ---
Infectious Disease Note Subjective Subjective pt is intubated on vent ROS ROS no n/v/d/sob Vital Sign Vital Signs Vital Signs Date Time Temp Pulse Resp B/P (MAP) Pulse Ox O2 Delivery O2 Flow Rate FiO2 12/09/20 07:39 100 Ventilator 12/09/20 06:00 99 24 117/57 (77) 12/09/20 04:00 99.6 99.6 Physical Exam PHYSICAL EXAM GENERAL: Sedated, orally intubated female, not in distress. VITAL SIGNS: stable HEENT: Both pupils are round and reacting. No conjunctival lesion. Mouth cannot be visualized, orally intubated. NECK: Supple, no JVP, no lymphadenopathy. LUNGS: Clear. HEART: S1, S2 regular. ABDOMEN: Soft, nontender, no organomegaly. EXTREMITIES: No edema, cyanosis. SKIN: Unremarkable. NEUROLOGIC: The patient is sedated, orally intubated. No focal deficit can be appreciated right now. Labs Lab Laboratory Tests Test 12/08/20 08:00 12/08/20 11:26 12/08/20 15:58 12/08/20 20:12 O2 Saturation 98 % (92-99) Arterial Blood pH 7.40 (7.35-7.45) Arterial Blood pCO2 at Patient Temp 36 mmHg (35-46) Arterial Blood pO2 at Patient Temp 103 mmHg (65-108) Arterial Blood HCO3 22 mmol/L (21-28) Arterial Blood Base Excess -2 mmol/L (-3-3) FiO2 45 Glucose (Fingerstick) 126 mg/dL (70-99) 156 mg/dL (70-99) 95 mg/dL (70-99) Test 12/09/20 00:18 12/09/20 05:00 12/09/20 05:02 Glucose (Fingerstick) 108 mg/dL (70-99) 116 mg/dL (70-99) White Blood Count 9.4 x10^3/uL (4.0-11.0) Red Blood Count 2.92 x10^6/uL (3.50-5.40) Hemoglobin 8.7 g/dL (12.0-15.5) Hematocrit 26.3 % (36.0-47.0) Mean Corpuscular Volume 90 fL (79-100) Mean Corpuscular Hemoglobin 30 pg (25-35) Mean Corpuscular Hemoglobin Concent 33 g/dL (31-37) Red Cell Distribution Width 15.6 % (11.5-14.5) Platelet Count 254 x10^3/uL (140-400) Neutrophils (%) (Auto) 92 % (31-73) Lymphocytes (%) (Auto) 5 % (24-48) Monocytes (%) (Auto) 3 % (0-9) Eosinophils (%) (Auto) 0 % (0-3) Basophils (%) (Auto) 0 % (0-3) Neutrophils # (Auto) 8.7 x10^3/uL (1.8-7.7) Lymphocytes # (Auto) 0.4 x10^3/uL (1.0-4.8) Monocytes # (Auto) 0.3 x10^3/uL (0.0-1.1) Eosinophils # (Auto) 0.0 x10^3/uL (0.0-0.7) Basophils # (Auto) 0.0 x10^3/uL (0.0-0.2) Sodium Level 146 mmol/L (136-145) Potassium Level 3.4 mmol/L (3.5-5.1) Chloride Level 112 mmol/L (98-107) Carbon Dioxide Level 25 mmol/L (21-32) Anion Gap 9 (6-14) Blood Urea Nitrogen 19 mg/dL (7-20) Creatinine 0.8 mg/dL (0.6-1.0) Estimated GFR (Cockcroft-Gault) 70.5 Glucose Level 118 mg/dL (70-99) Calcium Level 8.2 mg/dL (8.5-10.1) Micro BC staph aureus Sputum Staph A Objective Assessment IMPRESSION: 1. Fever. 2. Leukocytosis. 3. Myocardial infarction, status post cardiac catheterization and angioplasty. 4. Respiratory failure. 5. Pulmonary edema versus pulmonary infection. 6. Diabetes. 7 Staph A bacteremia Plan Plan of Care cont antibiotics cont supportive care add OSWALD Mendoza MD Dec 09, 2020 07:51
[2020-12-09 08:39] LABS: BASE EXCESS ABG -3 mmol/L (-3-3); HCO3 ABG 22 mmol/L (21-28); PCO2 ABG 38 mmHg (35-46); PO2 ABG 101 mmHg (65-108); SAT O2 ABG 97 % (92-99)
[2020-12-09] MEDS: DULoxetine HCL 30 MG CAPSULE.DR PO SCH (09:00)
[2020-12-09 09:06] LABS: FIO2 ABG 45/VENT
--- NOTE | 2020-12-09 10:15 | NUR ---
SS following for discharge planning. SS reviewed pt chart and discussed with pt RN. Pt is from home and is currently on the vent at 35%. Pt is minimally reactive. Pt on IV Zyvox, IV Daptomycin, and IV Meropenem. Pt's family considering comfort measures. Physicians discussing goals of care with family. SS will continue to follow for discharge planning.
--- NOTE | 2020-12-09 10:40 | PDOC ---
ANISHA MONIQUE OSTEOLOGIST 12/09/20 1040: CARDIO Progress Notes Date and Time Date of Service 12/09/2020 Time of Evaluation 1020 Subjective Subjective: No Chest Pain, No shortness of breath, No Palpitations Vitals Vitals Vital Signs Date Time Temp Pulse Resp B/P (MAP) Pulse Ox O2 Delivery O2 Flow Rate FiO2 12/09/20 09:29 98 Ventilator 12/09/20 06:00 99 24 117/57 (77) 12/09/20 04:00 99.6 99.6 Weight Weight [ ] Input and Output Intake and Output Intake and Output 12/09/20 07:00 Intake Total 916 ml Output Total 852 ml Balance 64 ml Intake Oral 0 ml IV Total 916 ml Output Urine Total 852 ml Laboratory Labs Laboratory Tests Test 12/08/20 11:26 12/08/20 15:58 12/08/20 20:12 12/09/20 00:18 Glucose (Fingerstick) 126 mg/dL (70-99) 156 mg/dL (70-99) 95 mg/dL (70-99) 108 mg/dL (70-99) Test 12/09/20 05:00 12/09/20 05:02 12/09/20 07:45 White Blood Count 9.4 x10^3/uL (4.0-11.0) Red Blood Count 2.92 x10^6/uL (3.50-5.40) Hemoglobin 8.7 g/dL (12.0-15.5) Hematocrit 26.3 % (36.0-47.0) Mean Corpuscular Volume 90 fL (79-100) Mean Corpuscular Hemoglobin 30 pg (25-35) Mean Corpuscular Hemoglobin Concent 33 g/dL (31-37) Red Cell Distribution Width 15.6 % (11.5-14.5) Platelet Count 254 x10^3/uL (140-400) Neutrophils (%) (Auto) 92 % (31-73) Lymphocytes (%) (Auto) 5 % (24-48) Monocytes (%) (Auto) 3 % (0-9) Eosinophils (%) (Auto) 0 % (0-3) Basophils (%) (Auto) 0 % (0-3) Neutrophils # (Auto) 8.7 x10^3/uL (1.8-7.7) Lymphocytes # (Auto) 0.4 x10^3/uL (1.0-4.8) Monocytes # (Auto) 0.3 x10^3/uL (0.0-1.1) Eosinophils # (Auto) 0.0 x10^3/uL (0.0-0.7) Basophils # (Auto) 0.0 x10^3/uL (0.0-0.2) Sodium Level 146 mmol/L (136-145) Potassium Level 3.4 mmol/L (3.5-5.1) Chloride Level 112 mmol/L (98-107) Carbon Dioxide Level 25 mmol/L (21-32) Anion Gap 9 (6-14) Blood Urea Nitrogen 19 mg/dL (7-20) Creatinine 0.8 mg/dL (0.6-1.0) Estimated GFR (Cockcroft-Gault) 70.5 Glucose Level 118 mg/dL (70-99) Calcium Level 8.2 mg/dL (8.5-10.1) Glucose (Fingerstick) 116 mg/dL (70-99) O2 Saturation 97 % (92-99) Arterial Blood pH 7.37 (7.35-7.45) Arterial Blood pCO2 at Patient Temp 38 mmHg (35-46) Arterial Blood pO2 at Patient Temp 101 mmHg (65-108) Arterial Blood HCO3 22 mmol/L (21-28) Arterial Blood Base Excess -3 mmol/L (-3-3) FiO2 45/vent Microbiology Micro Microbiology 12/07/20 Gram Stain Evaluation - Final, Complete 12/07/20 Respiratory Culture - Final, Complete 12/07/20 Antimicrobic Susceptibility - Final, Complete 12/07/20 Blood Culture - Preliminary, Resulted NO GROWTH AFTER 1 DAY Physical Exam HEENT: Neck Supple W Full Motion Chest: Symmetric LUNGS: Other (diminished, intubated with vent) Heart: RRR (SR/ST) Abdomen: Soft N/T Extremities: Other (1+ bilateral Le pitting edema) Neurology: other (intubated) Assessment Assessment 1. Inferior STEMI: S/P PCI/SURYA to RCA with patent stents to LAD and LCx 2. HTN: controlled 3. Fever/sepsis: ID following 4. Acute respiratory failure with possible pneumonia 5. HLP 6. DM2 7. Encephalopathy: off sedation this morning Recommendations 1. Continue DAPT. Hold BP meds for now. Levophed is in place 2. Antibiotics per ID 3. TTE. Supportive care Justicifation of Admission Dx: Justifications for Admission: Justification of Admission Dx: N/A SUNNY BRISENO MD 12/09/20 1759: CARDIO Progress Notes Plan Plan The patient was seen and interviewed as well as examined at the bedside. The chart was reviewed. The case was discussed. Agree with the plan of care. Monitor for anemia at this time. Supportive care for now. Poor prognosis but we will await family input. Continue to hold sedation. Repeat chest x-ray tomorrow. ANISHA MONIQUE APRN Dec 09, 2020 10:40 SUNNY BRISENO MD Dec 09, 2020 17:59
--- NOTE | 2020-12-09 10:45 | PDOC ---
PULMONARY PROGRESS NOTES DATE: 12/09/20 TIME: 10:41 Subjective pt. remains on vent support no other concerns from nursing remains on low dose Levo gtt Vitals Vital Signs Date Time Temp Pulse Resp B/P (MAP) Pulse Ox O2 Delivery O2 Flow Rate FiO2 12/09/20 09:29 98 Ventilator 12/09/20 06:00 99 24 117/57 (77) 12/09/20 04:00 99.6 99.6 Comments sedated/ intubated Lungs: Other (Coarse throughout however no focal wheezing) Cardiovascular: S1, S2 Abdomen: Soft Extremities: No Edema Skin: Warm, Dry Labs Laboratory Tests Test 12/07/20 11:36 12/07/20 14:19 12/07/20 15:08 12/07/20 15:54 Glucose (Fingerstick) 297 mg/dL (70-99) 210 mg/dL (70-99) 144 mg/dL (70-99) 146 mg/dL (70-99) Test 12/07/20 15:55 12/07/20 17:14 12/07/20 18:12 12/07/20 19:54 Sodium Level 148 mmol/L (136-145) Potassium Level 3.9 mmol/L (3.5-5.1) Chloride Level 113 mmol/L (98-107) Carbon Dioxide Level 22 mmol/L (21-32) Anion Gap 13 (6-14) Blood Urea Nitrogen 21 mg/dL (7-20) Creatinine 1.7 mg/dL (0.6-1.0) Estimated GFR (Cockcroft-Gault) 29.5 Glucose Level 147 mg/dL (70-99) Calcium Level 8.2 mg/dL (8.5-10.1) Phosphorus Level 3.8 mg/dL (2.6-4.7) Magnesium Level 1.7 mg/dL (1.8-2.4) Glucose (Fingerstick) 119 mg/dL (70-99) 105 mg/dL (70-99) 131 mg/dL (70-99) Test 12/07/20 21:42 12/07/20 23:15 12/08/20 00:30 12/08/20 02:36 Glucose (Fingerstick) 166 mg/dL (70-99) 165 mg/dL (70-99) 146 mg/dL (70-99) 124 mg/dL (70-99) Test 12/08/20 05:08 12/08/20 05:10 12/08/20 08:00 12/08/20 11:26 Glucose (Fingerstick) 106 mg/dL (70-99) 126 mg/dL (70-99) White Blood Count 10.2 x10^3/uL (4.0-11.0) Red Blood Count 3.27 x10^6/uL (3.50-5.40) Hemoglobin 9.6 g/dL (12.0-15.5) Hematocrit 29.7 % (36.0-47.0) Mean Corpuscular Volume 91 fL (79-100) Mean Corpuscular Hemoglobin 30 pg (25-35) Mean Corpuscular Hemoglobin Concent 32 g/dL (31-37) Red Cell Distribution Width 15.8 % (11.5-14.5) Platelet Count 299 x10^3/uL (140-400) Neutrophils (%) (Auto) 91 % (31-73) Lymphocytes (%) (Auto) 5 % (24-48) Monocytes (%) (Auto) 4 % (0-9) Eosinophils (%) (Auto) 0 % (0-3) Basophils (%) (Auto) 0 % (0-3) Neutrophils # (Auto) 9.3 x10^3/uL (1.8-7.7) Lymphocytes # (Auto) 0.5 x10^3/uL (1.0-4.8) Monocytes # (Auto) 0.4 x10^3/uL (0.0-1.1) Eosinophils # (Auto) 0.0 x10^3/uL (0.0-0.7) Basophils # (Auto) 0.0 x10^3/uL (0.0-0.2) Sodium Level 145 mmol/L (136-145) Potassium Level 4.2 mmol/L (3.5-5.1) Chloride Level 113 mmol/L (98-107) Carbon Dioxide Level 22 mmol/L (21-32) Anion Gap 10 (6-14) Blood Urea Nitrogen 23 mg/dL (7-20) Creatinine 1.3 mg/dL (0.6-1.0) Estimated GFR (Cockcroft-Gault) 40.3 Glucose Level 114 mg/dL (70-99) Calcium Level 8.3 mg/dL (8.5-10.1) Magnesium Level 2.2 mg/dL (1.8-2.4) O2 Saturation 98 % (92-99) Arterial Blood pH 7.40 (7.35-7.45) Arterial Blood pCO2 at Patient Temp 36 mmHg (35-46) Arterial Blood pO2 at Patient Temp 103 mmHg (65-108) Arterial Blood HCO3 22 mmol/L (21-28) Arterial Blood Base Excess -2 mmol/L (-3-3) FiO2 45 Test 12/08/20 15:58 12/08/20 20:12 12/09/20 00:18 12/09/20 05:00 Glucose (Fingerstick) 156 mg/dL (70-99) 95 mg/dL (70-99) 108 mg/dL (70-99) White Blood Count 9.4 x10^3/uL (4.0-11.0) Red Blood Count 2.92 x10^6/uL (3.50-5.40) Hemoglobin 8.7 g/dL (12.0-15.5) Hematocrit 26.3 % (36.0-47.0) Mean Corpuscular Volume 90 fL (79-100) Mean Corpuscular Hemoglobin 30 pg (25-35) Mean Corpuscular Hemoglobin Concent 33 g/dL (31-37) Red Cell Distribution Width 15.6 % (11.5-14.5) Platelet Count 254 x10^3/uL (140-400) Neutrophils (%) (Auto) 92 % (31-73) Lymphocytes (%) (Auto) 5 % (24-48) Monocytes (%) (Auto) 3 % (0-9) Eosinophils (%) (Auto) 0 % (0-3) Basophils (%) (Auto) 0 % (0-3) Neutrophils # (Auto) 8.7 x10^3/uL (1.8-7.7) Lymphocytes # (Auto) 0.4 x10^3/uL (1.0-4.8) Monocytes # (Auto) 0.3 x10^3/uL (0.0-1.1) Eosinophils # (Auto) 0.0 x10^3/uL (0.0-0.7) Basophils # (Auto) 0.0 x10^3/uL (0.0-0.2) Sodium Level 146 mmol/L (136-145) Potassium Level 3.4 mmol/L (3.5-5.1) Chloride Level 112 mmol/L (98-107) Carbon Dioxide Level 25 mmol/L (21-32) Anion Gap 9 (6-14) Blood Urea Nitrogen 19 mg/dL (7-20) Creatinine 0.8 mg/dL (0.6-1.0) Estimated GFR (Cockcroft-Gault) 70.5 Glucose Level 118 mg/dL (70-99) Calcium Level 8.2 mg/dL (8.5-10.1) Test 12/09/20 05:02 12/09/20 07:45 Glucose (Fingerstick) 116 mg/dL (70-99) O2 Saturation 97 % (92-99) Arterial Blood pH 7.37 (7.35-7.45) Arterial Blood pCO2 at Patient Temp 38 mmHg (35-46) Arterial Blood pO2 at Patient Temp 101 mmHg (65-108) Arterial Blood HCO3 22 mmol/L (21-28) Arterial Blood Base Excess -3 mmol/L (-3-3) FiO2 45/vent Laboratory Tests Test 12/08/20 11:26 12/08/20 15:58 12/08/20 20:12 12/09/20 00:18 Glucose (Fingerstick) 126 mg/dL (70-99) 156 mg/dL (70-99) 95 mg/dL (70-99) 108 mg/dL (70-99) Test 12/09/20 05:00 12/09/20 05:02 12/09/20 07:45 White Blood Count 9.4 x10^3/uL (4.0-11.0) Red Blood Count 2.92 x10^6/uL (3.50-5.40) Hemoglobin 8.7 g/dL (12.0-15.5) Hematocrit 26.3 % (36.0-47.0) Mean Corpuscular Volume 90 fL (79-100) Mean Corpuscular Hemoglobin 30 pg (25-35) Mean Corpuscular Hemoglobin Concent 33 g/dL (31-37) Red Cell Distribution Width 15.6 % (11.5-14.5) Platelet Count 254 x10^3/uL (140-400) Neutrophils (%) (Auto) 92 % (31-73) Lymphocytes (%) (Auto) 5 % (24-48) Monocytes (%) (Auto) 3 % (0-9) Eosinophils (%) (Auto) 0 % (0-3) Basophils (%) (Auto) 0 % (0-3) Neutrophils # (Auto) 8.7 x10^3/uL (1.8-7.7) Lymphocytes # (Auto) 0.4 x10^3/uL (1.0-4.8) Monocytes # (Auto) 0.3 x10^3/uL (0.0-1.1) Eosinophils # (Auto) 0.0 x10^3/uL (0.0-0.7) Basophils # (Auto) 0.0 x10^3/uL (0.0-0.2) Sodium Level 146 mmol/L (136-145) Potassium Level 3.4 mmol/L (3.5-5.1) Chloride Level 112 mmol/L (98-107) Carbon Dioxide Level 25 mmol/L (21-32) Anion Gap 9 (6-14) Blood Urea Nitrogen 19 mg/dL (7-20) Creatinine 0.8 mg/dL (0.6-1.0) Estimated GFR (Cockcroft-Gault) 70.5 Glucose Level 118 mg/dL (70-99) Calcium Level 8.2 mg/dL (8.5-10.1) Glucose (Fingerstick) 116 mg/dL (70-99) O2 Saturation 97 % (92-99) Arterial Blood pH 7.37 (7.35-7.45) Arterial Blood pCO2 at Patient Temp 38 mmHg (35-46) Arterial Blood pO2 at Patient Temp 101 mmHg (65-108) Arterial Blood HCO3 22 mmol/L (21-28) Arterial Blood Base Excess -3 mmol/L (-3-3) FiO2 45/vent Medications Active Scripts Medications Dose Route/Sig Max Daily Dose Days Date Category Dose Instructions Reglan (Metoclopramide Hcl) 5 Mg Tablet 1 Tab PO QAM 12/05/20 Reported 1 hour prior to procedure Klor-Con 10 (Potassium Chloride) 10 Meq Tablet.er 1 Tab PO DAILY 30 12/05/20 Reported Pantoprazole Sodium (Pantoprazole Sodium) 40 Mg Tablet.dr 40 Mg PO DAILYAC 12/05/20 Reported Ondansetron Hcl 4 Mg Tablet 8 Mg PO BID PRN 12/05/20 Reported Midodrine Hcl 10 Mg Tablet 10 Mg PO TID 12/05/20 Reported Mirtazapine 15 Mg Tablet 15 Mg PO DAILY 12/05/20 Reported Metoprolol Tartrate 25 Mg Tablet 1 Tab PO QAM 12/05/20 Reported Lantus Solostar (Insulin Glargine,Hum.rec.anlog) 100 Unit/1 Ml Insuln.pen 10 Unit SQ QHS 12/05/20 Reported Gabapentin (Gabapentin) 300 Mg Capsule 300 Mg PO PRN QHS PRN 12/05/20 Reported Fludrocortisone Acetate 0.1 Mg Tablet 0.1 Mg PO QAM 12/05/20 Reported Cymbalta (Duloxetine Hcl) 30 Mg Capsule.dr 1 Cap PO DAILY 12/05/20 Reported Atorvastatin Calcium 40 Mg Tablet 1 Tab PO DAILY 12/05/20 Reported Aspirin 325 Mg Tablet 1 Tab PO DAILY 12/05/20 Reported Cipro (Ciprofloxacin Hcl) 250 Mg Tablet 1 Tab PO BID 7 12/05/20 Reported Carvedilol (Carvedilol) 3.125 Mg Tablet 1 Tab PO BID 08/25/17 Reported Gabapentin (Gabapentin) 100 Mg Capsule 100 Mg PO HS 08/25/17 Reported Reglan (Metoclopramide Hcl) 10 Mg Tablet 10 Mg PO QIDACHS PRN 08/25/17 Reported Pravachol (Pravastatin Sodium) 40 Mg Tablet 1 Tab PO HS 08/25/17 Reported Toprol Xl (Metoprolol Succinate) 25 Mg Tab.er.24h 0.5 Tab PO DAILY 08/25/17 Reported Lantus Solostar (Insulin Glargine,Hum.rec.anlog) 100 Unit/1 Ml Insuln.pen 18 Unit SQ QHS 12/02/16 Reported Impression . IMPRESSION: 1. Acute hypoxemic respiratory failure, multifactorial in etiology including aspiration pneumonia, acute systolic congestive heart failure, DKA, rule out cerebrovascular accident. 2. Abnormal chest x-ray, suspect secondary to aspiration pneumonia and acute systolic congestive heart failure. 3. Diabetic ketoacidosis--resolved 4. Encephalopathy question boyd etiology. 5. Acute inferior ST elevation myocardial infarction, status post percutaneous coronary intervention and stent placement. 6. Acute kidney injury--resolved 8. Hypotension, 9. Diabetes mellitus. Plan . Updated 12/09/20 Continue current vent support A/C mode 24/350/5/45% DC sedation to assess neurological function Follow CXR/ABG --reduce Fi02 to 35% Continue vasopressor to keep MAP above 65, Albumin PRN Follow Cardiology recs-- S/P PCI to RCA-- EF 45% Follow ID recs-- for ABX/ Fever, follow cultures-- MRSA on Resp. Culture now on zyvox DM I per PCP Tube feeding for nutritional support DVT/GI PPX D/W RN and RT Updated 12/08/20 Continue current vent support A/C mode 45% and PEEP of 7 proceed with reducing sedation to assess neurological function and ability to proceed with PS trial Follow CXR/ABG Continue vasopressor to keep MAP above 65, Albumin PRN Follow Cardiology recs-- S/P PCI to RCA-- EF 45% Follow ID recs-- for ABX/ Fever, follow cultures Staph. A on Resp. Culture DM I per PCP DVT/GI PPX D/W RN and RT PLAN AND RECOMMENDATIONS:12/07/20 1. Titrate FIO2 to keep O2 saturation 94%. 2. Continue ventilator support. ABG was reviewed. I increased her rate to 24. She has severe metabolic acidosis. Hopefully, will improve with treatment of DKA. 3. I do recommend nephrology consultation. 4. Cardiology is on the case. 5. ID is consulted. Change antibiotic from Zosyn to meropenem. 6. Sputum for Gram stain and culture, blood culture and urine culture. Follow up results. 7. Continue pressors to keep mean arterial pressure 65. 8. Echocardiogram per cardiology. 9. The findings and recommendations were discussed with RN and RT and ID. SALEEM WILDER MD Dec 09, 2020 10:45
[2020-12-09] MEDS: predniSONE 5 MG TABLET PO SCH (11:53)
[2020-12-09] MEDS: MIRTAZAPINE 15 MG TABLET PO SCH (11:53)
[2020-12-09] MEDS: ASPIRIN 325 MG TABLET PO SCH (11:55)
[2020-12-09] MEDS: DAPTOMYCIN IV SCH (12:16)
[2020-12-09] MEDS: NORMAL SALINE IV SCH (12:16)
[2020-12-09] MEDS: CLOPIDOGREL BISULFATE 75 MG TABLET PO SCH (12:31)
[2020-12-09] MEDS: MIDODRINE 5 MG TABLET PO SCH ×3 (12:33→18:00)
[2020-12-09] MEDS: PANTOPRAZOLE IV PUSH 40 MG VIAL. IVP SCH (12:53)
[2020-12-09] MEDS: FLUDROCORTISONE 0.1 MG TABLET PO SCH (12:53)
--- NOTE | 2020-12-09 15:09 | PDOC ---
[facility] PROGRESS NOTE Date of Service DOS: DATE: 12/09/20 TIME: 15:07 Chief Complaint Chief Complaint Acute myocardial infarction with status post cardiac cath and 2 stents placed to the RCA DKA Prior coronary disease with prior stents Diabetes History of cardiomyopathy Polypharmacy Hyperlipidemia CHF Hypertension Neuropathy GERD History of Present Illness History of Present Illness 12/09/2020 Patient seen and examined at bedside Remains intubated and sedated No major clinical changes overnight Concern for anoxic brain injury at this point We will begin goals of care discussion with family Plan of care discussed with bedside RN 12/08/2020 Patient seen and examined in the ICU Remains intubated and sedated Anion gap is improved insulin drip turned off Otherwise no major changes from previous day Continuing antibiotics Will wean ventilator as tolerated 12/07/2020 Patient seen and examined in the ICU She had to be intubated overnight Assist-control/24/350/50 percent with 5 of PEEP Anion gap slightly improved down to 21 I asked the nurse to resume the DKA protocol with the insulin drip She has mitts on for patient safety Sedated with fentanyl and Versed On IV Levophed as well She is critically ill Chart reviewed 12/06/2020 Patient seen and examined in the ICU She is obtunded Family is present (son and [id number]) Discussed the case at length with the family Chart reviewed Discussed with hat forming machine feeder explains that she is a frail diabetic She has slipped into DKA today Her pupils are still large but she apparently got atropine drops at the asbestos wire finisher yesterday Vitals/I&O Vitals/I&O: Vital Signs Date Time Temp Pulse Resp B/P (MAP) Pulse Ox O2 Delivery O2 Flow Rate FiO2 12/09/20 13:40 100 Ventilator 12/09/20 12:33 112 107/47 12/09/20 07:08 3.0 12/09/20 06:00 24 12/09/20 04:00 99.6 99.6 I & O 12/08/20 12/08/20 12/09/20 15:00 23:00 07:00 Intake Total 600 ml 161 ml 155 ml Output Total 85 ml 392 ml 375 ml Balance 515 ml -231 ml -220 ml Physical Exam Physical Exam: GENERAL: Sedated, orally intubated female, not in distress. VITAL SIGNS: stable HEENT: Both pupils are round and reacting. No conjunctival lesion. Mouth cannot be visualized, orally intubated. NECK: Supple, no JVP, no lymphadenopathy. LUNGS: Clear. HEART: S1, S2 regular. ABDOMEN: Soft, nontender, no organomegaly. EXTREMITIES: No edema, cyanosis. SKIN: Unremarkable. NEUROLOGIC: The patient is sedated, orally intubated. No focal deficit can be appreciated right now. General: Other (Intubated, sedated) Heart: Regular rate, Normal S1, Normal S2 Lungs: Other (Coarse throughout however no focal wheezing) Abdomen: Normal bowel sounds, Soft Extremities: No clubbing, No edema Skin: No rashes Labs Labs: Laboratory Tests Test 12/08/20 15:58 12/08/20 20:12 12/09/20 00:18 12/09/20 05:00 Glucose (Fingerstick) 156 mg/dL (70-99) 95 mg/dL (70-99) 108 mg/dL (70-99) White Blood Count 9.4 x10^3/uL (4.0-11.0) Red Blood Count 2.92 x10^6/uL (3.50-5.40) Hemoglobin 8.7 g/dL (12.0-15.5) Hematocrit 26.3 % (36.0-47.0) Mean Corpuscular Volume 90 fL (79-100) Mean Corpuscular Hemoglobin 30 pg (25-35) Mean Corpuscular Hemoglobin Concent 33 g/dL (31-37) Red Cell Distribution Width 15.6 % (11.5-14.5) Platelet Count 254 x10^3/uL (140-400) Neutrophils (%) (Auto) 92 % (31-73) Lymphocytes (%) (Auto) 5 % (24-48) Monocytes (%) (Auto) 3 % (0-9) Eosinophils (%) (Auto) 0 % (0-3) Basophils (%) (Auto) 0 % (0-3) Neutrophils # (Auto) 8.7 x10^3/uL (1.8-7.7) Lymphocytes # (Auto) 0.4 x10^3/uL (1.0-4.8) Monocytes # (Auto) 0.3 x10^3/uL (0.0-1.1) Eosinophils # (Auto) 0.0 x10^3/uL (0.0-0.7) Basophils # (Auto) 0.0 x10^3/uL (0.0-0.2) Sodium Level 146 mmol/L (136-145) Potassium Level 3.4 mmol/L (3.5-5.1) Chloride Level 112 mmol/L (98-107) Carbon Dioxide Level 25 mmol/L (21-32) Anion Gap 9 (6-14) Blood Urea Nitrogen 19 mg/dL (7-20) Creatinine 0.8 mg/dL (0.6-1.0) Estimated GFR (Cockcroft-Gault) 70.5 Glucose Level 118 mg/dL (70-99) Calcium Level 8.2 mg/dL (8.5-10.1) Test 12/09/20 05:02 12/09/20 07:45 12/09/20 12:20 Glucose (Fingerstick) 116 mg/dL (70-99) 100 mg/dL (70-99) O2 Saturation 97 % (92-99) Arterial Blood pH 7.37 (7.35-7.45) Arterial Blood pCO2 at Patient Temp 38 mmHg (35-46) Arterial Blood pO2 at Patient Temp 101 mmHg (65-108) Arterial Blood HCO3 22 mmol/L (21-28) Arterial Blood Base Excess -3 mmol/L (-3-3) FiO2 45/vent Assessment and Plan Assessmemt and Plan Problems Medical Problems: (1) DKA (diabetic ketoacidoses) Status: Acute Assessmemt and Plan Acute myocardial infarction with status post cardiac cath and 2 stents placed to the RCA Respiratory failure requiring mechanical ventilation DKA Prior coronary disease with prior stents Diabetes History of cardiomyopathy Polypharmacy Hyperlipidemia CHF Hypertension Neuropathy GERD Plan ICU monitoring No longer requiring insulin drip we will continue to closely monitor sugars Trend labs DVT prophylaxis Full code Guarded prognosis, she does not have much clinical change overnight we will start goals of care discussion with family Appreciate cardiology intervention Family at bedside updated on plan of care Comment Review of Relevant I have reviewed the following items boyd (where applicable) has been applied. Medications: Current Medications Medications (Trade) Dose Ordered Sig/Sandeep Route PRN Reason Start Time Stop Time Status Last Admin Dose Admin Linezolid/Dextrose 300 ml @ 300 mls/hr Q12HR IV 12/09/20 09:00 12/09/20 12:11 Justifications for Admission Other Justification HENRY MONTANEZ MD Dec 09, 2020 15:09
--- NOTE | 2020-12-09 16:49 | CARD ---
MR#: [id number] Date of Study: 12/09/2020 Ordering Physician: ANISHA MONIQUE, Referring Physician: ANISHA MONIQUE Tech: Frank Barnett [facility] APPROVED REPORT EXAM: Two-dimensional and M-mode echocardiogram with Doppler and color Doppler. Other Information Quality : FairHR: 115bpm Rhythm : Tachycardia INDICATION Cardiac Disease: CAD 2D DIMENSIONS Left Atrium(2D)3.4 (1.6-4.0cm)IVSd0.7 (0.7-1.1cm) Aortic Root(2D)2.8 (2.0-3.7cm)LVDd5.0 (3.9-5.9cm) LVOT Diameter1.8 (1.8-2.4cm)PWd0.7 (0.7-1.1cm) LVDs4.6 (2.5-4.0cm)FS (%) 8.6 % SV22.4 mlLVEF(%)18.9 (>50%) Aortic Valve AoV Peak Karthikeyan.168.8cm/sAoV VTI28.4cm AO Peak GR.11.4mmHgLVOT VTI 13.36cm AO Mean GR.6mmHg Mitral Valve MV E Wnvnonao760.8cm/sMV E Peak Gr.9mmHg MV DECEL [id number] A Tqufqifg488.1cm/s MV E Mean Gr.4mmHgE/A Ratio1.1 TDI Lateral E' P. V6.37cm/sMedial E' P. V4.70cm/s E/Lateral E'18.3E/Medial E'24.9 Tricuspid Valve TR P. [id number]/sTR Peak Gr.37mmHg LEFT VENTRICLE The left ventricle is normal size. There is normal left ventricular wall thickness. The ejection frac tion is moderately to severely impaired. EF 35% There is global hypokinesis of the left ventricle. Th e inferior wall is akinetic. Tissue Doppler imaging reveals moderate left ventricular diastolic dysfu nction. No left ventricle thrombus noted on this study. There is no ventricular septal defect visuali zed. There is no left ventricular aneurysm. There is no mass noted in the left ventricle. RIGHT VENTRICLE The right ventricle is normal size. There is normal right ventricular wall thickness. The right ventr icular systolic function is normal. ATRIA The left atrium is moderately dilated. The right atrium size is normal. The interatrial septum is int act with no evidence for an atrial septal defect or patent foramen ovale as noted on 2-D or Doppler i maging. AORTIC VALVE The aortic valve is mildly to moderately calcified. Doppler and Color Flow revealed no significant ao rtic regurgitation. There is no significant aortic valvular stenosis. There is no aortic valvular veg etation. MITRAL VALVE The mitral valve is normal in structure and function. There is no evidence of mitral valve prolapse. There is no mitral valve stenosis. Doppler and Color-flow revealed moderate mitral regurgitation. TRICUSPID VALVE The tricuspid valve is normal in structure and function. Doppler and Color Flow revealed mild tricusp id regurgitation. There is no tricuspid valve prolapse or vegetation. There is no tricuspid valve vernon nosis. PULMONIC VALVE Doppler and Color Flow revealed no pulmonic valvular regurgitation. There is no pulmonic valvular vernon nosis. GREAT VESSELS The aortic root is normal in size. The ascending aorta is normal in size. IVC is dilated and inspirat ory response is blunted. PERICARDIAL EFFUSION There is a moderate sized pleural effusion. There is no evidence of significant pericardial effusion. Critical Notification Critical Value: No <Conclusion> The ejection fraction is moderately to severely impaired. EF 35% There is global hypokinesis of the left ventricle. The inferior wall is akinetic. Doppler and Color-flow revealed moderate mitral regurgitation. Signed by : Ruben Keenan, Electronically Approved : 12/09/2020 16:49:26
--- NOTE | 2020-12-09 19:55 | NUR ---
Patient FSBS with Insulin sliding scale ordered Q4HRS and have been <120 for the past 24hrs. Patient to receive Lantus Insulin 20UNITS at 2100, Dr Miller paged. Dr Miller returned page notified of Lantus dose, FSBS, patient not receiving any nutrition at this time and RN's concern with BS dropping. Orders received to decreased Lantus to 10UNITS Subcutaneous QHS and consult dietary in am for Tube feeding; see orders, lab.
[2020-12-09] MEDS: ACETAMINOPHEN 325 MG SUPP.RECT. PR PRN (20:33)
[2020-12-09] MEDS: ATORVASTATIN CALCIUM 20 MG TABLET PO SCH (20:37)
[2020-12-09] MEDS: GABAPENTIN 100 MG CAPSULE. PO SCH (20:40)
[2020-12-10] VITALS (28 sets, daily range): BP systolic 79–119; BP diastolic 37–86
[2020-12-10] MEDS: INSULIN LISPRO 300 UNITS/3 ML VIAL. SQ SCH ×6 (00:13→20:12)
[2020-12-10] MEDS: MEROPENEM 500 MG in IV NORMAL SALINE 50ML 50 ML IV SCH ×3 (05:52→22:10)
[2020-12-10 06:27] LABS: CALCIUM 7.9 mg/dL (8.5-10.1); CREATININE 0.8 mg/dL (0.6-1.0); GFR 70.5; POTASSIUM 3.1 mmol/L (3.5-5.1)
--- NOTE | 2020-12-10 06:45 | NUR ---
IP: Pt is mrsa + in sputum requiring droplet/contact precautions.
[2020-12-10] MEDS: MIDODRINE 5 MG TABLET PO SCH ×3 (07:00→17:32)
[2020-12-10 07:44] LABS: BASE EXCESS ABG -2 mmol/L (-3-3); HCO3 ABG 21 mmol/L (21-28); PCO2 ABG 30 mmHg (35-46); PO2 ABG 84 mmHg (65-108); SAT O2 ABG 96 % (92-99)
--- NOTE | 2020-12-10 08:00 | PDOC ---
Infectious Disease Note Subjective Subjective pt is intubated on vent ROS ROS No nausea vomiting diarrhea fever Vital Sign Vital Signs Vital Signs Date Time Temp Pulse Resp B/P (MAP) Pulse Ox O2 Delivery O2 Flow Rate FiO2 12/10/20 07:33 100 Ventilator 12/10/20 07:00 102 24 119/56 (77) 12/10/20 04:00 99.0 99.0 12/09/20 07:08 3.0 Physical Exam PHYSICAL EXAM GENERAL: Sedated, orally intubated female, not in distress. VITAL SIGNS: stable HEENT: Both pupils are round and reacting. No conjunctival lesion. Mouth cannot be visualized, orally intubated. NECK: Supple, no JVP, no lymphadenopathy. LUNGS: Clear. HEART: S1, S2 regular. ABDOMEN: Soft, nontender, no organomegaly. EXTREMITIES: No edema, cyanosis. SKIN: Unremarkable. NEUROLOGIC: The patient is sedated, orally intubated. No focal deficit can be appreciated right now. Labs Lab Laboratory Tests Test 12/09/20 12:20 12/09/20 20:15 12/10/20 00:10 12/10/20 04:16 Glucose (Fingerstick) 100 mg/dL (70-99) 160 mg/dL (70-99) 175 mg/dL (70-99) 168 mg/dL (70-99) Test 12/10/20 05:50 Sodium Level 147 mmol/L (136-145) Potassium Level 3.1 mmol/L (3.5-5.1) Chloride Level 111 mmol/L (98-107) Carbon Dioxide Level 26 mmol/L (21-32) Anion Gap 10 (6-14) Blood Urea Nitrogen 15 mg/dL (7-20) Creatinine 0.8 mg/dL (0.6-1.0) Estimated GFR (Cockcroft-Gault) 70.5 Glucose Level 170 mg/dL (70-99) Calcium Level 7.9 mg/dL (8.5-10.1) Micro BC staph aureus MRSA Sputum Staph A MRSA Objective Assessment IMPRESSION: 1. Fever. 2. Leukocytosis. 3. Myocardial infarction, status post cardiac catheterization and angioplasty. 4. Respiratory failure. 5. Pulmonary edema versus pulmonary infection. 6. Diabetes. 7 Staph A bacteremia MRSA Plan Plan of Care cont antibiotics cont supportive care zyvox Dapto and meropenem OSWALD DEL RIO MD Dec 10, 2020 08:00
[2020-12-10 08:48] LABS: FIO2 ABG 35/VENT
[2020-12-10] MEDS: FLUDROCORTISONE 0.1 MG TABLET PO SCH (09:00)
[2020-12-10] MEDS: NORMAL SALINE IV SCH (10:00)
[2020-12-10] MEDS: DAPTOMYCIN IV SCH (10:00)
--- NOTE | 2020-12-10 10:27 | PDOC ---
[employer] PROGRESS NOTE Date of Service DOS: DATE: 12/10/20 TIME: 10:22 Chief Complaint Chief Complaint Acute myocardial infarction with status post cardiac cath and 2 stents placed to the RCA DKA Prior coronary disease with prior stents Diabetes History of cardiomyopathy Polypharmacy Hyperlipidemia CHF Hypertension Neuropathy GERD History of Present Illness History of Present Illness 12/10/2020 Patient seen and examined at bedside Rajat intubated at this point Overall no major clinical changes MRSA positive Son at bedside and discussed with him plan of care; he reported to me that patient had a similar episode approximately [address] [facility] where she was intubated for approximately a week and was able to be extubated and returned to normal life. Did inform him that the current situation with the STEMI it is unlikely that that would happen again however patient's family would like a time-limited trial for a few more days before beginning discussing withdrawal of care. Plan of care discussed with bedside nurse 12/09/2020 Patient seen and examined at bedside Remains intubated and sedated No major clinical changes overnight Concern for anoxic brain injury at this point We will begin goals of care discussion with family Plan of care discussed with bedside RN 12/08/2020 Patient seen and examined in the ICU Remains intubated and sedated Anion gap is improved insulin drip turned off Otherwise no major changes from previous day Continuing antibiotics Will wean ventilator as tolerated 12/07/2020 Patient seen and examined in the ICU She had to be intubated overnight Assist-control/24/350/50 percent with 5 of PEEP Anion gap slightly improved down to 21 I asked the nurse to resume the DKA protocol with the insulin drip She has mitts on for patient safety Sedated with fentanyl and Versed On IV Levophed as well She is critically ill Chart reviewed 12/06/2020 Patient seen and examined in the ICU She is obtunded Family is present (son and [id number]) Discussed the case at length with the family Chart reviewed Discussed with engine test cell technician explains that she is a frail diabetic She has slipped into DKA today Her pupils are still large but she apparently got atropine drops at the bleach boiler filler yesterday Vitals/I&O Vitals/I&O: Vital Signs Date Time Temp Pulse Resp B/P (MAP) Pulse Ox O2 Delivery O2 Flow Rate FiO2 12/10/20 09:12 100 Ventilator 12/10/20 07:00 102 24 119/56 (77) 12/10/20 04:00 99.0 99.0 12/09/20 07:08 3.0 I & O 12/09/20 12/09/20 12/10/20 15:00 23:00 07:00 Intake Total 350 ml 470 ml 19 ml Output Total 525 ml 575 ml 220 ml Balance -175 ml -105 ml -201 ml Physical Exam Physical Exam: GENERAL: Sedated, orally intubated female, not in distress. VITAL SIGNS: stable HEENT: Both pupils are round and reacting. No conjunctival lesion. Mouth cannot be visualized, orally intubated. NECK: Supple, no JVP, no lymphadenopathy. LUNGS: Clear. HEART: S1, S2 regular. ABDOMEN: Soft, nontender, no organomegaly. EXTREMITIES: No edema, cyanosis. SKIN: Unremarkable. NEUROLOGIC: The patient is sedated, orally intubated. No focal deficit can be appreciated right now. General: Other (Intubated, sedated) Heart: Regular rate, Normal S1, Normal S2 Lungs: Clear (CTABL) Abdomen: Normal bowel sounds, Soft Extremities: No clubbing, No edema Skin: No rashes Labs Labs: Laboratory Tests Test 12/09/20 12:20 12/09/20 20:15 12/10/20 00:10 12/10/20 04:16 Glucose (Fingerstick) 100 mg/dL (70-99) 160 mg/dL (70-99) 175 mg/dL (70-99) 168 mg/dL (70-99) Test 12/10/20 05:50 12/10/20 07:30 Sodium Level 147 mmol/L (136-145) Potassium Level 3.1 mmol/L (3.5-5.1) Chloride Level 111 mmol/L (98-107) Carbon Dioxide Level 26 mmol/L (21-32) Anion Gap 10 (6-14) Blood Urea Nitrogen 15 mg/dL (7-20) Creatinine 0.8 mg/dL (0.6-1.0) Estimated GFR (Cockcroft-Gault) 70.5 Glucose Level 170 mg/dL (70-99) Calcium Level 7.9 mg/dL (8.5-10.1) O2 Saturation 96 % (92-99) Arterial Blood pH 7.48 (7.35-7.45) Arterial Blood pCO2 at Patient Temp 30 mmHg (35-46) Arterial Blood pO2 at Patient Temp 84 mmHg (65-108) Arterial Blood HCO3 21 mmol/L (21-28) Arterial Blood Base Excess -2 mmol/L (-3-3) FiO2 35/vent Review of Systems Review of Systems: Unable to obtain due to sedation and intubation Assessment and Plan Assessmemt and Plan Assessmemt and Plan Acute myocardial infarction with status post cardiac cath and 2 stents placed to the RCA Respiratory failure requiring mechanical ventilation DKA Prior coronary disease with prior stents Diabetes History of cardiomyopathy Polypharmacy Hyperlipidemia CHF Hypertension Neuropathy GERD MRSA positive culture Plan ICU monitoring No longer requiring insulin drip we will continue to closely monitor sugars Trend labs DVT prophylaxis Full code Guarded prognosis, she does not have much clinical change overnight started discussing comfort measures with family however they would like a time-limited trial due to reasons as documented above Appreciate cardiology intervention Family at bedside updated on plan of care Problems: (1) Respiratory failure requiring intubation (2) MRSA (methicillin resistant staph aureus) culture positive (3) STEMI (ST elevation myocardial infarction) (4) DKA (diabetic ketoacidoses) Comment Review of Relevant I have reviewed the following items boyd (where applicable) has been applied. Medications: Current Medications Medications (Trade) Dose Ordered Sig/Sandeep Route PRN Reason Start Time Stop Time Status Last Admin Dose Admin Insulin Glargine (Lantus Syringe) 10 unit QHS SQ 12/09/20 21:00 12/09/20 20:46 Justifications for Admission Other Justification HENRY MONTANEZ MD Dec 10, 2020 10:27
--- NOTE | 2020-12-10 10:42 | PDOC ---
PULMONARY PROGRESS NOTES DATE: 12/10/20 TIME: 10:40 Subjective pt. remains on vent support no other concerns from nursing remains on low dose Levo gtt off sedation, not responsive Vitals Vital Signs Date Time Temp Pulse Resp B/P (MAP) Pulse Ox O2 Delivery O2 Flow Rate FiO2 12/10/20 09:12 100 Ventilator 12/10/20 07:00 102 24 119/56 (77) 12/10/20 04:00 99.0 99.0 12/09/20 07:08 3.0 Comments intubated Lungs: Clear (CTABL) Cardiovascular: S1, S2 Abdomen: Soft Extremities: No Edema Skin: Warm, Dry Labs Laboratory Tests Test 12/08/20 11:26 12/08/20 15:58 12/08/20 20:12 12/09/20 00:18 Glucose (Fingerstick) 126 mg/dL (70-99) 156 mg/dL (70-99) 95 mg/dL (70-99) 108 mg/dL (70-99) Test 12/09/20 05:00 12/09/20 05:02 12/09/20 07:45 12/09/20 12:20 White Blood Count 9.4 x10^3/uL (4.0-11.0) Red Blood Count 2.92 x10^6/uL (3.50-5.40) Hemoglobin 8.7 g/dL (12.0-15.5) Hematocrit 26.3 % (36.0-47.0) Mean Corpuscular Volume 90 fL (79-100) Mean Corpuscular Hemoglobin 30 pg (25-35) Mean Corpuscular Hemoglobin Concent 33 g/dL (31-37) Red Cell Distribution Width 15.6 % (11.5-14.5) Platelet Count 254 x10^3/uL (140-400) Neutrophils (%) (Auto) 92 % (31-73) Lymphocytes (%) (Auto) 5 % (24-48) Monocytes (%) (Auto) 3 % (0-9) Eosinophils (%) (Auto) 0 % (0-3) Basophils (%) (Auto) 0 % (0-3) Neutrophils # (Auto) 8.7 x10^3/uL (1.8-7.7) Lymphocytes # (Auto) 0.4 x10^3/uL (1.0-4.8) Monocytes # (Auto) 0.3 x10^3/uL (0.0-1.1) Eosinophils # (Auto) 0.0 x10^3/uL (0.0-0.7) Basophils # (Auto) 0.0 x10^3/uL (0.0-0.2) Sodium Level 146 mmol/L (136-145) Potassium Level 3.4 mmol/L (3.5-5.1) Chloride Level 112 mmol/L (98-107) Carbon Dioxide Level 25 mmol/L (21-32) Anion Gap 9 (6-14) Blood Urea Nitrogen 19 mg/dL (7-20) Creatinine 0.8 mg/dL (0.6-1.0) Estimated GFR (Cockcroft-Gault) 70.5 Glucose Level 118 mg/dL (70-99) Calcium Level 8.2 mg/dL (8.5-10.1) Glucose (Fingerstick) 116 mg/dL (70-99) 100 mg/dL (70-99) O2 Saturation 97 % (92-99) Arterial Blood pH 7.37 (7.35-7.45) Arterial Blood pCO2 at Patient Temp 38 mmHg (35-46) Arterial Blood pO2 at Patient Temp 101 mmHg (65-108) Arterial Blood HCO3 22 mmol/L (21-28) Arterial Blood Base Excess -3 mmol/L (-3-3) FiO2 45/vent Test 12/09/20 20:15 12/10/20 00:10 12/10/20 04:16 12/10/20 05:50 Glucose (Fingerstick) 160 mg/dL (70-99) 175 mg/dL (70-99) 168 mg/dL (70-99) Sodium Level 147 mmol/L (136-145) Potassium Level 3.1 mmol/L (3.5-5.1) Chloride Level 111 mmol/L (98-107) Carbon Dioxide Level 26 mmol/L (21-32) Anion Gap 10 (6-14) Blood Urea Nitrogen 15 mg/dL (7-20) Creatinine 0.8 mg/dL (0.6-1.0) Estimated GFR (Cockcroft-Gault) 70.5 Glucose Level 170 mg/dL (70-99) Calcium Level 7.9 mg/dL (8.5-10.1) Test 12/10/20 07:30 O2 Saturation 96 % (92-99) Arterial Blood pH 7.48 (7.35-7.45) Arterial Blood pCO2 at Patient Temp 30 mmHg (35-46) Arterial Blood pO2 at Patient Temp 84 mmHg (65-108) Arterial Blood HCO3 21 mmol/L (21-28) Arterial Blood Base Excess -2 mmol/L (-3-3) FiO2 35/vent Laboratory Tests Test 12/09/20 12:20 12/09/20 20:15 12/10/20 00:10 12/10/20 04:16 Glucose (Fingerstick) 100 mg/dL (70-99) 160 mg/dL (70-99) 175 mg/dL (70-99) 168 mg/dL (70-99) Test 12/10/20 05:50 12/10/20 07:30 Sodium Level 147 mmol/L (136-145) Potassium Level 3.1 mmol/L (3.5-5.1) Chloride Level 111 mmol/L (98-107) Carbon Dioxide Level 26 mmol/L (21-32) Anion Gap 10 (6-14) Blood Urea Nitrogen 15 mg/dL (7-20) Creatinine 0.8 mg/dL (0.6-1.0) Estimated GFR (Cockcroft-Gault) 70.5 Glucose Level 170 mg/dL (70-99) Calcium Level 7.9 mg/dL (8.5-10.1) O2 Saturation 96 % (92-99) Arterial Blood pH 7.48 (7.35-7.45) Arterial Blood pCO2 at Patient Temp 30 mmHg (35-46) Arterial Blood pO2 at Patient Temp 84 mmHg (65-108) Arterial Blood HCO3 21 mmol/L (21-28) Arterial Blood Base Excess -2 mmol/L (-3-3) FiO2 35/vent Medications Active Scripts Medications Dose Route/Sig Max Daily Dose Days Date Category Dose Instructions Reglan (Metoclopramide Hcl) 5 Mg Tablet 1 Tab PO QAM 12/05/20 Reported 1 hour prior to procedure Klor-Con 10 (Potassium Chloride) 10 Meq Tablet.er 1 Tab PO DAILY 30 12/05/20 Reported Pantoprazole Sodium (Pantoprazole Sodium) 40 Mg Tablet.dr 40 Mg PO DAILYAC 12/05/20 Reported Ondansetron Hcl 4 Mg Tablet 8 Mg PO BID PRN 12/05/20 Reported Midodrine Hcl 10 Mg Tablet 10 Mg PO TID 12/05/20 Reported Mirtazapine 15 Mg Tablet 15 Mg PO DAILY 12/05/20 Reported Metoprolol Tartrate 25 Mg Tablet 1 Tab PO QAM 12/05/20 Reported Lantus Solostar (Insulin Glargine,Hum.rec.anlog) 100 Unit/1 Ml Insuln.pen 10 Unit SQ QHS 12/05/20 Reported Gabapentin (Gabapentin) 300 Mg Capsule 300 Mg PO PRN QHS PRN 12/05/20 Reported Fludrocortisone Acetate 0.1 Mg Tablet 0.1 Mg PO QAM 12/05/20 Reported Cymbalta (Duloxetine Hcl) 30 Mg Capsule.dr 1 Cap PO DAILY 12/05/20 Reported Atorvastatin Calcium 40 Mg Tablet 1 Tab PO DAILY 12/05/20 Reported Aspirin 325 Mg Tablet 1 Tab PO DAILY 12/05/20 Reported Cipro (Ciprofloxacin Hcl) 250 Mg Tablet 1 Tab PO BID 7 12/05/20 Reported Carvedilol (Carvedilol) 3.125 Mg Tablet 1 Tab PO BID 08/25/17 Reported Gabapentin (Gabapentin) 100 Mg Capsule 100 Mg PO HS 08/25/17 Reported Reglan (Metoclopramide Hcl) 10 Mg Tablet 10 Mg PO QIDACHS PRN 08/25/17 Reported Pravachol (Pravastatin Sodium) 40 Mg Tablet 1 Tab PO HS 08/25/17 Reported Toprol Xl (Metoprolol Succinate) 25 Mg Tab.er.24h 0.5 Tab PO DAILY 08/25/17 Reported Lantus Solostar (Insulin Glargine,Hum.rec.anlog) 100 Unit/1 Ml Insuln.pen 18 Unit SQ QHS 12/02/16 Reported Impression . IMPRESSION: 1. Acute hypoxemic respiratory failure, multifactorial in etiology including aspiration pneumonia, acute systolic congestive heart failure, DKA, rule out cerebrovascular accident. 2. Abnormal chest x-ray, suspect secondary to aspiration pneumonia and acute systolic congestive heart failure. 3. Diabetic ketoacidosis--resolved 4. Encephalopathy question boyd etiology. 5. Acute inferior ST elevation myocardial infarction, status post percutaneous coronary intervention and stent placement. 6. Acute kidney injury--resolved 8. Hypotension, 9. Diabetes mellitus. Plan . Updated 12/10/20 Continue current vent support A/C mode 24/350/5/45% reduce rate today off sedation to assess neurological function , likely sedation induced encephalopathy Follow CXR/ABG --reduce Fi02 to 35% Continue vasopressor to keep MAP above 65, Albumin PRN Follow Cardiology recs-- S/P PCI to RCA-- EF 45% Follow ID recs-- for ABX/ Fever, follow cultures-- MRSA on Resp. Culture now on zyvox DM I per PCP Tube feeding for nutritional support DVT/GI PPX D/W RN and RT d/w son in detail Updated 12/09/20 Continue current vent support A/C mode 24/350/5/45% DC sedation to assess neurological function Follow CXR/ABG --reduce Fi02 to 35% Continue vasopressor to keep MAP above 65, Albumin PRN Follow Cardiology recs-- S/P PCI to RCA-- EF 45% Follow ID recs-- for ABX/ Fever, follow cultures-- MRSA on Resp. Culture now on zyvox DM I per PCP Tube feeding for nutritional support DVT/GI PPX D/W RN and RT Updated 12/08/20 Continue current vent support A/C mode 45% and PEEP of 7 proceed with reducing sedation to assess neurological function and ability to proceed with PS trial Follow CXR/ABG Continue vasopressor to keep MAP above 65, Albumin PRN Follow Cardiology recs-- S/P PCI to RCA-- EF 45% Follow ID recs-- for ABX/ Fever, follow cultures Staph. A on Resp. Culture DM I per PCP DVT/GI PPX D/W RN and RT PLAN AND RECOMMENDATIONS:12/07/20 1. Titrate FIO2 to keep O2 saturation 94%. 2. Continue ventilator support. ABG was reviewed. I increased her rate to 24. She has severe metabolic acidosis. Hopefully, will improve with treatment of DKA. 3. I do recommend nephrology consultation. 4. Cardiology is on the case. 5. ID is consulted. Change antibiotic from Zosyn to meropenem. 6. Sputum for Gram stain and culture, blood culture and urine culture. Follow up results. 7. Continue pressors to keep mean arterial pressure 65. 8. Echocardiogram per cardiology. 9. The findings and recommendations were discussed with RN and RT and ID. SALEEM WILDER MD Dec 10, 2020 10:42
--- NOTE | 2020-12-10 11:24 | PDOC ---
JERRY DIAZ BLEACHER [employer]RAFT PULP 12/10/20 1124: CARDIO Progress Notes Date and Time Date of Service 12/10/20 Time of Evaluation 1120 Subjective Subjective: Other (not responsive ) Vitals Vitals Vital Signs Date Time Temp Pulse Resp B/P (MAP) Pulse Ox O2 Delivery O2 Flow Rate FiO2 12/10/20 09:12 100 Ventilator 12/10/20 07:00 102 24 119/56 (77) 12/10/20 04:00 99.0 99.0 12/09/20 07:08 3.0 Weight Weight [ ] Input and Output Intake and Output Intake and Output 12/10/20 07:00 Intake Total 839 ml Output Total 1320 ml Balance -481 ml Intake Oral 120 ml IV Total 719 ml Output Urine Total 1320 ml Laboratory Labs Laboratory Tests Test 12/09/20 12:20 12/09/20 20:15 12/10/20 00:10 12/10/20 04:16 Glucose (Fingerstick) 100 mg/dL (70-99) 160 mg/dL (70-99) 175 mg/dL (70-99) 168 mg/dL (70-99) Test 12/10/20 05:50 12/10/20 07:30 Sodium Level 147 mmol/L (136-145) Potassium Level 3.1 mmol/L (3.5-5.1) Chloride Level 111 mmol/L (98-107) Carbon Dioxide Level 26 mmol/L (21-32) Anion Gap 10 (6-14) Blood Urea Nitrogen 15 mg/dL (7-20) Creatinine 0.8 mg/dL (0.6-1.0) Estimated GFR (Cockcroft-Gault) 70.5 Glucose Level 170 mg/dL (70-99) Calcium Level 7.9 mg/dL (8.5-10.1) O2 Saturation 96 % (92-99) Arterial Blood pH 7.48 (7.35-7.45) Arterial Blood pCO2 at Patient Temp 30 mmHg (35-46) Arterial Blood pO2 at Patient Temp 84 mmHg (65-108) Arterial Blood HCO3 21 mmol/L (21-28) Arterial Blood Base Excess -2 mmol/L (-3-3) FiO2 35/vent Microbiology Micro Microbiology 12/07/20 Gram Stain Evaluation - Final, Complete 12/07/20 Respiratory Culture - Final, Complete 12/07/20 Antimicrobic Susceptibility - Final, Complete 12/07/20 Blood Culture - Preliminary, Resulted NO GROWTH AFTER 3 DAYS Physical Exam HEENT: Neck Supple W Full Motion Chest: Symmetric LUNGS: Other (diminished, intubated with vent) Heart: RRR (SR/ST), other (distant heart tones ) Abdomen: Soft N/T Extremities: Other (trace bilateral LE edema) Neurology: other (intubated, off sedation- not responsive ) Assessment Assessment 1. Inferior STEMI: S/P PCI/SURYA to RCA with patent stents to LAD and LCx 2. Chronic systolic CHF with Ischemic cardiomyopathy; Echo showed LVEF 35% with global hypokinesis of the LV. The inferior wall is akinetic. 3. HTN; presently hypotensive requiring pressor support 4. Fever/sepsis: ID following 5. Acute respiratory failure with possible pneumonia; s/p intubation 6. HLP 7. DM2 8 Encephalopathy: off sedation, remains unresponsive 9. Mitral regurgitation; moderate 10. Hypokalemia; replacement ordered Recommendations Secondary prevention including DAPT with ASA/Plavix Statin therapy No BB or ACEi/ARB with hypotension Ongoing antibiotics therapy, treatment of sepsis Await neuro recovery Justicifation of Admission Dx: Justifications for Admission: Justification of Admission Dx: N/A SUNNY BRISENO MD 12/10/20 1835: CARDIO Progress Notes Plan Plan Pt. seen and examined. Agree with above METAL GRINDER Note. Supportive care. JERRY DIAZ APRN Dec 10, 2020 11:24 SUNNY BRISENO MD Dec 10, 2020 18:35
[2020-12-10] MEDS: CLOPIDOGREL BISULFATE 75 MG TABLET PO SCH (11:32)
[2020-12-10] MEDS: DULoxetine HCL 30 MG CAPSULE.DR PO SCH (11:32)
[2020-12-10] MEDS: ASPIRIN 325 MG TABLET PO SCH (11:32)
[2020-12-10] MEDS: MIRTAZAPINE 15 MG TABLET PO SCH (11:33)
[2020-12-10] MEDS: predniSONE 5 MG TABLET PO SCH (11:33)
[2020-12-10] MEDS: PANTOPRAZOLE IV PUSH 40 MG VIAL. IVP SCH (11:36)
[2020-12-10] MEDS: POTASSIUM CHLORIDE 10MEQ 100 ML IV SCH ×4 (12:00→17:32)
--- NOTE | 2020-12-10 15:49 | NUR ---
SS following up with discharge planning. SS reviewed pt chart and discussed with pt RN. Pt is currently on the vent at 35%. Pt on IV Zyvox, IV Daptomycin, and IV Meropenem. Full Code. Pt on low dose Levophed. Pt's family wanting full care at this time. Pt starting tube feeding today. SS will continue to follow for discharge planning.
[2020-12-10] MEDS: GABAPENTIN 100 MG CAPSULE. PO SCH (20:41)
[2020-12-10] MEDS: INSULIN GLARGINE SYRINGE. SQ SCH (20:42)
[2020-12-10] MEDS: ATORVASTATIN CALCIUM 20 MG TABLET PO SCH (20:43)
[2020-12-11] VITALS (25 sets, daily range): BP systolic 89–148; BP diastolic 38–61
[2020-12-11] MEDS: INSULIN LISPRO 300 UNITS/3 ML VIAL. SQ SCH ×8 (00:24→20:11)
[2020-12-11] MEDS: NOREPINEPHRINE VIAL 8 MG in IV DEXTROSE 5% 250 ML IV PRN (01:52)
[2020-12-11] MEDS: MEROPENEM 500 MG in IV NORMAL SALINE 50ML 50 ML IV SCH ×3 (06:27→22:17)
[2020-12-11] MEDS: MIDODRINE 5 MG TABLET PO SCH ×3 (07:00→18:00)
--- NOTE | 2020-12-11 07:49 | PDOC ---
Infectious Disease Note Subjective Subjective pt is intubated on vent ROS ROS no n/v/d/fever Vital Sign Vital Signs Vital Signs Date Time Temp Pulse Resp B/P (MAP) Pulse Ox O2 Delivery O2 Flow Rate FiO2 12/11/20 07:00 116 20 114/59 (77) 99 Ventilator 12/11/20 04:00 97.6 97.6 Physical Exam PHYSICAL EXAM GENERAL: Sedated, orally intubated female, not in distress. VITAL SIGNS: stable HEENT: Both pupils are round and reacting. No conjunctival lesion. Mouth cannot be visualized, orally intubated. NECK: Supple, no JVP, no lymphadenopathy. LUNGS: Clear. HEART: S1, S2 regular. ABDOMEN: Soft, nontender, no organomegaly. EXTREMITIES: No edema, cyanosis. SKIN: Unremarkable. NEUROLOGIC: The patient is sedated, orally intubated. No focal deficit can be appreciated right now. Labs Lab Laboratory Tests Test 12/10/20 13:27 12/10/20 20:09 12/11/20 00:22 12/11/20 05:18 Glucose (Fingerstick) 179 mg/dL (70-99) 178 mg/dL (70-99) 251 mg/dL (70-99) 268 mg/dL (70-99) Test 12/11/20 05:20 Creatine Kinase 212 U/L (26-192) Micro BC staph aureus MRSA Sputum Staph A MRSA Objective Assessment IMPRESSION: 1. Fever. 2. Leukocytosis. 3. Myocardial infarction, status post cardiac catheterization and angioplasty. 4. Respiratory failure. 5. Pulmonary edema versus pulmonary infection. 6. Diabetes. 7 Staph A bacteremia MRSA 12/07 Plan Plan of Care cont antibiotics cont supportive care zyvox Dapto and meropenem OSWALD DEL RIO MD Dec 11, 2020 07:49
[2020-12-11 08:31] LABS: BASE EXCESS ABG 0 mmol/L (-3-3); HCO3 ABG 23 mmol/L (21-28); PCO2 ABG 33 mmHg (35-46); PO2 ABG 80 mmHg (65-108); SAT O2 ABG 96 % (92-99)
[2020-12-11] MEDS: PANTOPRAZOLE IV PUSH 40 MG VIAL. IVP SCH (08:40)
[2020-12-11] MEDS: ASPIRIN 325 MG TABLET PO SCH (08:41)
[2020-12-11] MEDS: CLOPIDOGREL BISULFATE 75 MG TABLET PO SCH (08:41)
[2020-12-11] MEDS: MIRTAZAPINE 15 MG TABLET PO SCH (08:41)
[2020-12-11] MEDS: predniSONE 5 MG TABLET PO SCH (08:41)
[2020-12-11] MEDS: FLUDROCORTISONE 0.1 MG TABLET PO SCH (08:41)
[2020-12-11] MEDS: DULoxetine HCL 30 MG CAPSULE.DR PO SCH (08:41)
[2020-12-11 08:56] LABS: FIO2 ABG 35%+5
--- NOTE | 2020-12-11 09:21 | RAD ---
XR CHEST 1V History: Reason: RESPIRATORY FAILURE / Spl. Instructions: / History: Comparison: December 07, 2020 Findings: Decreased right upper lung opacities. No pleural effusion. No pneumothorax. Unchanged heart size. Sta ble endotracheal tube just above the betty, enteric tube and right IJ central line. Displaced left p roximal humerus fracture, unchanged alignment. Impression: 1. Decreased right upper lung opacities. 2. Unchanged endotracheal tube just above the betty. Recommend correlation for desired positioning. Electronically signed by: Elmer Romero DO (12/11/2020 9:18 AM) [id number]
--- NOTE | 2020-12-11 09:38 | PDOC ---
ANISHA MONIQUE B[employer] LADLE TENDER 12/11/20 0938: CARDIO Progress Notes Date and Time Date of Service 12/11/2020 Time of Evaluation 0915 Subjective Subjective: Other (not responsive ) Vitals Vitals Vital Signs Date Time Temp Pulse Resp B/P (MAP) Pulse Ox O2 Delivery O2 Flow Rate FiO2 12/11/20 08:23 100 Ventilator 12/11/20 08:00 99.5 119 26 110/46 (67) 99.5 Weight Weight [ ] Input and Output Intake and Output Intake and Output 12/11/20 07:00 Intake Total 1352 ml Output Total 710 ml Balance 642 ml Intake Oral 226 ml IV Total 466 ml Tube Feeding 300 ml Other 360 ml Output Urine Total 710 ml Gastric Drainage Total 0 ml Laboratory Labs Laboratory Tests Test 12/10/20 13:27 12/10/20 20:09 12/11/20 00:22 12/11/20 05:18 Glucose (Fingerstick) 179 mg/dL (70-99) 178 mg/dL (70-99) 251 mg/dL (70-99) 268 mg/dL (70-99) Test 12/11/20 05:20 12/11/20 08:00 12/11/20 09:03 Creatine Kinase 212 U/L (26-192) O2 Saturation 96 % (92-99) Arterial Blood pH 7.47 (7.35-7.45) Arterial Blood pCO2 at Patient Temp 33 mmHg (35-46) Arterial Blood pO2 at Patient Temp 80 mmHg (65-108) Arterial Blood HCO3 23 mmol/L (21-28) Arterial Blood Base Excess 0 mmol/L (-3-3) FiO2 35%+5 Glucose (Fingerstick) 243 mg/dL (70-99) Microbiology Micro Microbiology 12/07/20 Gram Stain Evaluation - Final, Complete 12/07/20 Respiratory Culture - Final, Complete 12/07/20 Antimicrobic Susceptibility - Final, Complete 12/07/20 Blood Culture - Preliminary, Resulted NO GROWTH AFTER 3 DAYS Physical Exam HEENT: Neck Supple W Full Motion Chest: Symmetric LUNGS: Other (diminished, intubated with vent) Heart: RRR (SR/ST), other (distant heart tones ) Abdomen: Soft N/T Extremities: Other (trace bilateral LE edema; Left arm edema) Neurology: other (intubated, + gag and pupils reactive per staff) Assessment Assessment 1. Inferior STEMI: S/P PCI/SURYA to RCA with patent stents to LAD and LCx 2. HTN: controlled still needing levophed 3. Fever/sepsis: ID following 4. Acute respiratory failure with possible pneumonia 5. HLP 6. DM2 7. Encephalopathy: off sedation 8. Left displaced humeral fracture 9. ICM: EF at 35% 10. Acute on chronic diastolic/systolic CHF Recommendations 1. Continue DAPT. Hold BP meds for now. Levophed is in place. Lasix x1. BMP today, replace K and Mg as warranted 2. Antibiotics per ID 3. Titrate off levophed 4. Consult ortho, neuro Justicifation of Admission Dx: Justifications for Admission: Justification of Admission Dx: N/A SUNNY BRISENO MD 12/11/202110: CARDIO Progress Notes Plan Plan The patient was seen and interviewed as well as examined at the bedside. The chart was reviewed. The case was discussed. Agree with the plan of care. ANISHA MONIQUE APRN Dec 11, 2020 09:38 SUNNY BRISENO MD Dec 11, 2020 21:11
[2020-12-11] MEDS ORDERED: FUROSEMIDE 40 MG/4 ML VIAL. IVP ONE (09:45)
--- NOTE | 2020-12-11 09:57 | NUR ---
Dr Moran called back and no new orders were received. Dr will be by tomorrow to see pt. States the fracture looks to be a few months old so pt does not require a sling at this time.
--- NOTE | 2020-12-11 11:19 | PDOC ---
PULMONARY PROGRESS NOTES DATE: 12/11/20 TIME: 11:16 Subjective pt. remains on assist control mode She does trigger the ventilator and does have a gag reflex today. Vitals Vital Signs Date Time Temp Pulse Resp B/P (MAP) Pulse Ox O2 Delivery O2 Flow Rate FiO2 12/11/20 10:24 99 Ventilator 12/11/20 10:00 124 26 128/60 (82) 12/11/20 08:00 99.5 99.5 Comments intubated Lungs: Clear (CTABL) Cardiovascular: S1, S2 Abdomen: Soft Extremities: No Edema Skin: Warm, Dry Labs Laboratory Tests Test 12/09/20 12:20 12/09/20 20:15 12/10/20 00:10 12/10/20 04:16 Glucose (Fingerstick) 100 mg/dL (70-99) 160 mg/dL (70-99) 175 mg/dL (70-99) 168 mg/dL (70-99) Test 12/10/20 05:25 12/10/20 05:50 12/10/20 07:30 12/10/20 13:27 Magnesium Level 1.9 mg/dL (1.8-2.4) Sodium Level 147 mmol/L (136-145) Potassium Level 3.1 mmol/L (3.5-5.1) Chloride Level 111 mmol/L (98-107) Carbon Dioxide Level 26 mmol/L (21-32) Anion Gap 10 (6-14) Blood Urea Nitrogen 15 mg/dL (7-20) Creatinine 0.8 mg/dL (0.6-1.0) Estimated GFR (Cockcroft-Gault) 70.5 Glucose Level 170 mg/dL (70-99) Calcium Level 7.9 mg/dL (8.5-10.1) O2 Saturation 96 % (92-99) Arterial Blood pH 7.48 (7.35-7.45) Arterial Blood pCO2 at Patient Temp 30 mmHg (35-46) Arterial Blood pO2 at Patient Temp 84 mmHg (65-108) Arterial Blood HCO3 21 mmol/L (21-28) Arterial Blood Base Excess -2 mmol/L (-3-3) FiO2 35/vent Glucose (Fingerstick) 179 mg/dL (70-99) Test 12/10/20 20:09 12/11/20 00:22 12/11/20 05:18 12/11/20 05:20 Glucose (Fingerstick) 178 mg/dL (70-99) 251 mg/dL (70-99) 268 mg/dL (70-99) Creatine Kinase 212 U/L (26-192) Test 12/11/20 08:00 12/11/20 09:03 O2 Saturation 96 % (92-99) Arterial Blood pH 7.47 (7.35-7.45) Arterial Blood pCO2 at Patient Temp 33 mmHg (35-46) Arterial Blood pO2 at Patient Temp 80 mmHg (65-108) Arterial Blood HCO3 23 mmol/L (21-28) Arterial Blood Base Excess 0 mmol/L (-3-3) FiO2 35%+5 Glucose (Fingerstick) 243 mg/dL (70-99) Laboratory Tests Test 12/10/20 13:27 12/10/20 20:09 12/11/20 00:22 12/11/20 05:18 Glucose (Fingerstick) 179 mg/dL (70-99) 178 mg/dL (70-99) 251 mg/dL (70-99) 268 mg/dL (70-99) Test 12/11/20 05:20 12/11/20 08:00 12/11/20 09:03 Creatine Kinase 212 U/L (26-192) O2 Saturation 96 % (92-99) Arterial Blood pH 7.47 (7.35-7.45) Arterial Blood pCO2 at Patient Temp 33 mmHg (35-46) Arterial Blood pO2 at Patient Temp 80 mmHg (65-108) Arterial Blood HCO3 23 mmol/L (21-28) Arterial Blood Base Excess 0 mmol/L (-3-3) FiO2 35%+5 Glucose (Fingerstick) 243 mg/dL (70-99) Medications Active Scripts Medications Dose Route/Sig Max Daily Dose Days Date Category Dose Instructions Reglan (Metoclopramide Hcl) 5 Mg Tablet 1 Tab PO QAM 12/05/20 Reported 1 hour prior to procedure Klor-Con 10 (Potassium Chloride) 10 Meq Tablet.er 1 Tab PO DAILY 30 12/05/20 Reported Pantoprazole Sodium (Pantoprazole Sodium) 40 Mg Tablet.dr 40 Mg PO DAILYAC 12/05/20 Reported Ondansetron Hcl 4 Mg Tablet 8 Mg PO BID PRN 12/05/20 Reported Midodrine Hcl 10 Mg Tablet 10 Mg PO TID 12/05/20 Reported Mirtazapine 15 Mg Tablet 15 Mg PO DAILY 12/05/20 Reported Metoprolol Tartrate 25 Mg Tablet 1 Tab PO QAM 12/05/20 Reported Lantus Solostar (Insulin Glargine,Hum.rec.anlog) 100 Unit/1 Ml Insuln.pen 10 Unit SQ QHS 12/05/20 Reported Gabapentin (Gabapentin) 300 Mg Capsule 300 Mg PO PRN QHS PRN 12/05/20 Reported Fludrocortisone Acetate 0.1 Mg Tablet 0.1 Mg PO QAM 12/05/20 Reported Cymbalta (Duloxetine Hcl) 30 Mg Capsule.dr 1 Cap PO DAILY 12/05/20 Reported Atorvastatin Calcium 40 Mg Tablet 1 Tab PO DAILY 12/05/20 Reported Aspirin 325 Mg Tablet 1 Tab PO DAILY 12/05/20 Reported Cipro (Ciprofloxacin Hcl) 250 Mg Tablet 1 Tab PO BID 7 12/05/20 Reported Carvedilol (Carvedilol) 3.125 Mg Tablet 1 Tab PO BID 08/25/17 Reported Gabapentin (Gabapentin) 100 Mg Capsule 100 Mg PO HS 08/25/17 Reported Reglan (Metoclopramide Hcl) 10 Mg Tablet 10 Mg PO QIDACHS PRN 08/25/17 Reported Pravachol (Pravastatin Sodium) 40 Mg Tablet 1 Tab PO HS 08/25/17 Reported Toprol Xl (Metoprolol Succinate) 25 Mg Tab.er.24h 0.5 Tab PO DAILY 08/25/17 Reported Lantus Solostar (Insulin Glargine,Hum.rec.anlog) 100 Unit/1 Ml Insuln.pen 18 Unit SQ QHS 12/02/16 Reported Comments Chest x-ray reviewed dated 12/11/2020 Significant improvement in the right upper lobe lung infiltrates. Unchanged nonhealing left humeral fracture Impression . IMPRESSION: 1. Acute hypoxemic respiratory failure, multifactorial in etiology including aspiration pneumonia, acute systolic congestive heart failure, DKA,? cerebrovascular accident. 2. Abnormal chest x-ray, suspect secondary to aspiration pneumonia and acute systolic congestive heart failure. Improving infiltrates in the right lung. 3. Diabetic ketoacidosis--resolved 4. Encephalopathy , likely post sedation induced. 5. Acute inferior ST elevation myocardial infarction, status post percutaneous coronary intervention and stent placement. 6. Acute kidney injury--resolved 8. Hypotension, 9. Diabetes mellitus. 10. Nonhealing left humeral fracture. This is known to the family and patient had declined to undergo any operative intervention in the past. 11. Cardiomyopathy with an ejection fraction of 35%. Plan . Updated 12/11/20 Continue current vent support A/C mode 24/350/5/35% Mild clinical improvement. She continues to trigger the ventilator. She has a positive gag reflex. off sedation to assess neurological function , likely sedation induced encephalopathy, slow to improve. May take few more days to wake up. Follow CXR/ABG --reduced Fi02 to 35% Continue vasopressor to keep MAP above 65, Albumin PRN Follow Cardiology recs-- S/P PCI to RCA-- EF 45% Follow ID recs-- for ABX/ Fever, follow cultures-- MRSA on Resp. Culture now on zyvox , significant improvement in infiltrates from the right side. DM I per PCP Tube feeding for nutritional support DVT/GI PPX D/W RN and RT d/w son in detail. We will continue to monitor for neurological improvement. We will hold off any further imaging studies of the brain until the end of the week. Updated 12/10/20 Continue current vent support A/C mode 24/350/5/45% reduce rate today off sedation to assess neurological function , likely sedation induced encephalopathy Follow CXR/ABG --reduce Fi02 to 35% Continue vasopressor to keep MAP above 65, Albumin PRN Follow Cardiology recs-- S/P PCI to RCA-- EF 45% Follow ID recs-- for ABX/ Fever, follow cultures-- MRSA on Resp. Culture now on zyvox DM I per PCP Tube feeding for nutritional support DVT/GI PPX D/W RN and RT d/w son in detail Updated 12/09/20 Continue current vent support A/C mode 24/350/5/45% DC sedation to assess neurological function Follow CXR/ABG --reduce Fi02 to 35% Continue vasopressor to keep MAP above 65, Albumin PRN Follow Cardiology recs-- S/P PCI to RCA-- EF 45% Follow ID recs-- for ABX/ Fever, follow cultures-- MRSA on Resp. Culture now on zyvox DM I per PCP Tube feeding for nutritional support DVT/GI PPX D/W RN and RT Updated 12/08/20 Continue current vent support A/C mode 45% and PEEP of 7 proceed with reducing sedation to assess neurological function and ability to proceed with PS trial Follow CXR/ABG Continue vasopressor to keep MAP above 65, Albumin PRN Follow Cardiology recs-- S/P PCI to RCA-- EF 45% Follow ID recs-- for ABX/ Fever, follow cultures Staph. A on Resp. Culture DM I per PCP DVT/GI PPX D/W RN and RT PLAN AND RECOMMENDATIONS:12/07/20 1. Titrate FIO2 to keep O2 saturation 94%. 2. Continue ventilator support. ABG was reviewed. I increased her rate to 24. She has severe metabolic acidosis. Hopefully, will improve with treatment of DKA. 3. I do recommend nephrology consultation. 4. Cardiology is on the case. 5. ID is consulted. Change antibiotic from Zosyn to meropenem. 6. Sputum for Gram stain and culture, blood culture and urine culture. Follow up results. 7. Continue pressors to keep mean arterial pressure 65. 8. Echocardiogram per cardiology. 9. The findings and recommendations were discussed with RN and RT and ID. SALEEM WILDER MD Dec 11, 2020 11:19
[2020-12-11] MEDS ORDERED: DAPTOmycin (GENERIC) IVPB 320 MG in IV NORMAL SALINE 50ML 50 ML IV SCH (12:00)
--- NOTE | 2020-12-11 12:23 | PDOC2 ---
NEUROLOGY CONSULT Date of Service DOS: DATE: 12/11/20 TIME: 12:19 Reason for Consult Reason for Consult: Altered mental status Referring Physician Referring Physician: Dr. Shlomo Dillon Source Source: Caregiver (Significant other, daughter), Chart review History of Present Illness History of Present Illness The patient is a 70-year-old right-handed female who presented to [facility] emergency room on 12/05 for code stroke. She was at an eye doctor when she started having slurred speech and altered mentation. 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 She also has trouble with her type 1 diabetes. He thought that she was acting like she was hypoglycemic and brought her home and gave her some sugar water, but symptoms persisted. When he checked her sugar was 380s. She was also having frequent emesis so he brought her to the hospital. She did have a head CT as reviewed below. She had an NIH score. Attention was mainly paid to hyperglycemia and ST elevation myocardial infarction so she was transferred to [place]. She was taken to the [facility] and had stent placements. She has been intubated and mostly unresponsive ever since. No one has witnessed any seizure activity. About 8 years ago she was at [facility] for a diabetic coma, she was unconscious for a week but made a full recovery. Past Medical History Cardiovascular: CAD, HTN, Hyperlipidemia CENTRAL NERVOUS SYSTEM: CVA GI: Other (Diarrhea) Renal/: Urinary Incontinence, Other (Nephrolithiasis) Endocrine: Diabetes (Type I) Past Surgical History Past Surgical History: Cholecystectomy, Other (Coronary stents, left second toe partial amputation) Family History Family History: CVA, Other (Parkinson's) Current Medications Current Medications Current Medications Lidocaine HCl (Lidocaine 1% 20ml Vial) 20 ml STK-MED ONCE .ROUTE ; Start 12/05/20 at 18:24; Stop 12/05/20 at 18:24; Status DC Fentanyl Citrate (Fentanyl 2ml Vial) 100 mcg STK-MED ONCE .ROUTE ; Start 12/05/20 at 18:30; Stop 12/05/20 at 18:30; Status DC Midazolam HCl (Versed) 2 mg STK-MED ONCE .ROUTE ; Start 12/05/20 at 18:30; Stop 12/05/20 at 18:31; Status DC Heparin Sodium (Porcine) (Heparin Sodium) 10,000 unit STK-MED ONCE .ROUTE ; Start 12/05/20 at 18:39; Stop 12/05/20 at 18:40; Status DC Tirofiban/Sodium Chloride 100 ml @ As Directed STK-MED ONCE IV ; Start 12/05/20 at 18:39; Stop 12/05/20 at 18:40; Status DC Atropine Sulfate (ATROPINE 1mg SYRINGE) 1 mg STK-MED ONCE .ROUTE ; Start 12/05/20 at 18:42; Stop 12/05/20 at 18:43; Status DC Nitroglycerin (Nitroglycerin) 200 mcg STK-MED ONCE .ROUTE ; Start 12/05/20 at 18:55; Stop 12/05/20 at 18:55; Status DC Nitroglycerin (Nitroglycerin) 200 mcg 1X ONCE IART Last administered on 12/05/20at 19:29; Start 12/05/20 at 19:00; Stop 12/05/20 at 19:03; Status DC Heparin Sodium/ Sodium Chloride (HEPARIN for ARTERIAL LINE FLUSH) 1,000 unit 1X ONCE IART Last administered on 12/05/20at 19:28; Start 12/05/20 at 19:00; Stop 12/05/20 at 19:03; Status DC Heparin Sodium/ Sodium Chloride (HEPARIN for ARTERIAL LINE FLUSH) 1,000 unit 1X ONCE IART Last administered on 12/05/20at 19:28; Start 12/05/20 at 19:00; Stop 12/05/20 at 19:03; Status DC Midazolam HCl (Versed) 1 mg 1X ONCE IV Last administered on 12/05/20at 19:29; Start 12/05/20 at 19:00; Stop 12/05/20 at 19:03; Status DC Fentanyl Citrate (Fentanyl 2ml Vial) 25 mcg 1X ONCE IV Last administered on 12/05/20at 19:29; Start 12/05/20 at 19:00; Stop 12/05/20 at 19:03; Status DC Iodixanol (Visipaque 320) 100 ml 1X ONCE IART Last administered on 12/05/20at 19:28; Start 12/05/20 at 19:00; Stop 12/05/20 at 19:03; Status DC Heparin Sodium (Porcine) (Heparin Sodium) 4,000 unit 1X ONCE IV Last a dministered on 12/05/20at 19:30; Start 12/05/20 at 19:00; Stop 12/05/20 at 19:03; Status DC Lidocaine HCl (Lidocaine 1% 20ml Vial) 10 ml 1X ONCE INJ Last administered on 12/05/20at 19:29; Start 12/05/20 at 19:00; Stop 12/05/20 at 19:03; Status DC Info (CONTRAST GIVEN -- Rx MONITORING) 1 each PRN DAILY PRN MC SEE COMMENTS; Start 12/05/20 at 19:15; Stop 12/07/20 at 19:14; Status DC Tirofiban/Sodium Chloride 100 ml @ 0 mls/hr CONT PRN IV PER PROTOCOL Last administered on 12/05/20at 19:01; Start 12/05/20 at 19:05; Stop 12/09/20 at 12:51; Status DC Sodium Chloride (Normal Saline Flush) 3 ml QSHIFT PRN IV AFTER MEDS AND BLOOD DRAWS; Start 12/05/20 at 19:30 Aspirin (Ecotrin) 81 mg DAILYWBKFT PO ; Start 12/06/20 at 08:00; Status Cancel Clopidogrel Bisulfate (Plavix) 75 mg DAILYWBKFT PO Last administered on 12/11/20at 08:41; Start 12/06/20 at 08:00 Atorvastatin Calcium (Lipitor) 40 mg QHS PO Last administered on 12/10/20at 20:43; Start 12/05/20 at 21:00 Acetaminophen (Tylenol) 650 mg PRN Q6HRS PRN PO MILD PAIN / TEMP > 100.3'F Last administered on 12/06/20at 21:36; Start 12/05/20 at 19:30 Fentanyl Citrate (Fentanyl 2ml Vial) 50 mcg PRN Q1HR PRN IV MODERATE OR SEVERE PAIN; Start 12/05/20 at 19:30; Stop 12/08/20 at 01:17; Status DC Nitroglycerin (Nitrostat) 0.4 mg PRN Q5MIN PRN SL CHEST PAIN; Start 12/05/20 at 19:30 Amiodarone HCl 150 mg/Dextrose 103 ml @ 600 mls/hr 1X PRN PRN IV FOR VENTRICULAR TACHYCARDIA; Start 12/05/20 at 19:30 Lidocaine HCl (Lidocaine HCl 2% Abboject) 100 mg 1X PRN PRN IV FOR VENTRICULAR TACHYCARDIA; Start 12/05/20 at 19:30 Atropine Sulfate (ATROPINE 0.5mg SYRINGE) 0.5 mg PRN 1X PRN IV BRADYCARDIA; Start 12/05/20 at 19:30 Clopidogrel Bisulfate (Plavix) 600 mg 1X ONCE PO ; Start 12/05/20 at 19:30; Stop 12/05/20 at 19:39; Status DC Insulin Human Lispro (HumaLOG) 0-7 UNITS TIDWMEALS SQ Last administered on 12/07/20at 11:37; Start 12/06/20 at 08:00; Stop 12/07/20 at 12:32; Status DC Dextrose (Dextrose 50%-Water Syringe) 12.5 gm PRN Q15MIN PRN IV SEE COMMENTS; Start 12/05/20 at 21:00 Insulin Glargine (Lantus Syringe) 10 unit QHS SQ Last administered on 12/06/20at 22:43; Start 12/05/20 at 21:00; Stop 12/07/20 at 12:32; Status DC Potassium Chloride/Water 100 ml @ 100 mls/hr PRN Q1HR PRN IV SEE COMMENTS Last administered on 12/06/20at 11:07; Start 12/06/20 at 07:00 Potassium Chloride/Water 100 ml @ 100 mls/hr PRN Q1HR PRN IV SEE COMMENTS; Start 12/06/20 at 07:00 Potassium Chloride/Water 100 ml @ 100 mls/hr PRN Q1HR PRN IV SEE COMMENTS; Start 12/06/20 at 07:00 Insulin Human Regular 100 unit/ Sodium Chloride 101 ml @ 0 mls/hr CONT PRN IV SEE I/O RECORD Last administered on 12/06/20at 08:34; Start 12/06/20 at 07:00; Stop 12/07/20 at 17:22; Status DC Levofloxacin/ Dextrose 50 ml @ 50 mls/hr Q24H IV Last administered on 12/06/20at 11:06; Start 12/06/20 at 10:15; Stop 12/07/20 at 11:02; Status DC Acetaminophen (Tylenol Supp) 325 mg PRN Q6HRS PRN MI MILD PAIN / TEMP > 100.3'F Last administered on 12/09/20at 20:33; Start 12/06/20 at 10:45 Sodium Bicarbonate 50 meq/Sodium Chloride 1,050 ml @ 100 mls/hr [id number] IV Last administered on 12/06/20at 11:42; Start 12/06/20 at 11:00; Stop 12/06/20 at 21:29; Status DC Aspirin (Jake Aspirin) 325 mg DAILY PO Last administered on 12/11/20at 08:41; Start 12/07/20 at 09:00 Atorvastatin Calcium (Lipitor) 40 mg DAILY PO ; Start 12/07/20 at 09:00; Status UNV Carvedilol (Coreg) 3.125 mg BIDWMEALS PO ; Start 12/06/20 at 17:00; Stop 12/06/20 at 17:05; Status DC Ciprofloxacin (Cipro) 250 mg BID PO ; Start 12/06/20 at 21:00; Status UNV Duloxetine HCl (Cymbalta) 30 mg DAILY PO Last administered on 12/10/20at 11:32; Start 12/06/20 at 13:00 Fludrocortisone Acetate (Florinef) 0.1 mg QAM PO Last administered on 12/09/20at 12:53; Start 12/06/20 at 13:00 Gabapentin (Neurontin) 100 mg HS PO Last administered on 12/10/20at 20:41; Start 12/06/20 at 21:00 Gabapentin (Neurontin) 300 mg PRN QHS PRN PO NEUROPATHIC PAIN; Start 12/06/20 at 12:15 Metoclopramide HCl (Reglan) 5 mg QAM PO ; Start 12/07/20 at 09:00; Stop 12/07/20 at 12:32; Status DC Metoclopramide HCl (Reglan) 10 mg PRN QID PRN PO NAUSEA/VOMITING; Start 12/06/20 at 12:15 Metoprolol Succinate (Toprol Xl) 12.5 mg DAILY PO ; Start 12/07/20 at 09:00; Stop 12/06/20 at 17:05; Status DC Metoprolol Tartrate (Lopressor) 25 mg QAM PO ; Start 12/07/20 at 09:00; Stop 12/06/20 at 17:05; Status DC Mirtazapine (Remeron) 15 mg DAILY PO Last administered on 12/11/20at 08:41; Start 12/07/20 at 09:00 Pantoprazole Sodium (Protonix) 40 mg DAILYAC PO ; Start 12/07/20 at 07:30; Stop 12/07/20 at 11:01; Status DC Non-Formulary Medication (Insulin Glargine,Hum.rec.anlog (Lantus Solostar)) 10 unit QHS SQ ; Start 12/06/20 at 21:00; Stop 12/07/20 at 11:58; Status DC Non-Formulary Medication (Insulin Glargine,Hum.rec.anlog (Lantus Solostar)) 18 unit QHS SQ ; Start 12/06/20 at 21:00; Stop 12/07/20 at 11:58; Status DC Midodrine (Proamatine) 10 mg [id number] PO Last administered on 12/09/20at 12:33; Start 12/06/20 at 13:00 Non-Formulary Medication (Ondansetron Hcl ) 8 mg BID PRN PO NAUSEA/VOMITING; Start 12/06/20 at 12:15; Stop 12/06/20 at 12:56; Status DC Potassium Chloride (Klor-Con) 10 meq DAILY PO ; Start 12/07/20 at 09:00; Stop 12/07/20 at 11:58; Status DC Non-Formulary Medication (Pravastatin Sodium (Pravachol)) 1 tab HS PO ; Start 12/06/20 at 21:00; Status UNV Prednisone (Prednisone) 5 mg DAILY PO Last administered on 12/11/20at 08:41; Start 12/07/20 at 09:00 Ondansetron HCl (Zofran) 4 mg PRN Q6HRS PRN IVP NAUSEA/VOMITING Last administered on 12/06/20at 13:53; Start 12/06/20 at 14:00 Clopidogrel Bisulfate (Plavix) 600 mg 1X ONCE PO Last administered on 12/06/20at 19:49; Start 12/06/20 at 18:00; Stop 12/06/20 at 18:40; Status DC Aspirin (Aspirin Chewable) 81 mg DAILYWBKFT PO Last administered on 12/07/20at 08:03; Start 12/06/20 at 19:00; Stop 12/07/20 at 11:02; Status DC Propofol 100 ml @ As Directed STK-MED ONCE IV ; Start 12/07/20 at 06:55; Stop 12/07/20 at 06:56; Status DC Fentanyl Citrate 30 ml @ 0 mls/hr CONT PRN IV SEE PROTOCOL Last administered on 12/09/20at 06:38; Start 12/07/20 at 07:00 Propofol 100 ml @ 0 mls/hr CONT PRN IV PER PROTOCOL; Start 12/07/20 at 07:00 Fentanyl Citrate (Fentanyl 2ml Vial) 25 mcg PRN Q1HR PRN IV SEE COMMENTS; Start 12/07/20 at 07:00 Fentanyl Citrate (Fentanyl 2ml Vial) 50 mcg PRN Q1HR PRN IV SEE COMMENTS; Start 12/07/20 at 07:00 Morphine Sulfate (Morphine Sulfate) 2 mg PRN Q1HR PRN IV SEE COMMENTS.; Start 12/07/20 at 07:00; Stop 12/08/20 at 01:18; Status DC Morphine Sulfate (Morphine Sulfate) 4 mg PRN Q1HR PRN IV SEE COMMENTS.; Start 12/07/20 at 07:00; Stop 12/08/20 at 01:18; Status DC Midazolam HCl 100 ml @ 0 mls/hr CONT PRN IV SEE PROTOCOL Last administered on 12/08/20at 04:57; Start 12/07/20 at 07:00 Norepinephrine Bitartrate 8 mg/ Dextrose 258 ml @ 5.137 mls/ hr CONT PRN IV PER PROTOCOL Last administered on 12/11/20at 01:52; Start 12/07/20 at 08:15 Pantoprazole Sodium (PROTONIX VIAL for IV PUSH) 40 mg DAILYAC IVP Last administered on 12/11/20at 08:40; Start 12/08/20 at 07:30 Meropenem 500 mg/ Sodium Chloride 50 ml @ 100 mls/hr Q8HRS IV Last administered on 12/11/20at 06:27; Start 12/07/20 at 14:00 Sodium Chloride 500 ml @ 500 mls/hr 1X ONCE IV Last administered on 12/07/20at 11:16; Start 12/07/20 at 11:15; Stop 12/07/20 at 12:14; Status DC Insulin Human Lispro (HumaLOG) 0-7 UNITS Q4HRS SQ Last administered on 12/11/20at 12:05; Start 12/07/20 at 16:00 Insulin Glargine (Lantus Syringe) 20 unit QHS SQ Last administered on 12/09/20at 00:39; Start 12/07/20 at 21:00; Stop 12/09/20 at 19:55; Status DC Potassium Chloride/Water 100 ml @ 100 mls/hr 1X ONCE IV Last administered on 12/07/20at 16:48; Start 12/07/20 at 17:00; Stop 12/07/20 at 17:59; Status DC Magnesium Sulfate 50 ml @ 25 mls/hr 1X ONCE IV Last administered on 12/07/20at 16:48; Start 12/07/20 at 17:00; Stop 12/07/20 at 18:59; Status DC Insulin Human Regular 100 unit/ Sodium Chloride 101 ml @ 5.363 mls/ hr CONT PRN IV SEE I/O RECORD; Start 12/07/20 at 17:30; Stop 12/07/20 at 17:43; Status DC Insulin Human Regular 100 unit/ Sodium Chloride 101 ml @ 0 mls/hr CONT PRN IV SEE I/O RECORD Last administered on 12/07/20at 17:49; Start 12/07/20 at 17:45; Stop 12/10/20 at 10:57; Status DC Daptomycin 290 mg/ Sodium Chloride 50 ml @ 100 mls/hr Q24H IV Last administered on 12/10/20at 10:00; Start 12/08/20 at 10:00; Stop 12/10/20 at 23:00; Status DC Albumin Human 500 ml @ 125 mls/hr 1X ONCE IV Last administered on 12/08/20at 10:05; Start 12/08/20 at 10:00; Stop 12/08/20 at 13:59; Status DC Linezolid/Dextrose 300 ml @ 300 mls/hr Q12HR IV Last administered on 12/11/20at 08:41; Start 12/09/20 at 09:00 Insulin Glargine (Lantus Syringe) 10 unit QHS SQ Last administered on 12/10/20at 20:42; Start 12/09/20 at 21:00 Potassium Chloride/Water 100 ml @ 100 mls/hr Q1H IV Last administered on 12/10/20at 17:32; Start 12/10/20 at 12:00; Stop 12/10/20 at 15:59; Status DC Daptomycin 320 mg/ Sodium Chloride 50 ml @ 100 mls/hr Q24H IV Last administered on 12/11/20at 12:03; Start 12/11/20 at 12:00 Furosemide (Lasix) 40 mg 1X ONCE IVP Last administered on 12/11/20at 10:02; Start 12/11/20 at 09:45; Stop 12/11/20 at 09:46; Status DC Active Scripts Active Reported Reglan (Metoclopramide Hcl) 5 Mg Tablet 1 Tab PO QAM 1 hour prior to procedure Klor-Con 10 (Potassium Chloride) 10 Meq Tablet.er 1 Tab PO DAILY 30 Days Pantoprazole Sodium (Pantoprazole Sodium) 40 Mg Tablet.dr 40 Mg PO DAILYAC Ondansetron Hcl 4 Mg Tablet 8 Mg PO BID PRN Midodrine Hcl 10 Mg Tablet 10 Mg PO TID Mirtazapine 15 Mg Tablet 15 Mg PO DAILY Metoprolol Tartrate 25 Mg Tablet 1 Tab PO QAM Lantus Solostar (Insulin Glargine,Hum.rec.anlog) 100 Unit/1 Ml Insuln.pen 10 Unit SQ QHS Gabapentin (Gabapentin) 300 Mg Capsule 300 Mg PO PRN QHS PRN Fludrocortisone Acetate 0.1 Mg Tablet 0.1 Mg PO QAM Cymbalta (Duloxetine Hcl) 30 Mg Capsule.dr 1 Cap PO DAILY Atorvastatin Calcium 40 Mg Tablet 1 Tab PO DAILY Aspirin 325 Mg Tablet 1 Tab PO DAILY Cipro (Ciprofloxacin Hcl) 250 Mg Tablet 1 Tab PO BID 7 Days Carvedilol (Carvedilol) 3.125 Mg Tablet 1 Tab PO BID Gabapentin (Gabapentin) 100 Mg Capsule 100 Mg PO HS Reglan (Metoclopramide Hcl) 10 Mg Tablet 10 Mg PO QIDACHS PRN Pravachol (Pravastatin Sodium) 40 Mg Tablet 1 Tab PO HS Toprol Xl (Metoprolol Succinate) 25 Mg Tab.er.24h 0.5 Tab PO DAILY Lantus Solostar (Insulin Glargine,Hum.rec.anlog) 100 Unit/1 Ml Insuln.pen 18 Unit SQ QHS Allergies Allergies: Coded Allergies: Penicillins (Verified Allergy, Severe, Anaphylaxis, 08/25/17) codeine (Verified Allergy, Mild, Itching, 08/25/17) I S O L A T I O N *CONTACT* (Verified Allergy, Unknown, 12/10/20) mrsa ROS Review of System Negative for fever, chills, weight loss, shortness of breath, chest pain, indigestion, hematochezia, melena, and dysuria. Full 14-point review of systems is negative. Physical Exam Physical Examination General: Well-developed, well-nourished white female in no acute distress HEENT: Normocephalic andatraumatic. Temporal arteriespulsatile and nontender. Neck: Supple without bruit, no meningismus Musculoskeletal: Stability:see neurologic. Gait exam:see neurologic. Tone:see neurologic.Strength:see neurologic. Neurological: Mental Status:No response to voice or pain. Cranial Nerves:Pupils equal and minimally reactive to light, no spontaneous extraocular movements. There is no facial asymmetry. Vestibulo-ocular reflex is intact. Reflexes:1+ and symmetric with silent plantar responses. Motor:No withdrawal to pain. Coordination and gait:Not cooperative. Sensory:Not cooperative. Vitals VITALS Vital Signs Date Time Temp Pulse Resp B/P (MAP) Pulse Ox O2 Delivery O2 Flow Rate FiO2 12/11/20 12:11 99 Ventilator 12/11/20 12:00 99.6 108 22 94/42 (59) 99.6 Labs Labs Laboratory Tests Test 12/09/20 12:20 12/09/20 20:15 12/10/20 00:10 12/10/20 04:16 Glucose (Fingerstick) 100 mg/dL (70-99) 160 mg/dL (70-99) 175 mg/dL (70-99) 168 mg/dL (70-99) Test 12/10/20 05:25 12/10/20 05:50 12/10/20 07:30 12/10/20 13:27 Magnesium Level 1.9 mg/dL (1.8-2.4) Sodium Level 147 mmol/L (136-145) Potassium Level 3.1 mmol/L (3.5-5.1) Chloride Level 111 mmol/L (98-107) Carbon Dioxide Level 26 mmol/L (21-32) Anion Gap 10 (6-14) Blood Urea Nitrogen 15 mg/dL (7-20) Creatinine 0.8 mg/dL (0.6-1.0) Estimated GFR (Cockcroft-Gault) 70.5 Glucose Level 170 mg/dL (70-99) Calcium Level 7.9 mg/dL (8.5-10.1) O2 Saturation 96 % (92-99) Arterial Blood pH 7.48 (7.35-7.45) Arterial Blood pCO2 at Patient Temp 30 mmHg (35-46) Arterial Blood pO2 at Patient Temp 84 mmHg (65-108) Arterial Blood HCO3 21 mmol/L (21-28) Arterial Blood Base Excess -2 mmol/L (-3-3) FiO2 35/vent Glucose (Fingerstick) 179 mg/dL (70-99) Test 12/10/20 20:09 12/11/20 00:22 12/11/20 05:18 12/11/20 05:20 Glucose (Fingerstick) 178 mg/dL (70-99) 251 mg/dL (70-99) 268 mg/dL (70-99) Creatine Kinase 212 U/L (26-192) Test 12/11/20 08:00 12/11/20 09:03 12/11/20 11:53 O2 Saturation 96 % (92-99) Arterial Blood pH 7.47 (7.35-7.45) Arterial Blood pCO2 at Patient Temp 33 mmHg (35-46) Arterial Blood pO2 at Patient Temp 80 mmHg (65-108) Arterial Blood HCO3 23 mmol/L (21-28) Arterial Blood Base Excess 0 mmol/L (-3-3) FiO2 35%+5 Glucose (Fingerstick) 243 mg/dL (70-99) 288 mg/dL (70-99) Laboratory Tests Test 12/10/20 13:27 12/10/20 20:09 12/11/20 00:22 12/11/20 05:18 Glucose (Fingerstick) 179 mg/dL (70-99) 178 mg/dL (70-99) 251 mg/dL (70-99) 268 mg/dL (70-99) Test 12/11/20 05:20 12/11/20 08:00 12/11/20 09:03 12/11/20 11:53 Creatine Kinase 212 U/L (26-192) O2 Saturation 96 % (92-99) Arterial Blood pH 7.47 (7.35-7.45) Arterial Blood pCO2 at Patient Temp 33 mmHg (35-46) Arterial Blood pO2 at Patient Temp 80 mmHg (65-108) Arterial Blood HCO3 23 mmol/L (21-28) Arterial Blood Base Excess 0 mmol/L (-3-3) FiO2 35%+5 Glucose (Fingerstick) 243 mg/dL (70-99) 288 mg/dL (70-99) Images Images CT STROKE HEAD W/O, 12/05/16, [place] History: Reason: aLTERED loc cva s/s / Spl. Instructions: / History: Comparison: April 10, 2011 Technique: Noncontrast CT imaging was performed of the head. Exposure: One or more of the following individualized dose reduction techniques were utilized for this examination: 1. Automated exposure control 2. Adjustment of the mA and/or kV according to patient size 3. Use of iterative reconstruction technique. Findings: No intracranial hemorrhage. No mass effect. No hydrocephalus. Bilateral occipital cortical and subcortical hypoattenuation Imaged orbits are unremarkable. Imaged paranasal sinuses and mastoid air cells are clear. No acute calvarial fracture. Impression: 1. No acute intracranial hemorrhage. 2. Bilateral occipital infarcts, most likely chronic although age indeterminate. Recommend MRI to further evaluate. Assessment/Plan Assessment/Plan Impression: Metabolic encephalopathy, but her sugar was not that elevated, does not sound like she had a prolonged anoxia, hypertension, hypotension. Her initial symp toms at the [employer] was dysarthria, so we need to be concerned that she did start having a stroke at that time. ST elevation myocardial infarction status-post coronary stents, hypertension, fever/sepsis, respiratory failure with possible pneumonia. Hyperlipidemia, diabetes, ischemic cardiomyopathy, congestive heart failure. Recommendations: I discussed risk, benefits, alternatives including transport problems given the fact that she is in the ICU as well as the fact that she had recent coronary stents. I would like to get an MRI to definitively show if she has had a stroke. Family would benefit from knowing if she had a large hemispheric infarct. Continue full current ICU care, note that she is intubated and also on pressors. Fully discussed with patient's significant other, daughter, son-in-law. Thank you for letting me help with the patient's care. EMELIA KNIGHT MD Dec 11, 2020 12:23
--- NOTE | 2020-12-11 13:33 | PDOC ---
[employer] PROGRESS NOTE Date of Service DOS: DATE: 12/11/20 TIME: 13:28 Chief Complaint Chief Complaint Acute myocardial infarction with status post cardiac cath and 2 stents placed to the RCA DKA Prior coronary disease with prior stents Diabetes History of cardiomyopathy Polypharmacy Hyperlipidemia CHF Hypertension Neuropathy GERD History of Present Illness History of Present Illness 12/11/2020 Patient seen and examined at bedside Remains intubated Pulmonary cardiology infectious disease all consulted Family at bedside updated Chest x-ray today showed a left humerus fracture; unknown how long this has been present; was pointed out by team cardiology Orthopedics consulted Plan of care discussed with bedside nurse 12/10/2020 Patient seen and examined at bedside Rajat intubated at this point Overall no major clinical changes MRSA positive Son at bedside and discussed with him plan of care; he reported to me that patient had a similar episode approximately 5 years ago at [facility] where she was intubated for approximately a week and was able to be extubated and returned to normal life. Did inform him that the current situation with the STEMI it is unlikely that that would happen again however patient's family would like a time-limited trial for a few more days before beginning discussing withdrawal of care. Plan of care discussed with bedside nurse 12/09/2020 Patient seen and examined at bedside Remains intubated and sedated No major clinical changes overnight Concern for anoxic brain injury at this point We will begin goals of care discussion with family Plan of care discussed with bedside RN 12/08/2020 Patient seen and examined in the ICU Remains intubated and sedated Anion gap is improved insulin drip turned off Otherwise no major changes from previous day Continuing antibiotics Will wean ventilator as tolerated 12/07/2020 Patient seen and examined in the ICU She had to be intubated overnight Assist-control/24/350/50 percent with 5 of PEEP Anion gap slightly improved down to 21 I asked the nurse to resume the DKA protocol with the insulin drip She has mitts on for patient safety Sedated with fentanyl and Versed On IV Levophed as well She is critically ill Chart reviewed 12/06/2020 Patient seen and examined in the ICU She is obtunded Family is present (son and [id number]) Discussed the case at length with the family Chart reviewed Discussed with filling and packing supervisor explains that she is a frail diabetic She has slipped into DKA today Her pupils are still large but she apparently got atropine drops at the director emergency yesterday Vitals/I&O Vitals/I&O: Vital Signs Date Time Temp Pulse Resp B/P (MAP) Pulse Ox O2 Delivery O2 Flow Rate FiO2 12/11/20 12:11 99 Ventilator 12/11/20 12:00 99.6 108 22 94/42 (59) 99.6 I & O 12/10/20 12/10/20 12/11/20 15:00 23:00 07:00 Intake Total 510 ml 842 ml Output Total 250 ml 250 ml 210 ml Balance -250 ml 260 ml 632 ml Physical Exam Physical Exam: GENERAL: Sedated, orally intubated female, not in distress. VITAL SIGNS: stable HEENT: Both pupils are round and reacting. No conjunctival lesion. Mouth cannot be visualized, orally intubated. NECK: Supple, no JVP, no lymphadenopathy. LUNGS: Clear. HEART: S1, S2 regular. ABDOMEN: Soft, nontender, no organomegaly. EXTREMITIES: No edema, cyanosis. SKIN: Unremarkable. NEUROLOGIC: The patient is sedated, orally intubated. No focal deficit can be appreciated right now. General: Other (Intubated, sedated) Heart: Regular rate, Normal S1, Normal S2 Lungs: Clear (CTABL) Abdomen: Normal bowel sounds, Soft Extremities: No clubbing, No edema Skin: No rashes Labs Labs: Laboratory Tests Test 12/10/20 20:09 12/11/20 00:22 12/11/20 05:18 12/11/20 05:20 Glucose (Fingerstick) 178 mg/dL (70-99) 251 mg/dL (70-99) 268 mg/dL (70-99) Creatine Kinase 212 U/L (26-192) Test 12/11/20 08:00 12/11/20 09:03 12/11/20 11:53 O2 Saturation 96 % (92-99) Arterial Blood pH 7.47 (7.35-7.45) Arterial Blood pCO2 at Patient Temp 33 mmHg (35-46) Arterial Blood pO2 at Patient Temp 80 mmHg (65-108) Arterial Blood HCO3 23 mmol/L (21-28) Arterial Blood Base Excess 0 mmol/L (-3-3) FiO2 35%+5 Glucose (Fingerstick) 243 mg/dL (70-99) 288 mg/dL (70-99) Review of Systems Review of Systems: Cannot obtain Assessment and Plan Assessmemt and Plan Problems Medical Problems: (1) DKA (diabetic ketoacidoses) Status: Acute ssessmemt and Plan Acute myocardial infarction with status post cardiac cath and 2 stents placed to the RCA Respiratory failure requiring mechanical ventilation DKA Prior coronary disease with prior stents Diabetes History of cardiomyopathy Polypharmacy Hyperlipidemia CHF Hypertension Neuropathy GERD MRSA positive culture Plan ICU monitoring No longer requiring insulin drip we will continue to closely monitor sugars Trend labs DVT prophylaxis Full code Guarded prognosis, she does not have much clinical change overnight started discussing comfort measures with family however they would like a time-limited trial due to reasons as documented above Appreciate cardiology intervention Family at bedside updated on plan of care Pulmonology neurology infectious disease and cardiology are consulted Orthopedics consulted for left humerus fracture Comment Review of Relevant I have reviewed the following items boyd (where applicable) has been applied. Medications: Current Medications Medications (Trade) Dose Ordered Sig/Sandeep Route PRN Reason Start Time Stop Time Status Last Admin Dose Admin Daptomycin 320 mg/ Sodium Chloride 50 ml @ 100 mls/hr Q24H IV 12/11/20 12:00 12/11/20 12:03 Furosemide (Lasix) 40 mg 1X ONCE IVP 12/11/20 09:45 12/11/20 09:46 DC 12/11/20 10:02 Justifications for Admission Other Justification HENRY MONTANEZ MD Dec 11, 2020 13:33
--- NOTE | 2020-12-11 14:35 | RAD ---
INDICATION: Reason: CVA / Spl. Instructions: / History: COMPARISON: None. TECHNIQUE: Color, grayscale and doppler ultrasound images obtained of the carotid system bilaterally. Percent stenosis is estimated using criteria that correlates with NASCET methodology. FINDINGS: Peak systolic velocities are as follows in cm/s: There are lines within the right neck therefore cannot evaluate the right neck vessels. Left Carotid System: Plaque and intimal thickening is identified at the left common carotid artery. 38 cm/S peak systolic velocity distally. Occlusion at the level of the carotid bulb with mixed plaque seen within the regio n. Vascular flow is seen within the left external carotid artery 92 cm/S. Left internal carotid artery i s occluded. Left vertebral artery is partially seen with vascular flow seen within. Vascular flow seen in the partially visualized left subclavian artery 194 cm/S IMPRESSION: * Occlusion of the left internal carotid artery is identified. Report called to the floor at 2:28 PM on date of exam. * Could not evaluate the right carotid system secondary to lines in the region Electronically signed by: Chris Garza MD (12/11/2020 2:33 PM) [id number]
--- NOTE | 2020-12-11 15:45 | NUR ---
SS following up with discharge planning. SS reviewed pt chart and discussed with pt RN. Pt is currently on the vent at 35%. No sedation. Brain MRI ordered. Pt on IV Daptomycin, IV Meropenem, and IV Zyvox. Tube feeds. Ortho consulted for Humerus fracture. SS will continue to follow for discharge planning.
--- NOTE | 2020-12-11 16:56 | RAD ---
MRI of the brain without contrast 12/11/2020 Clinical History: Dysarthria.. Altered mental status. Technique: Unenhanced T1-weighted sagittal and axial, T2-weighted axial and coronal and FLAIR, gradie nt echo and diffusion-weighted axial images of the brain were obtained. Findings: Comparison is made to a CT scan of the head dated 12/05/2020. There is generalized parenchymal atrophy. Patchy, confluent and several small scattered areas of incr eased signal intensity are seen within the periventricular and subcortical white matter of both cereb ral hemispheres on the FLAIR and T2-weighted images consistent with areas of small vessel ischemic di sease. Areas of encephalomalacia are again seen involving both occipital lobes, left greater than rig ht. A large area restricted diffusion consistent with an area of acute infarction is seen involving porti ons of the right temporal, the right frontal and right parietal lobes. This measures 10.4 x 6.8 x 5.6 cm in AP, craniocaudal and transverse dimensions. There is surrounding edema and associated mass eff ect. Effacement of the right lateral ventricle is seen. No significant midline shift is noted. A smal l focal area of restricted diffusion is seen involving the superior left parietal lobe which measures 3 mm in size. This likely represents an area of acute ischemia/infarction. There is no surrounding e efrain or associated mass effect. Mild to moderate mucosal thickening is seen scattered throughout the paranasal sinuses. There are mod erate sized bilateral mastoid effusions. The left internal carotid artery is noted be occluded. Dimin ished arterial flow void is seen involving the anterior and middle branches of the right middle cereb ral artery. IMPRESSION: 1. Large area of acute infarction is seen involving portions of the right temporal, right frontal and right parietal lobes. There is surrounding edema and associated mass effect without significant midl ine shift. 2. 3 mm focal area of restricted diffusion is seen involving the superior left parietal lobe consiste nt with an area of acute ischemia/infarction. There is no significant surrounding edema or associated mass effect. These findings were discussed with the patient's nurse. FOR INTERNAL CODING PURPOSES RESULT CODE: (C) Electronically signed by: Emeka Crespo MD (12/11/2020 4:54 PM) [id number]
[2020-12-11] MEDS ORDERED: INSULIN GLARGINE SYRINGE. SQ SCH (21:00)
[2020-12-11] MEDS: ATORVASTATIN CALCIUM 20 MG TABLET PO SCH (21:03)
[2020-12-11] MEDS: GABAPENTIN 100 MG CAPSULE. PO SCH (21:03)
--- NOTE | 2020-12-11 21:38 | NUR ---
Patient started having couplets which lasted approximently 1 hour. Called family and discussed the situation, the son requested to come up with his sister to see the patient. I contacted ARACELY Mckeon to approve this visit, approval obtained. I called the son back to let him know that we had approved it for his sister and him to come visit for one hour. During this phone call the son, Cristian, stated that he had spoken with his sister and they requested that we do not do chest compressions if it came to that. I asked again if Cristian was telling me to make her a DNR and he replied "Yes". At this point I had Ashlyn Knowles, geriatrics physician to speak with Cristian on the phone to confirm his wishes. Patient is a DNR and order placed.
[2020-12-12] VITALS (14 sets, daily range): BP systolic 99–140; BP diastolic 40–60
[2020-12-12] MEDS: INSULIN LISPRO 300 UNITS/3 ML VIAL. SQ SCH ×6 (00:04→09:02)
--- NOTE | 2020-12-12 01:30 | NUR ---
Patient started breathing 35-[address] Bolivar paged and orders received for Propofol.
[2020-12-12] MEDS: MEROPENEM 500 MG in IV NORMAL SALINE 50ML 50 ML IV SCH (05:28)
[2020-12-12 07:36] LABS: BASE EXCESS ABG 3 mmol/L (-3-3); HCO3 ABG 26 mmol/L (21-28); PCO2 ABG 35 mmHg (35-46); PO2 ABG 82 mmHg (65-108); SAT O2 ABG 96 % (92-99)
--- NOTE | 2020-12-12 07:37 | PDOC ---
Infectious Disease Note Subjective Subjective pt is intubated on vent ROS ROS Unresponsive no nausea vomiting diarrhea fever Vital Sign Vital Signs Vital Signs Date Time Temp Pulse Resp B/P (MAP) Pulse Ox O2 Delivery O2 Flow Rate FiO2 12/12/20 06:00 120 28 103/40 (61) 99 Ventilator 12/12/20 04:00 99.1 99.1 Physical Exam PHYSICAL EXAM GENERAL: orally intubated female, not in distress. VITAL SIGNS: stable HEENT: Both pupils are round and reacting. No conjunctival lesion. Mouth cannot be visualized, orally intubated. NECK: Supple, no JVP, no lymphadenopathy. LUNGS: Clear. HEART: S1, S2 regular. ABDOMEN: Soft, nontender, no organomegaly. EXTREMITIES: No edema, cyanosis. SKIN: Unremarkable. NEUROLOGIC: The patient is sedated, orally intubated. No focal deficit can be appreciated right now. Labs Lab Laboratory Tests Test 12/11/20 08:00 12/11/20 09:03 12/11/20 11:53 12/11/20 15:56 O2 Saturation 96 % (92-99) Arterial Blood pH 7.47 (7.35-7.45) Arterial Blood pCO2 at Patient Temp 33 mmHg (35-46) Arterial Blood pO2 at Patient Temp 80 mmHg (65-108) Arterial Blood HCO3 23 mmol/L (21-28) Arterial Blood Base Excess 0 mmol/L (-3-3) FiO2 35%+5 Glucose (Fingerstick) 243 mg/dL (70-99) 288 mg/dL (70-99) 312 mg/dL (70-99) Test 12/11/20 19:35 12/12/20 00:01 12/12/20 03:31 Glucose (Fingerstick) 260 mg/dL (70-99) 259 mg/dL (70-99) 212 mg/dL (70-99) Micro BC staph aureus MRSA Sputum Staph A MRSA Objective Assessment IMPRESSION: 1. Fever. 2. Leukocytosis. 3. Myocardial infarction, status post cardiac catheterization and angioplasty. 4. Respiratory failure. 5. Pulmonary edema versus pulmonary infection. 6. Diabetes. 7 Staph A bacteremia MRSA 12/07 Plan Plan of Care cont antibiotics cont supportive care zyvox Dapto and meropenem OSWALD DEL RIO MD Dec 12, 2020 07:37
[2020-12-12] MEDS: NOREPINEPHRINE VIAL 8 MG in IV DEXTROSE 5% 250 ML IV PRN (07:43)
[2020-12-12] MEDS ORDERED: ASPIRIN CHEWABLE 81 MG TABLET. PO SCH (08:00)
[2020-12-12 08:31] LABS: BASO % 0 % (0-3); EOS % 0 % (0-3); HEMATOCRIT 27.1 % (36.0-47.0); LYMPH % 8 % (24-48); MEAN CORPUSCULAR HEMOGLOBIN 30 pg (25-35); MEAN CORPUSCULAR HGB CONC 33 g/dL (31-37); MEAN CORPUSCULAR VOLUME 89 fL (79-100); MONO # 1.6 x10^3/uL (0.0-1.1); MONO % 13 % (0-9); NEUT # 9.6 x10^3/uL (1.8-7.7); NEUT % 79 % (31-73); PLATELET COUNT 413 x10^3/uL (140-400); RED BLOOD COUNT 3.04 x10^6/uL (3.50-5.40); RED CELL DISTRIBUTION WIDTH 15.5 % (11.5-14.5); WHITE BLOOD COUNT 12.2 x10^3/uL (4.0-11.0)
[2020-12-12 08:33] LABS: FIO2 ABG 35
--- NOTE | 2020-12-12 08:39 | PDOC ---
PROGRESS NOTES Date of Service DATE: 12/12/20 TIME: 08:33 Assessment Problems Medical Problems: (1) DKA (diabetic ketoacidoses) Status: Acute Large acute infarction, right MCA territory, with surrounding edema and associated mass effect without significant midline shift. Also 3 mm infarct in superior left parietal lobe. 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 Chronic left carotid occlusion, family was told about this 2 years ago Metabolic encephalopathy ST elevation myocardial infarction status-post coronary stents, hypertension, fever/sepsis, respiratory failure with possible pneumonia. Hyperlipidemia, diabetes, ischemic cardiomyopathy, congestive heart failure. Plan Discussed with daughter, poor prognosis Patient is DNR No role for vascular surgery Family to decide on withdrawing care, reasonable to wait a few more days, but they might not wait that long Discussed with Dr. Keenan Subjective None Objective Vital Signs Date Time Temp Pulse Resp B/P (MAP) Pulse Ox O2 Delivery O2 Flow Rate FiO2 12/12/20 06:00 120 28 103/40 (61) 99 Ventilator 12/12/20 04:00 99.1 99.1 Intake and Output 12/12/20 07:00 Intake Total 3099 ml Output Total 1295 ml Balance 1804 ml IV Total 535 ml Tube Feeding 2064 ml Other 500 ml Output Urine Total 1295 ml Gastric Drainage Total 0 ml PHYSICAL EXAM Sedated on ventilator, no response to noise or pain Pupils small, minimally reactive No spontaneous extraocular movements CN: no focal findings. Muscle tone: normal. Muscle strength: no pain response DTR: 0+ Plantar reflex: silent Gait: not examined Sensory exam: not cooperative. Cerebellar: not cooperative Review of Relevant I have reviewed the following items boyd (where applicable) has been applied. Labs Laboratory Tests Test 12/10/20 13:27 12/10/20 20:09 12/11/20 00:22 12/11/20 05:18 Glucose (Fingerstick) 179 mg/dL (70-99) 178 mg/dL (70-99) 251 mg/dL (70-99) 268 mg/dL (70-99) Test 12/11/20 05:20 12/11/20 08:00 12/11/20 09:03 12/11/20 11:53 Creatine Kinase 212 U/L (26-192) O2 Saturation 96 % (92-99) Arterial Blood pH 7.47 (7.35-7.45) Arterial Blood pCO2 at Patient Temp 33 mmHg (35-46) Arterial Blood pO2 at Patient Temp 80 mmHg (65-108) Arterial Blood HCO3 23 mmol/L (21-28) Arterial Blood Base Excess 0 mmol/L (-3-3) FiO2 35%+5 Glucose (Fingerstick) 243 mg/dL (70-99) 288 mg/dL (70-99) Test 12/11/20 15:56 12/11/20 19:35 12/12/20 00:01 12/12/20 03:31 Glucose (Fingerstick) 312 mg/dL (70-99) 260 mg/dL (70-99) 259 mg/dL (70-99) 212 mg/dL (70-99) Test 12/12/20 07:50 White Blood Count 12.2 x10^3/uL (4.0-11.0) Red Blood Count 3.04 x10^6/uL (3.50-5.40) Hemoglobin 9.0 g/dL (12.0-15.5) Hematocrit 27.1 % (36.0-47.0) Mean Corpuscular Volume 89 fL (79-100) Mean Corpuscular Hemoglobin 30 pg (25-35) Mean Corpuscular Hemoglobin Concent 33 g/dL (31-37) Red Cell Distribution Width 15.5 % (11.5-14.5) Platelet Count 413 x10^3/uL (140-400) Neutrophils (%) (Auto) 79 % (31-73) Lymphocytes (%) (Auto) 8 % (24-48) Monocytes (%) (Auto) 13 % (0-9) Eosinophils (%) (Auto) 0 % (0-3) Basophils (%) (Auto) 0 % (0-3) Neutrophils # (Auto) 9.6 x10^3/uL (1.8-7.7) Lymphocytes # (Auto) 1.0 x10^3/uL (1.0-4.8) Monocytes # (Auto) 1.6 x10^3/uL (0.0-1.1) Eosinophils # (Auto) 0.0 x10^3/uL (0.0-0.7) Basophils # (Auto) 0.0 x10^3/uL (0.0-0.2) Laboratory Tests Test 12/11/20 09:03 12/11/20 11:53 12/11/20 15:56 12/11/20 19:35 Glucose (Fingerstick) 243 mg/dL (70-99) 288 mg/dL (70-99) 312 mg/dL (70-99) 260 mg/dL (70-99) Test 12/12/20 00:01 12/12/20 03:31 12/12/20 07:50 Glucose (Fingerstick) 259 mg/dL (70-99) 212 mg/dL (70-99) White Blood Count 12.2 x10^3/uL (4.0-11.0) Red Blood Count 3.04 x10^6/uL (3.50-5.40) Hemoglobin 9.0 g/dL (12.0-15.5) Hematocrit 27.1 % (36.0-47.0) Mean Corpuscular Volume 89 fL (79-100) Mean Corpuscular Hemoglobin 30 pg (25-35) Mean Corpuscular Hemoglobin Concent 33 g/dL (31-37) Red Cell Distribution Width 15.5 % (11.5-14.5) Platelet Count 413 x10^3/uL (140-400) Neutrophils (%) (Auto) 79 % (31-73) Lymphocytes (%) (Auto) 8 % (24-48) Monocytes (%) (Auto) 13 % (0-9) Eosinophils (%) (Auto) 0 % (0-3) Basophils (%) (Auto) 0 % (0-3) Neutrophils # (Auto) 9.6 x10^3/uL (1.8-7.7) Lymphocytes # (Auto) 1.0 x10^3/uL (1.0-4.8) Monocytes # (Auto) 1.6 x10^3/uL (0.0-1.1) Eosinophils # (Auto) 0.0 x10^3/uL (0.0-0.7) Basophils # (Auto) 0.0 x10^3/uL (0.0-0.2) Microbiology 12/07/20 Gram Stain Evaluation - Final, Complete 12/07/20 Respiratory Culture - Final, Complete 12/07/20 Antimicrobic Susceptibility - Final, Complete 12/07/20 Blood Culture - Preliminary, Resulted NO GROWTH AFTER 4 DAYS Medications Current Medications Lidocaine HCl (Lidocaine 1% 20ml Vial) 20 ml STK-MED ONCE .ROUTE ; Start 12/05/20 at 18:24; Stop 12/05/20 at 18:24; Status DC Fentanyl Citrate (Fentanyl 2ml Vial) 100 mcg STK-MED ONCE .ROUTE ; Start 12/05/20 at 18:30; Stop 12/05/20 at 18:30; Status DC Midazolam HCl (Versed) 2 mg STK-MED ONCE .ROUTE ; Start 12/05/20 at 18:30; Stop 12/05/20 at 18:31; Status DC Heparin Sodium (Porcine) (Heparin Sodium) 10,000 unit STK-MED ONCE .ROUTE ; Start 12/05/20 at 18:39; Stop 12/05/20 at 18:40; Status DC Tirofiban/Sodium Chloride 100 ml @ As Directed STK-MED ONCE IV ; Start 12/05/20 at 18:39; Stop 12/05/20 at 18:40; Status DC Atropine Sulfate (ATROPINE 1mg SYRINGE) 1 mg STK-MED ONCE .ROUTE ; Start 12/05/20 at 18:42; Stop 12/05/20 at 18:43; Status DC Nitroglycerin (Nitroglycerin) 200 mcg STK-MED ONCE .ROUTE ; Start 12/05/20 at 18:55; Stop 12/05/20 at 18:55; Status DC Nitroglycerin (Nitroglycerin) 200 mcg 1X ONCE IART Last administered on 12/05/20at 19:29; Start 12/05/20 at 19:00; Stop 12/05/20 at 19:03; Status DC Heparin Sodium/ Sodium Chloride (HEPARIN for ARTERIAL LINE FLUSH) 1,000 unit 1X ONCE IART Last administered on 12/05/20at 19:28; Start 12/05/20 at 19:00; Stop 12/05/20 at 19:03; Status DC Heparin Sodium/ Sodium Chloride (HEPARIN for ARTERIAL LINE FLUSH) 1,000 unit 1X ONCE IART Last administered on 12/05/20at 19:28; Start 12/05/20 at 19:00; Stop 12/05/20 at 19:03; Status DC Midazolam HCl (Versed) 1 mg 1X ONCE IV Last administered on 12/05/20at 19:29; Start 12/05/20 at 19:00; Stop 12/05/20 at 19:03; Status DC Fentanyl Citrate (Fentanyl 2ml Vial) 25 mcg 1X ONCE IV Last administered on 12/05/20at 19:29; Start 12/05/20 at 19:00; Stop 12/05/20 at 19:03; Status DC Iodixanol (Visipaque 320) 100 ml 1X ONCE IART Last administered on 12/05/20at 19:28; Start 12/05/20 at 19:00; Stop 12/05/20 at 19:03; Status DC Heparin Sodium (Porcine) (Heparin Sodium) 4,000 unit 1X ONCE IV Last administered on 12/05/20at 19:30; Start 12/05/20 at 19:00; Stop 12/05/20 at 19:03; Status DC Lidocaine HCl (Lidocaine 1% 20ml Vial) 10 ml 1X ONCE INJ Last administered on 12/05/20at 19:29; Start 12/05/20 at 19:00; Stop 12/05/20 at 19:03; Status DC Info (CONTRAST GIVEN -- Rx MONITORING) 1 each PRN DAILY PRN MC SEE COMMENTS; Start 12/05/20 at 19:15; Stop 12/07/20 at 19:14; Status DC Tirofiban/Sodium Chloride 100 ml @ 0 mls/hr CONT PRN IV PER PROTOCOL Last administered on 12/05/20at 19:01; Start 12/05/20 at 19:05; Stop 12/09/20 at 12:51; Status DC Sodium Chloride (Normal Saline Flush) 3 ml QSHIFT PRN IV AFTER MEDS AND BLOOD DRAWS; Start 12/05/20 at 19:30 Aspirin (Ecotrin) 81 mg DAILYWBKFT PO ; Start 12/06/20 at 08:00; Status Cancel Clopidogrel Bisulfate (Plavix) 75 mg DAILYWBKFT PO Last administered on 12/11/20at 08:41; Start 12/06/20 at 08:00 Atorvastatin Calcium (Lipitor) 40 mg QHS PO Last administered on 12/11/20at 21:03; Start 12/05/20 at 21:00 Acetaminophen (Tylenol) 650 mg PRN Q6HRS PRN PO MILD PAIN / TEMP > 100.3'F Last administered on 12/06/20at 21:36; Start 12/05/20 at 19:30 Fentanyl Citrate (Fentanyl 2ml Vial) 50 mcg PRN Q1HR PRN IV MODERATE OR SEVERE PAIN; Start 12/05/20 at 19:30; Stop 12/08/20 at 01:17; Status DC Nitroglycerin (Nitrostat) 0.4 mg PRN Q5MIN PRN SL CHEST PAIN; Start 12/05/20 at 19:30 Amiodarone HCl 150 mg/Dextrose 103 ml @ 600 mls/hr 1X PRN PRN IV FOR VENTRICULAR TACHYCARDIA; Start 12/05/20 at 19:30 Lidocaine HCl (Lidocaine HCl 2% Abboject) 100 mg 1X PRN PRN IV FOR VENTRICULAR TACHYCARDIA; Start 12/05/20 at 19:30 Atropine Sulfate (ATROPINE 0.5mg SYRINGE) 0.5 mg PRN 1X PRN IV BRADYCARDIA; Start 12/05/20 at 19:30 Clopidogrel Bisulfate (Plavix) 600 mg 1X ONCE PO ; Start 12/05/20 at 19:30; Stop 12/05/20 at 19:39; Status DC Insulin Human Lispro (HumaLOG) 0-7 UNITS TIDWMEALS SQ Last administered on 12/07/20at 11:37; Start 12/06/20 at 08:00; Stop 12/07/20 at 12:32; Status DC Dextrose (Dextrose 50%-Water Syringe) 12.5 gm PRN Q15MIN PRN IV SEE COMMENTS; Start 12/05/20 at 21:00 Insulin Glargine (Lantus Syringe) 10 unit QHS SQ Last administered on 12/06/20at 22:43; Start 12/05/20 at 21:00; Stop 12/07/20 at 12:32; Status DC Potassium Chloride/Water 100 ml @ 100 mls/hr PRN Q1HR PRN IV SEE COMMENTS Last administered on 12/06/20at 11:07; Start 12/06/20 at 07:00 Potassium Chloride/Water 100 ml @ 100 mls/hr PRN Q1HR PRN IV SEE COMMENTS; Start 12/06/20 at 07:00 Potassium Chloride/Water 100 ml @ 100 mls/hr PRN Q1HR PRN IV SEE COMMENTS; Start 12/06/20 at 07:00 Insulin Human Regular 100 unit/ Sodium Chloride 101 ml @ 0 mls/hr CONT PRN IV SEE I/O RECORD Last administered on 12/06/20at 08:34; Start 12/06/20 at 07:00; Stop 12/07/20 at 17:22; Status DC Levofloxacin/ Dextrose 50 ml @ 50 mls/hr Q24H IV Last administered on 12/06/20at 11:06; Start 12/06/20 at 10:15; Stop 12/07/20 at 11:02; Status DC Acetaminophen (Tylenol Supp) 325 mg PRN Q6HRS PRN [place] MILD PAIN / TEMP > 100.3'F Last administered on 12/09/20at 20:33; Start 12/06/20 at 10:45 Sodium Bicarbonate 50 meq/Sodium Chloride 1,050 ml @ 100 mls/hr [id number] IV Last administered on 12/06/20at 11:42; Start 12/06/20 at 11:00; Stop 12/06/20 at 21:29; Status DC Aspirin (Jake Aspirin) 325 mg DAILY PO Last administered on 12/11/20at 08:41; Start 12/07/20 at 09:00; Stop 12/11/20 at 21:31; Status DC Atorvastatin Calcium (Lipitor) 40 mg DAILY PO ; Start 12/07/20 at 09:00; Status UNV Carvedilol (Coreg) 3.125 mg BIDWMEALS PO ; Start 12/06/20 at 17:00; Stop 12/06/20 at 17:05; Status DC Ciprofloxacin (Cipro) 250 mg BID PO ; Start 12/06/20 at 21:00; Status UNV Duloxetine HCl (Cymbalta) 30 mg DAILY PO Last administered on 12/10/20at 11:32; Start 12/06/20 at 13:00 Fludrocortisone Acetate (Florinef) 0.1 mg QAM PO Last administered on 12/09/20at 12:53; Start 12/06/20 at 13:00 Gabapentin (Neurontin) 100 mg HS PO Last administered on 12/11/20at 21:03; Start 12/06/20 at 21:00 Gabapentin (Neurontin) 300 mg PRN QHS PRN PO NEUROPATHIC PAIN; Start 12/06/20 at 12:15 Metoclopramide HCl (Reglan) 5 mg QAM PO ; Start 12/07/20 at 09:00; Stop 12/07/20 at 12:32; Status DC Metoclopramide HCl (Reglan) 10 mg PRN QID PRN PO NAUSEA/VOMITING; Start 12/06/20 at 12:15 Metoprolol Succinate (Toprol Xl) 12.5 mg DAILY PO ; Start 12/07/20 at 09:00; Stop 12/06/20 at 17:05; Status DC Metoprolol Tartrate (Lopressor) 25 mg QAM PO ; Start 12/07/20 at 09:00; Stop 12/06/20 at 17:05; Status DC Mirtazapine (Remeron) 15 mg DAILY PO Last administered on 12/11/20at 08:41; Start 12/07/20 at 09:00 Pantoprazole Sodium (Protonix) 40 mg DAILYAC PO ; Start 12/07/20 at 07:30; Stop 12/07/20 at 11:01; Status DC Non-Formulary Medication (Insulin Glargine,Hum.rec.anlog (Lantus Solostar)) 10 unit QHS SQ ; Start 12/06/20 at 21:00; Stop 12/07/20 at 11:58; Status DC Non-Formulary Medication (Insulin Glargine,Hum.rec.anlog (Lantus Solostar)) 18 unit QHS SQ ; Start 12/06/20 at 21:00; Stop 12/07/20 at 11:58; Status DC Midodrine (Proamatine) 10 mg [id number] PO Last administered on 12/09/20at 12:33; Start 12/06/20 at 13:00 Non-Formulary Medication (Ondansetron Hcl ) 8 mg BID PRN PO NAUSEA/VOMITING; Start 12/06/20 at 12:15; Stop 12/06/20 at 12:56; Status DC Potassium Chloride (Klor-Con) 10 meq DAILY PO ; Start 12/07/20 at 09:00; Stop 12/07/20 at 11:58; Status DC Non-Formulary Medication (Pravastatin Sodium (Pravachol)) 1 tab HS PO ; Start 12/06/20 at 21:00; Status UNV Prednisone (Prednisone) 5 mg DAILY PO Last administered on 12/11/20at 08:41; Start 12/07/20 at 09:00 Ondansetron HCl (Zofran) 4 mg PRN Q6HRS PRN IVP NAUSEA/VOMITING Last administered on 12/06/20at 13:53; Start 12/06/20 at 14:00 Clopidogrel Bisulfate (Plavix) 600 mg 1X ONCE PO Last administered on 12/06/20at 19:49; Start 12/06/20 at 18:00; Stop 12/06/20 at 18:40; Status DC Aspirin (Aspirin Chewable) 81 mg DAILYWBKFT PO Last administered on 12/07/20at 08:03; Start 12/06/20 at 19:00; Stop 12/07/20 at 11:02; Status DC Propofol 100 ml @ As Directed STK-MED ONCE IV ; Start 12/07/20 at 06:55; Stop 12/07/20 at 06:56; Status DC Fentanyl Citrate 30 ml @ 0 mls/hr CONT PRN IV SEE PROTOCOL Last administered on 12/09/20at 06:38; Start 12/07/20 at 07:00 Propofol 100 ml @ 0 mls/hr CONT PRN IV PER PROTOCOL Last administered on 12/12/20at 01:25; Start 12/07/20 at 07:00 Fentanyl Citrate (Fentanyl 2ml Vial) 25 mcg PRN Q1HR PRN IV SEE COMMENTS; Start 12/07/20 at 07:00 Fentanyl Citrate (Fentanyl 2ml Vial) 50 mcg PRN Q1HR PRN IV SEE COMMENTS; Start 12/07/20 at 07:00 Morphine Sulfate (Morphine Sulfate) 2 mg PRN Q1HR PRN IV SEE COMMENTS.; Start 12/07/20 at 07:00; Stop 12/08/20 at 01:18; Status DC Morphine Sulfate (Morphine Sulfate) 4 mg PRN Q1HR PRN IV SEE COMMENTS.; Start 12/07/20 at 07:00; Stop 12/08/20 at 01:18; Status DC Midazolam HCl 100 ml @ 0 mls/hr CONT PRN IV SEE PROTOCOL Last administered on 12/08/20at 04:57; Start 12/07/20 at 07:00 Norepinephrine Bitartrate 8 mg/ Dextrose 258 ml @ 5.137 mls/ hr CONT PRN IV PER PROTOCOL Last administered on 12/12/20at 07:43; Start 12/07/20 at 08:15 Pantoprazole Sodium (PROTONIX VIAL for IV PUSH) 40 mg DAILYAC IVP Last administered on 12/11/20at 08:40; Start 12/08/20 at 07:30 Meropenem 500 mg/ Sodium Chloride 50 ml @ 100 mls/hr Q8HRS IV Last administered on 12/12/20at 05:28; Start 12/07/20 at 14:00 Sodium Chloride 500 ml @ 500 mls/hr 1X ONCE IV Last administered on 12/07/20at 11:16; Start 12/07/20 at 11:15; Stop 12/07/20 at 12:14; Status DC Insulin Human Lispro (HumaLOG) 0-7 UNITS Q4HRS SQ Last administered on 12/12/20at 04:25; Start 12/07/20 at 16:00 Insulin Glargine (Lantus Syringe) 20 unit QHS SQ Last administered on 12/09/20at 00:39; Start 12/07/20 at 21:00; Stop 12/09/20 at 19:55; Status DC Potassium Chloride/Water 100 ml @ 100 mls/hr 1X ONCE IV Last administered on 12/07/20at 16:48; Start 12/07/20 at 17:00; Stop 12/07/20 at 17:59; Status DC Magnesium Sulfate 50 ml @ 25 mls/hr 1X ONCE IV Last administered on 12/07/20at 16:48; Start 12/07/20 at 17:00; Stop 12/07/20 at 18:59; Status DC Insulin Human Regular 100 unit/ Sodium Chloride 101 ml @ 5.363 mls/ hr CONT PRN IV SEE I/O RECORD; Start 12/07/20 at 17:30; Stop 12/07/20 at 17:43; Status DC Insulin Human Regular 100 unit/ Sodium Chloride 101 ml @ 0 mls/hr CONT PRN IV SEE I/O RECORD Last administered on 12/07/20at 17:49; Start 12/07/20 at 17:45; Stop 12/10/20 at 10:57; Status DC Daptomycin 290 mg/ Sodium Chloride 50 ml @ 100 mls/hr Q24H IV Last administered on 12/10/20at 10:00; Start 12/08/20 at 10:00; Stop 12/10/20 at 23:00; Status DC Albumin Human 500 ml @ 125 mls/hr 1X ONCE IV Last administered on 12/08/20at 10:05; Start 12/08/20 at 10:00; Stop 12/08/20 at 13:59; Status DC Linezolid/Dextrose 300 ml @ 300 mls/hr Q12HR IV Last administered on 12/11/20at 21:02; Start 12/09/20 at 09:00 Insulin Glargine (Lantus Syringe) 10 unit QHS SQ Last administered on 12/10/20at 20:42; Start 12/09/20 at 21:00; Stop 12/11/20 at 13:57; Status DC Potassium Chloride/Water 100 ml @ 100 mls/hr Q1H IV Last administered on 12/10/20at 17:32; Start 12/10/20 at 12:00; Stop 12/10/20 at 15:59; Status DC Daptomycin 320 mg/ Sodium Chloride 50 ml @ 100 mls/hr Q24H IV Last a dministered on 12/11/20at 12:03; Start 12/11/20 at 12:00 Furosemide (Lasix) 40 mg 1X ONCE IVP Last administered on 12/11/20at 10:02; Start 12/11/20 at 09:45; Stop 12/11/20 at 09:46; Status DC Insulin Glargine (Lantus Syringe) 15 unit QHS SQ Last administered on 12/11/20at 21:04; Start 12/11/20 at 21:00 Insulin Human Lispro (HumaLOG) 5 units Q4HRS SQ Last administered on 12/12/20at 04:25; Start 12/11/20 at 16:00 Aspirin (Aspirin Chewable) 81 mg DAILYWBKFT PO ; Start 12/12/20 at 08:00 Active Scripts Active Reported Reglan (Metoclopramide Hcl) 5 Mg Tablet 1 Tab PO QAM 1 hour prior to procedure Klor-Con 10 (Potassium Chloride) 10 Meq Tablet.er 1 Tab PO DAILY 30 Days Pantoprazole Sodium (Pantoprazole Sodium) 40 Mg Tablet.dr 40 Mg PO DAILYAC Ondansetron Hcl 4 Mg Tablet 8 Mg PO BID PRN Midodrine Hcl 10 Mg Tablet 10 Mg PO TID Mirtazapine 15 Mg Tablet 15 Mg PO DAILY Metoprolol Tartrate 25 Mg Tablet 1 Tab PO QAM Lantus Solostar (Insulin Glargine,Hum.rec.anlog) 100 Unit/1 Ml Insuln.pen 10 Unit SQ QHS Gabapentin (Gabapentin) 300 Mg Capsule 300 Mg PO PRN QHS PRN Fludrocortisone Acetate 0.1 Mg Tablet 0.1 Mg PO QAM Cymbalta (Duloxetine Hcl) 30 Mg Capsule.dr 1 Cap PO DAILY Atorvastatin Calcium 40 Mg Tablet 1 Tab PO DAILY Aspirin 325 Mg Tablet 1 Tab PO DAILY Cipro (Ciprofloxacin Hcl) 250 Mg Tablet 1 Tab PO BID 7 Days Carvedilol (Carvedilol) 3.125 Mg Tablet 1 Tab PO BID Gabapentin (Gabapentin) 100 Mg Capsule 100 Mg PO HS Reglan (Metoclopramide Hcl) 10 Mg Tablet 10 Mg PO QIDACHS PRN Pravachol (Pravastatin Sodium) 40 Mg Tablet 1 Tab PO HS Toprol Xl (Metoprolol Succinate) 25 Mg Tab.er.24h 0.5 Tab PO DAILY Lantus Solostar (Insulin Glargine,Hum.rec.anlog) 100 Unit/1 Ml Insuln.pen 18 Unit SQ QHS Vitals/I & O Vital Sign - Last 24 Hours 12/11/20 12/11/20 12/11/20 12/11/20 09:00 10:00 10:24 11:35 Pulse 119 124 Resp 17 26 B/P (MAP) 116/50 (72) 128/60 (82) 89/39 (56) Pulse Ox 99 97 99 O2 Delivery Ventilator Ventilator Ventilator 12/11/20 12/11/20 12/11/20 12/11/20 12:00 12:00 12:11 12:30 Temp 99.6 99.6 Pulse 108 Resp 22 B/P (MAP) 94/42 (59) 106/41 (62) Pulse Ox 99 99 O2 Delivery Ventilator Mechanical Ventilator Ventilator 12/11/20 12/11/20 12/11/20 12/11/20 13:00 13:27 14:00 14:01 Pulse 106 106 Resp 32 26 B/P (MAP) 99/38 (58) 103/40 (61) 116/49 (71) Pulse Ox 99 99 99 O2 Delivery Ventilator Ventilator Ventilator 12/11/20 12/11/20 12/11/20 12/11/20 15:00 16:00 16:00 17:00 Temp 99.6 99.6 Pulse 108 114 104 Resp 18 26 23 B/P (MAP) 110/55 (73) 140/54 (82) 120/57 (78) Pulse Ox 100 97 98 O2 Delivery Ventilator Mechanical Ventilator Ventilator Ventilator 12/11/20 12/11/20 12/11/20 12/11/20 17:54 18:00 19:00 20:00 Temp 100.2 100.2 Pulse 105 106 116 Resp 25 27 19 B/P (MAP) 119/59 (79) 110/48 (68) 129/49 (75) Pulse Ox 99 99 99 99 O2 Delivery Ventilator Ventilator Ventilator Ventilator 12/11/20 12/11/20 12/11/20 12/11/20 20:00 20:32 21:00 22:00 Pulse 121 129 Resp 26 B/P (MAP) 148/50 (82) 141/53 (82) Pulse Ox 99 100 100 O2 Delivery Mechanical Ventilator Ventilator Ventilator Ventilator 12/11/20 12/11/20 12/11/20 12/12/20 23:00 23:05 23:59 00:01 Temp 99.8 99.8 Pulse 117 118 Resp 26 23 B/P (MAP) 113/50 (71) 107/52 (70) Pulse Ox 100 99 99 O2 Delivery Ventilator Ventilator Mechanical Ventilator Ventilator 12/12/20 12/12/20 12/12/20 12/12/20 01:00 01:03 02:00 02:53 Pulse 125 118 Resp 35 29 B/P (MAP) 121/60 (80) 99/47 (64) Pulse Ox 99 99 99 99 O2 Delivery Ventilator Ventilator Ventilator Ventilator 12/12/20 12/12/20 12/12/20 12/12/20 03:00 04:00 04:00 05:00 Temp 99.1 99.1 Pulse 126 126 125 Resp 30 29 20 B/P (MAP) 130/57 (81) 138/57 (84) 121/49 (73) Pulse Ox 99 99 99 O2 Delivery Ventilator Mechanical Ventilator Ventilator Ventilator 12/12/20 12/12/20 05:45 06:00 Pulse 120 Resp 28 B/P (MAP) 103/40 (61) Pulse Ox 99 99 O2 Delivery Ventilator Ventilator Intake and Output 12/11/20 12/11/20 12/12/20 15:00 23:00 07:00 Intake Total 500 ml 1328 ml 1271 ml Output Total 410 ml 635 ml 250 ml Balance 90 ml 693 ml 1021 ml Images MRI of the brain without contrast 12/11/2020 Clinical History: Dysarthria.. Altered mental status. Technique: Unenhanced T1-weighted sagittal and axial, T2-weighted axial and coronal and FLAIR, gradient echo and diffusion-weighted axial images of the brain were obtained. Findings: Comparison is made to a CT scan of the head dated 12/05/2020. There is generalized parenchymal atrophy. Patchy, confluent and several small scattered areas of increased signal intensity are seen within the periventricular and subcortical white matter of both cerebral hemispheres on the FLAIR and T2-weighted images consistent with areas of small vessel ischemic di sease. Areas of encephalomalacia are again seen involving both occipital lobes, left greater than right. A large area restricted diffusion consistent with an area of acute infarction is seen involving portions of the right temporal, the right frontal and right parietal lobes. This measures 10.4 x 6.8 x 5.6 cm in AP, craniocaudal and transverse dimensions. There is surrounding edema and associated mass effect. Effacement of the right lateral ventricle is seen. No significant midline shift is noted. A small focal area of restricted diffusion is seen involving the superior left parietal lobe which measures 3 mm in size. This likely represents an area of acute ischemia/infarction. There is no surrounding edema or associated mass effect. Mild to moderate mucosal thickening is seen scattered throughout the paranasal sinuses. There are moderate sized bilateral mastoid effusions. The left internal carotid artery is noted be occluded. Diminished arterial flow void is seen involving the anterior and middle branches of the right middle cerebral artery. IMPRESSION: 1. Large area of acute infarction is seen involving portions of the right temp oral, right frontal and right parietal lobes. There is surrounding edema and associated mass effect without significant midline shift. 2. 3 mm focal area of restricted diffusion is seen involving the superior left parietal lobe consistent with an area of acute ischemia/infarction. There is no significant surrounding edema or associated mass effect. Carotid Doppler studies: Peak systolic velocities are as follows in cm/s: There are lines within the right neck therefore cannot evaluate the right neck vessels. Left Carotid System: Plaque and intimal thickening is identified at the left common carotid artery. 38 cm/S peak systolic velocity distally. Occlusion at the level of the carotid bulb with mixed plaque seen within the region. Vascular flow is seen within the left external carotid artery 92 cm/S. Left internal carotid artery is occluded. Left vertebral artery is partially seen with vascular flow seen within. Vascular flow seen in the partially visualized left subclavian artery 194 cm/S IMPRESSION: * Occlusion of the left internal carotid artery is identified. Report called to the floor at 2:28 PM on date of exam. * Could not evaluate the right carotid system secondary to lines in the region Justicifation of Admission Dx: Justifications for Admission: Justification of Admission Dx: N/A EMELIA KNIGHT MD Dec 12, 2020 08:39
[2020-12-12 08:44] LABS: ALBUMIN 1.5 g/dL (3.4-5.0); ALBUMIN/GLOBULIN RATIO 0.5 (1.0-1.7); CALCIUM 7.5 mg/dL (8.5-10.1); CREATININE 0.8 mg/dL (0.6-1.0); GFR 70.5; MAGNESIUM 1.8 mg/dL (1.8-2.4); POTASSIUM 3.3 mmol/L (3.5-5.1); TOTAL BILIRUBIN 0.3 mg/dL (0.2-1.0); TOTAL PROTEIN 4.7 g/dL (6.4-8.2)
[2020-12-12] MEDS: MIRTAZAPINE 15 MG TABLET PO SCH (09:00)
[2020-12-12] MEDS: CLOPIDOGREL BISULFATE 75 MG TABLET PO SCH (09:00)
[2020-12-12] MEDS: DULoxetine HCL 30 MG CAPSULE.DR PO SCH (09:00)
[2020-12-12] MEDS: predniSONE 5 MG TABLET PO SCH (09:00)
[2020-12-12] MEDS: PANTOPRAZOLE IV PUSH 40 MG VIAL. IVP SCH (09:00)
[2020-12-12] MEDS: FLUDROCORTISONE 0.1 MG TABLET PO SCH (09:02)
[2020-12-12] MEDS: MIDODRINE 5 MG TABLET PO SCH (09:02)
--- NOTE | 2020-12-12 10:07 | NUR ---
SS following up with discharge planning. SS reviewed pt chart and discussed with pt RN. Pt is currently on the vent at 35%. Tube feeds. Pt on Propofol. Pt on IV Daptomycin, IV Zyvox, and IV Meropenem. DNR. Not responsive. Physicians discussing goals of care with pt's family. Possible withdrawal of care soon. SS will continue to follow for discharge planning.
--- NOTE | 2020-12-12 10:28 | PDOC ---
[employer] PROGRESS NOTE Date of Service DOS: DATE: 12/12/20 TIME: 10:26 Chief Complaint Chief Complaint Acute myocardial infarction with status post cardiac cath and 2 stents placed to the RCA DKA Prior coronary disease with prior stents Diabetes History of cardiomyopathy Polypharmacy Hyperlipidemia CHF Hypertension Neuropathy GERD History of Present Illness History of Present Illness 12/12/2020 Patient seen and examined at bedside Remains intubated MRI performed yesterday showing acute infarct She was made DNR overnight; family discussing leaning towards possible comfort measures Will talk to family as needed Plan discussed with bedside RN 12/11/2020 Patient seen and examined at bedside Remains intubated Pulmonary cardiology infectious disease all consulted Family at bedside updated Chest x-ray today showed a left humerus fracture; unknown how long this has been present; was pointed out by team cardiology Orthopedics consulted Plan of care discussed with bedside nurse 12/10/2020 Patient seen and examined at bedside Rajat intubated at this point Overall no major clinical changes MRSA positive Son at bedside and discussed with him plan of care; he reported to me that patient had a similar episode approximately 5 years ago at [facility] where she was intubated for approximately a week and was able to be extubated and returned to normal life. Did inform him that the current situation with the STEMI it is unlikely that that would happen again however patient's family would like a time-limited trial for a few more days before beginning discussing withdrawal of care. Plan of care discussed with bedside nurse 12/09/2020 Patient seen and examined at bedside Remains intubated and sedated No major clinical changes overnight Concern for anoxic brain injury at this point We will begin goals of care discussion with family Plan of care discussed with bedside RN 12/08/2020 Patient seen and examined in the ICU Remains intubated and sedated Anion gap is improved insulin drip turned off Otherwise no major changes from previous day Continuing antibiotics Will wean ventilator as tolerated 12/07/2020 Patient seen and examined in the ICU She had to be intubated overnight Assist-control/24/350/50 percent with 5 of PEEP Anion gap slightly improved down to 21 I asked the nurse to resume the DKA protocol with the insulin drip She has mitts on for patient safety Sedated with fentanyl and Versed On IV Levophed as well She is critically ill Chart reviewed 12/06/2020 Patient seen and examined in the ICU She is obtunded Family is present (son and [id number]) Discussed the case at length with the family Chart reviewed Discussed with rn faculty explains that she is a frail diabetic She has slipped into DKA today Her pupils are still large but she apparently got atropine drops at the lactation coordinator yesterday Vitals/I&O Vitals/I&O: Vital Signs Date Time Temp Pulse Resp B/P (MAP) Pulse Ox O2 Delivery O2 Flow Rate FiO2 12/12/20 09:46 99 Ventilator 12/12/20 09:02 115 135/50 12/12/20 06:00 28 12/12/20 04:00 99.1 99.1 I & O 12/11/20 12/11/20 12/12/20 15:00 23:00 07:00 Intake Total 500 ml 1328 ml 1271 ml Output Total 410 ml 635 ml 275 ml Balance 90 ml 693 ml 996 ml Physical Exam Physical Exam: GENERAL: orally intubated female, not in distress. VITAL SIGNS: stable HEENT: Both pupils are round and reacting. No conjunctival lesion. Mouth cannot be visualized, orally intubated. NECK: Supple, no JVP, no lymphadenopathy. LUNGS: Clear. HEART: S1, S2 regular. ABDOMEN: Soft, nontender, no organomegaly. EXTREMITIES: No edema, cyanosis. SKIN: Unremarkable. NEUROLOGIC: The patient is sedated, orally intubated. No focal deficit can be appreciated right now. General: Other (Intubated, sedated) Heart: Regular rate, Normal S1, Normal S2 Lungs: Clear (CTABL) Abdomen: Normal bowel sounds, Soft Extremities: No clubbing, No edema Skin: No rashes Labs Labs: Laboratory Tests Test 12/11/20 11:53 12/11/20 15:56 12/11/20 19:35 12/12/20 00:01 Glucose (Fingerstick) 288 mg/dL (70-99) 312 mg/dL (70-99) 260 mg/dL (70-99) 259 mg/dL (70-99) Test 12/12/20 03:31 12/12/20 07:33 12/12/20 07:50 12/12/20 08:58 Glucose (Fingerstick) 212 mg/dL (70-99) 186 mg/dL (70-99) O2 Saturation 96 % (92-99) Arterial Blood pH 7.50 (7.35-7.45) Arterial Blood pCO2 at Patient Temp 35 mmHg (35-46) Arterial Blood pO2 at Patient Temp 82 mmHg (65-108) Arterial Blood HCO3 26 mmol/L (21-28) Arterial Blood Base Excess 3 mmol/L (-3-3) FiO2 35 White Blood Count 12.2 x10^3/uL (4.0-11.0) Red Blood Count 3.04 x10^6/uL (3.50-5.40) Hemoglobin 9.0 g/dL (12.0-15.5) Hematocrit 27.1 % (36.0-47.0) Mean Corpuscular Volume 89 fL (79-100) Mean Corpuscular Hemoglobin 30 pg (25-35) Mean Corpuscular Hemoglobin Concent 33 g/dL (31-37) Red Cell Distribution Width 15.5 % (11.5-14.5) Platelet Count 413 x10^3/uL (140-400) Neutrophils (%) (Auto) 79 % (31-73) Lymphocytes (%) (Auto) 8 % (24-48) Monocytes (%) (Auto) 13 % (0-9) Eosinophils (%) (Auto) 0 % (0-3) Basophils (%) (Auto) 0 % (0-3) Neutrophils # (Auto) 9.6 x10^3/uL (1.8-7.7) Lymphocytes # (Auto) 1.0 x10^3/uL (1.0-4.8) Monocytes # (Auto) 1.6 x10^3/uL (0.0-1.1) Eosinophils # (Auto) 0.0 x10^3/uL (0.0-0.7) Basophils # (Auto) 0.0 x10^3/uL (0.0-0.2) Sodium Level 139 mmol/L (136-145) Potassium Level 3.3 mmol/L (3.5-5.1) Chloride Level 103 mmol/L (98-107) Carbon Dioxide Level 29 mmol/L (21-32) Anion Gap 7 (6-14) Blood Urea Nitrogen 17 mg/dL (7-20) Creatinine 0.8 mg/dL (0.6-1.0) Estimated GFR (Cockcroft-Gault) 70.5 BUN/Creatinine Ratio 21 (6-20) Glucose Level 182 mg/dL (70-99) Calcium Level 7.5 mg/dL (8.5-10.1) Magnesium Level 1.8 mg/dL (1.8-2.4) Total Bilirubin 0.3 mg/dL (0.2-1.0) Aspartate Amino Transf (AST/SGOT) 47 U/L (15-37) Alanine Aminotransferase (ALT/SGPT) 26 U/L (14-59) Alkaline Phosphatase 147 U/L (46-116) Total Protein 4.7 g/dL (6.4-8.2) Albumin 1.5 g/dL (3.4-5.0) Albumin/Globulin Ratio 0.5 (1.0-1.7) Review of Systems Review of Systems: Cannot obtain Assessment and Plan Assessmemt and Plan Problems Medical Problems: (1) DKA (diabetic ketoacidoses) Status: Acute Assessmemt and Plan Acute myocardial infarction with status post cardiac cath and 2 stents placed to the RCA Respiratory failure requiring mechanical ventilation DKA Prior coronary disease with prior stents Diabetes History of cardiomyopathy Polypharmacy Hyperlipidemia CHF Hypertension Neuropathy GERD MRSA positive culture Plan ICU monitoring Trend labs DVT prophylaxis Full code Made DNR on night of December 11, patient's family appears to be leaning towards comfort measures at this point Appreciate cardiology intervention Family at bedside updated on plan of care Pulmonology neurology infectious disease and cardiology are consulted Comment Review of Relevant I have reviewed the following items boyd (where applicable) has been applied. Medications: Current Medications Medications (Trade) Dose Ordered Sig/Sandeep Route PRN Reason Start Time Stop Time Status Last Admin Dose Admin Daptomycin 320 mg/ Sodium Chloride 50 ml @ 100 mls/hr Q24H IV 12/11/20 12:00 12/11/20 12:03 Insulin Glargine (Lantus Syringe) 15 unit QHS SQ 12/11/20 21:00 12/11/20 21:04 Insulin Human Lispro (HumaLOG) 5 units Q4HRS SQ 12/11/20 16:00 12/12/20 09:02 Aspirin (Aspirin Chewable) 81 mg [id number] PO 12/12/20 08:00 12/12/20 09:00 Justifications for Admission Other Justification HENRY MONTANEZ MD Dec 12, 2020 10:28
--- NOTE | 2020-12-12 10:46 | PDOC ---
ANISHA MONIQUE [employer] PROFESS[employer] 12/12/20 1046: CARDIO Progress Notes Date and Time Date of Service 12/12/2020 Time of Evaluation 1020 Subjective Subjective: Other (not responsive ) Vitals Vitals Vital Signs Date Time Temp Pulse Resp B/P (MAP) Pulse Ox O2 Delivery O2 Flow Rate FiO2 12/12/20 09:46 99 Ventilator 12/12/20 09:02 115 135/50 12/12/20 06:00 28 12/12/20 04:00 99.1 99.1 Weight Weight [ ] Input and Output Intake and Output Intake and Output 12/12/20 07:00 Intake Total 3099 ml Output Total 1320 ml Balance 1779 ml IV Total 535 ml Tube Feeding 2064 ml Other 500 ml Output Urine Total 1320 ml Gastric Drainage Total 0 ml Laboratory Labs Laboratory Tests Test 12/11/20 11:53 12/11/20 15:56 12/11/20 19:35 12/12/20 00:01 Glucose (Fingerstick) 288 mg/dL (70-99) 312 mg/dL (70-99) 260 mg/dL (70-99) 259 mg/dL (70-99) Test 12/12/20 03:31 12/12/20 07:33 12/12/20 07:50 12/12/20 08:58 Glucose (Fingerstick) 212 mg/dL (70-99) 186 mg/dL (70-99) O2 Saturation 96 % (92-99) Arterial Blood pH 7.50 (7.35-7.45) Arterial Blood pCO2 at Patient Temp 35 mmHg (35-46) Arterial Blood pO2 at Patient Temp 82 mmHg (65-108) Arterial Blood HCO3 26 mmol/L (21-28) Arterial Blood Base Excess 3 mmol/L (-3-3) FiO2 35 White Blood Count 12.2 x10^3/uL (4.0-11.0) Red Blood Count 3.04 x10^6/uL (3.50-5.40) Hemoglobin 9.0 g/dL (12.0-15.5) Hematocrit 27.1 % (36.0-47.0) Mean Corpuscular Volume 89 fL (79-100) Mean Corpuscular Hemoglobin 30 pg (25-35) Mean Corpuscular Hemoglobin Concent 33 g/dL (31-37) Red Cell Distribution Width 15.5 % (11.5-14.5) Platelet Count 413 x10^3/uL (140-400) Neutrophils (%) (Auto) 79 % (31-73) Lymphocytes (%) (Auto) 8 % (24-48) Monocytes (%) (Auto) 13 % (0-9) Eosinophils (%) (Auto) 0 % (0-3) Basophils (%) (Auto) 0 % (0-3) Neutrophils # (Auto) 9.6 x10^3/uL (1.8-7.7) Lymphocytes # (Auto) 1.0 x10^3/uL (1.0-4.8) Monocytes # (Auto) 1.6 x10^3/uL (0.0-1.1) Eosinophils # (Auto) 0.0 x10^3/uL (0.0-0.7) Basophils # (Auto) 0.0 x10^3/uL (0.0-0.2) Sodium Level 139 mmol/L (136-145) Potassium Level 3.3 mmol/L (3.5-5.1) Chloride Level 103 mmol/L (98-107) Carbon Dioxide Level 29 mmol/L (21-32) Anion Gap 7 (6-14) Blood Urea Nitrogen 17 mg/dL (7-20) Creatinine 0.8 mg/dL (0.6-1.0) Estimated GFR (Cockcroft-Gault) 70.5 BUN/Creatinine Ratio 21 (6-20) Glucose Level 182 mg/dL (70-99) Calcium Level 7.5 mg/dL (8.5-10.1) Magnesium Level 1.8 mg/dL (1.8-2.4) Total Bilirubin 0.3 mg/dL (0.2-1.0) Aspartate Amino Transf (AST/SGOT) 47 U/L (15-37) Alanine Aminotransferase (ALT/SGPT) 26 U/L (14-59) Alkaline Phosphatase 147 U/L (46-116) Total Protein 4.7 g/dL (6.4-8.2) Albumin 1.5 g/dL (3.4-5.0) Albumin/Globulin Ratio 0.5 (1.0-1.7) Microbiology Micro Microbiology 12/11/20 Blood Culture - Preliminary, Resulted NO GROWTH AFTER 1 DAY 7/4/21 Gram Stain Evaluation - Final, Complete 12/07/20 Respiratory Culture - Final, Complete 12/07/20 Antimicrobic Susceptibility - Final, Complete Physical Exam HEENT: Neck Supple W Full Motion Chest: Symmetric LUNGS: Other (diminished, intubated with vent) Heart: RRR (SR with PVCs), other (distant heart tones ) Abdomen: Soft N/T Extremities: Other (trace bilateral LE edema; Left arm edema) Neurology: other (intubated, + gag and pupils reactive per staff) Assessment Assessment 1. Inferior STEMI: S/P PCI/SURYA to RCA with patent stents to LAD and LCx 2. HTN: controlled still needing levophed 3. Fever/sepsis: ID following 4. Acute respiratory failure with possible pneumonia 5. HLP 6. DM2 7. Encephalopathy: off sedation 8. Left displaced humeral fracture possibly from a fall: per PCP 9. ICM: EF at 35% 10. Acute on chronic diastolic/systolic CHF 11. Lasge Acute CVA right temporal, right frontal and right parietal lobes Recommendations 1. Continue DAPT. lasix therapy. Family deciding to possibly withdraw care. Very poor prognosis 2. Antibiotics per ID 3. Still needing levophed. Replace K and Mg 4. Supportive care Justicifation of Admission Dx: Justifications for Admission: Justification of Admission Dx: N/A SUNNY BRISENO MD 12/12/20 1628: ANISHA MONIQUE [employer] PROFESS[employer] Dec 12, 2020 10:46 SUNNY BRISENO MD Dec 12, 2020 16:28
[2020-12-12] MEDS ORDERED: POTASSIUM CHLORIDE 20MEQ 100 ML IV ONE (11:00)
--- NOTE | 2020-12-12 11:20 | PDOC ---
PULMONARY PROGRESS NOTES DATE: 12/12/20 TIME: 11:16 Subjective pt. remains on assist control mode Vitals Vital Signs Date Time Temp Pulse Resp B/P (MAP) Pulse Ox O2 Delivery O2 Flow Rate FiO2 12/12/20 10:00 112 31 118/43 (68) 100 Ventilator 12/12/20 08:00 97.8 97.8 Comments intubated Lungs: Clear (CTABL) Cardiovascular: S1, S2 Abdomen: Soft Extremities: No Edema Skin: Warm, Dry Labs Laboratory Tests Test 12/10/20 13:27 12/10/20 20:09 12/11/20 00:22 12/11/20 05:18 Glucose (Fingerstick) 179 mg/dL (70-99) 178 mg/dL (70-99) 251 mg/dL (70-99) 268 mg/dL (70-99) Test 12/11/20 05:20 12/11/20 08:00 12/11/20 09:03 12/11/20 11:53 Creatine Kinase 212 U/L (26-192) O2 Saturation 96 % (92-99) Arterial Blood pH 7.47 (7.35-7.45) Arterial Blood pCO2 at Patient Temp 33 mmHg (35-46) Arterial Blood pO2 at Patient Temp 80 mmHg (65-108) Arterial Blood HCO3 23 mmol/L (21-28) Arterial Blood Base Excess 0 mmol/L (-3-3) FiO2 35%+5 Glucose (Fingerstick) 243 mg/dL (70-99) 288 mg/dL (70-99) Test 12/11/20 15:56 12/11/20 19:35 12/12/20 00:01 12/12/20 03:31 Glucose (Fingerstick) 312 mg/dL (70-99) 260 mg/dL (70-99) 259 mg/dL (70-99) 212 mg/dL (70-99) Test 12/12/20 07:33 12/12/20 07:50 12/12/20 08:58 O2 Saturation 96 % (92-99) Arterial Blood pH 7.50 (7.35-7.45) Arterial Blood pCO2 at Patient Temp 35 mmHg (35-46) Arterial Blood pO2 at Patient Temp 82 mmHg (65-108) Arterial Blood HCO3 26 mmol/L (21-28) Arterial Blood Base Excess 3 mmol/L (-3-3) FiO2 35 White Blood Count 12.2 x10^3/uL (4.0-11.0) Red Blood Count 3.04 x10^6/uL (3.50-5.40) Hemoglobin 9.0 g/dL (12.0-15.5) Hematocrit 27.1 % (36.0-47.0) Mean Corpuscular Volume 89 fL (79-100) Mean Corpuscular Hemoglobin 30 pg (25-35) Mean Corpuscular Hemoglobin Concent 33 g/dL (31-37) Red Cell Distribution Width 15.5 % (11.5-14.5) Platelet Count 413 x10^3/uL (140-400) Neutrophils (%) (Auto) 79 % (31-73) Lymphocytes (%) (Auto) 8 % (24-48) Monocytes (%) (Auto) 13 % (0-9) Eosinophils (%) (Auto) 0 % (0-3) Basophils (%) (Auto) 0 % (0-3) Neutrophils # (Auto) 9.6 x10^3/uL (1.8-7.7) Lymphocytes # (Auto) 1.0 x10^3/uL (1.0-4.8) Monocytes # (Auto) 1.6 x10^3/uL (0.0-1.1) Eosinophils # (Auto) 0.0 x10^3/uL (0.0-0.7) Basophils # (Auto) 0.0 x10^3/uL (0.0-0.2) Sodium Level 139 mmol/L (136-145) Potassium Level 3.3 mmol/L (3.5-5.1) Chloride Level 103 mmol/L (98-107) Carbon Dioxide Level 29 mmol/L (21-32) Anion Gap 7 (6-14) Blood Urea Nitrogen 17 mg/dL (7-20) Creatinine 0.8 mg/dL (0.6-1.0) Estimated GFR (Cockcroft-Gault) 70.5 BUN/Creatinine Ratio 21 (6-20) Glucose Level 182 mg/dL (70-99) Calcium Level 7.5 mg/dL (8.5-10.1) Magnesium Level 1.8 mg/dL (1.8-2.4) Total Bilirubin 0.3 mg/dL (0.2-1.0) Aspartate Amino Transf (AST/SGOT) 47 U/L (15-37) Alanine Aminotransferase (ALT/SGPT) 26 U/L (14-59) Alkaline Phosphatase 147 U/L (46-116) Total Protein 4.7 g/dL (6.4-8.2) Albumin 1.5 g/dL (3.4-5.0) Albumin/Globulin Ratio 0.5 (1.0-1.7) Glucose (Fingerstick) 186 mg/dL (70-99) Laboratory Tests Test 12/11/20 11:53 12/11/20 15:56 12/11/20 19:35 12/12/20 00:01 Glucose (Fingerstick) 288 mg/dL (70-99) 312 mg/dL (70-99) 260 mg/dL (70-99) 259 mg/dL (70-99) Test 12/12/20 03:31 12/12/20 07:33 12/12/20 07:50 12/12/20 08:58 Glucose (Fingerstick) 212 mg/dL (70-99) 186 mg/dL (70-99) O2 Saturation 96 % (92-99) Arterial Blood pH 7.50 (7.35-7.45) Arterial Blood pCO2 at Patient Temp 35 mmHg (35-46) Arterial Blood pO2 at Patient Temp 82 mmHg (65-108) Arterial Blood HCO3 26 mmol/L (21-28) Arterial Blood Base Excess 3 mmol/L (-3-3) FiO2 35 White Blood Count 12.2 x10^3/uL (4.0-11.0) Red Blood Count 3.04 x10^6/uL (3.50-5.40) Hemoglobin 9.0 g/dL (12.0-15.5) Hematocrit 27.1 % (36.0-47.0) Mean Corpuscular Volume 89 fL (79-100) Mean Corpuscular Hemoglobin 30 pg (25-35) Mean Corpuscular Hemoglobin Concent 33 g/dL (31-37) Red Cell Distribution Width 15.5 % (11.5-14.5) Platelet Count 413 x10^3/uL (140-400) Neutrophils (%) (Auto) 79 % (31-73) Lymphocytes (%) (Auto) 8 % (24-48) Monocytes (%) (Auto) 13 % (0-9) Eosinophils (%) (Auto) 0 % (0-3) Basophils (%) (Auto) 0 % (0-3) Neutrophils # (Auto) 9.6 x10^3/uL (1.8-7.7) Lymphocytes # (Auto) 1.0 x10^3/uL (1.0-4.8) Monocytes # (Auto) 1.6 x10^3/uL (0.0-1.1) Eosinophils # (Auto) 0.0 x10^3/uL (0.0-0.7) Basophils # (Auto) 0.0 x10^3/uL (0.0-0.2) Sodium Level 139 mmol/L (136-145) Potassium Level 3.3 mmol/L (3.5-5.1) Chloride Level 103 mmol/L (98-107) Carbon Dioxide Level 29 mmol/L (21-32) Anion Gap 7 (6-14) Blood Urea Nitrogen 17 mg/dL (7-20) Creatinine 0.8 mg/dL (0.6-1.0) Estimated GFR (Cockcroft-Gault) 70.5 BUN/Creatinine Ratio 21 (6-20) Glucose Level 182 mg/dL (70-99) Calcium Level 7.5 mg/dL (8.5-10.1) Magnesium Level 1.8 mg/dL (1.8-2.4) Total Bilirubin 0.3 mg/dL (0.2-1.0) Aspartate Amino Transf (AST/SGOT) 47 U/L (15-37) Alanine Aminotransferase (ALT/SGPT) 26 U/L (14-59) Alkaline Phosphatase 147 U/L (46-116) Total Protein 4.7 g/dL (6.4-8.2) Albumin 1.5 g/dL (3.4-5.0) Albumin/Globulin Ratio 0.5 (1.0-1.7) Medications Active Scripts Medications Dose Route/Sig Max Daily Dose Days Date Category Dose Instructions Reglan (Metoclopramide Hcl) 5 Mg Tablet 1 Tab PO QAM 12/05/20 Reported 1 hour prior to procedure Klor-Con 10 (Potassium Chloride) 10 Meq Tablet.er 1 Tab PO DAILY 30 12/05/20 Reported Pantoprazole Sodium (Pantoprazole Sodium) 40 Mg Tablet.dr 40 Mg PO DAILYAC 12/05/20 Reported Ondansetron Hcl 4 Mg Tablet 8 Mg PO BID PRN 12/05/20 Reported Midodrine Hcl 10 Mg Tablet 10 Mg PO TID 12/05/20 Reported Mirtazapine 15 Mg Tablet 15 Mg PO DAILY 12/05/20 Reported Metoprolol Tartrate 25 Mg Tablet 1 Tab PO QAM 12/05/20 Reported Lantus Solostar (Insulin Glargine,Hum.rec.anlog) 100 Unit/1 Ml Insuln.pen 10 Unit SQ QHS 12/05/20 Reported Gabapentin (Gabapentin) 300 Mg Capsule 300 Mg PO PRN QHS PRN 12/05/20 Reported Fludrocortisone Acetate 0.1 Mg Tablet 0.1 Mg PO QAM 12/05/20 Reported Cymbalta (Duloxetine Hcl) 30 Mg Capsule.dr 1 Cap PO DAILY 12/05/20 Reported Atorvastatin Calcium 40 Mg Tablet 1 Tab PO DAILY 12/05/20 Reported Aspirin 325 Mg Tablet 1 Tab PO DAILY 12/05/20 Reported Cipro (Ciprofloxacin Hcl) 250 Mg Tablet 1 Tab PO BID 7 12/05/20 Reported Carvedilol (Carvedilol) 3.125 Mg Tablet 1 Tab PO BID 08/25/17 Reported Gabapentin (Gabapentin) 100 Mg Capsule 100 Mg PO HS 08/25/17 Reported Reglan (Metoclopramide Hcl) 10 Mg Tablet 10 Mg PO QIDACHS PRN 08/25/17 Reported Pravachol (Pravastatin Sodium) 40 Mg Tablet 1 Tab PO HS 08/25/17 Reported Toprol Xl (Metoprolol Succinate) 25 Mg Tab.er.24h 0.5 Tab PO DAILY 08/25/17 Reported Lantus Solostar (Insulin Glargine,Hum.rec.anlog) 100 Unit/1 Ml Insuln.pen 18 Unit SQ QHS 12/02/16 Reported Comments Chest x-ray reviewed dated 12/11/2020 Significant improvement in the right upper lobe lung infiltrates. Unchanged nonhealing left humeral fracture Impression . IMPRESSION: 1. Acute hypoxemic respiratory failure, multifactorial in etiology including aspiration pneumonia, acute systolic congestive heart failure, DKA,? cerebrovascular accident. 2. Abnormal chest x-ray, suspect secondary to aspiration pneumonia and acute systolic congestive heart failure. Improving infiltrates in the right lung. 3. Diabetic ketoacidosis--resolved 4. Encephalopathy , likely post sedation induced. 5. Acute inferior ST elevation myocardial infarction, status post percutaneous coronary intervention and stent placement. 6. Acute kidney injury--resolved 8. Hypotension, 9. Diabetes mellitus. 10. Nonhealing left humeral fracture. This is known to the family and patient had declined to undergo any operative intervention in the past. 11. Cardiomyopathy with an ejection fraction of 35%. Plan . update 12/12 Family wants to proceed with withdrawl of care unlikely to survive will follow palliative protocol Updated 12/11/20 Continue current vent support A/C mode 24/350/5/35% Mild clinical improvement. She continues to trigger the ventilator. She has a positive gag reflex. off sedation to assess neurological function , likely sedation induced encephalopathy, slow to improve. May take few more days to wake up. Follow CXR/ABG --reduced Fi02 to 35% Continue vasopressor to keep MAP above 65, Albumin PRN Follow Cardiology recs-- S/P PCI to RCA-- EF 45% Follow ID recs-- for ABX/ Fever, follow cultures-- MRSA on Resp. Culture now on zyvox , significant improvement in infiltrates from the right side. DM I per PCP Tube feeding for nutritional support DVT/GI PPX D/W RN and RT d/w son in detail. We will continue to monitor for neurological improvement. We will hold off any further imaging studies of the brain until the end of the week. Updated 12/10/20 Continue current vent support A/C mode 24/350/5/45% reduce rate today off sedation to assess neurological function , likely sedation induced encephalopathy Follow CXR/ABG --reduce Fi02 to 35% Continue vasopressor to keep MAP above 65, Albumin PRN Follow Cardiology recs-- S/P PCI to RCA-- EF 45% Follow ID recs-- for ABX/ Fever, follow cultures-- MRSA on Resp. Culture now on zyvox DM I per PCP Tube feeding for nutritional support DVT/GI PPX D/W RN and RT d/w son in detail Updated 12/09/20 Continue current vent support A/C mode 24/350/5/45% DC sedation to assess neurological function Follow CXR/ABG --reduce Fi02 to 35% Continue vasopressor to keep MAP above 65, Albumin PRN Follow Cardiology recs-- S/P PCI to RCA-- EF 45% Follow ID recs-- for ABX/ Fever, follow cultures-- MRSA on Resp. Culture now on zyvox DM I per PCP Tube feeding for nutritional support DVT/GI PPX D/W RN and RT Updated 12/08/20 Continue current vent support A/C mode 45% and PEEP of 7 proceed with reducing sedation to assess neurological function and ability to proceed with PS trial Follow CXR/ABG Continue vasopressor to keep MAP above 65, Albumin PRN Follow Cardiology recs-- S/P PCI to RCA-- EF 45% Follow ID recs-- for ABX/ Fever, follow cultures Staph. A on Resp. Culture DM I per PCP DVT/GI PPX D/W RN and RT PLAN AND RECOMMENDATIONS:12/07/20 1. Titrate FIO2 to keep O2 saturation 94%. 2. Continue ventilator support. ABG was reviewed. I increased her rate to 24. She has severe metabolic acidosis. Hopefully, will improve with treatment of DKA. 3. I do recommend nephrology consultation. 4. Cardiology is on the case. 5. ID is consulted. Change antibiotic from Zosyn to meropenem. 6. Sputum for Gram stain and culture, blood culture and urine culture. Follow up results. 7. Continue pressors to keep mean arterial pressure 65. 8. Echocardiogram per cardiology. 9. The findings and recommendations were discussed with RN and RT and ID. SALEEM WILDER MD Dec 12, 2020 11:20
[2020-12-12] MEDS ORDERED: MAGNESIUM SULFATE 2GM 50 ML IV ONE (11:30)
[2020-12-12] MEDS ORDERED: GLYCOPYRROLATE 1 MG/5 ML VIAL. IV ONE (12:30)
[2020-12-12] MEDS ORDERED: MORPHINE SULFATE 10 MG/ML VIAL. IV ONE (12:30)
--- NOTE | 2020-12-12 13:00 | NUR ---
Patient extubated to room air for comfort care at 1300
[2020-12-12] MEDS: MORPHINE SULFATE 4 MG/ML INJ. IV PRN ×3 (15:04→18:26)
--- NOTE | 2020-12-12 15:45 | RAD ---
Exam performed: One view chest. Indication: Reason: Patient on vent / Spl. Instructions: / History: Date of Service: 12/12/2020 9:35 AM Comparison: One view chest from December 2020 and 50 a.m.. Single AP upright portable view chest findings: Endotracheal tube, feeding tube and a right IJ line in similar position as previously. Prominent inte rstitial markings are seen in both lungs. Is opacities are present in both lung bases. There is a old fracture left proximal humerus. The bony structures are normal. Impression: Hazy bibasilar opacities, increased since prior likely infiltrates Electronically signed by: Ángela Adamson MD (12/12/2020 3:43 PM) [facility]
--- NOTE | 2020-12-12 18:53 | NUR ---
Patient went asystole at 1853. This nurse and Aida Reich verified that there wasn't any heartbeat. Patients dentures released to Spouse Hermann. MTN called with [facility], patient isn't a candidate for eye or tissue.
[2020-12-13] MEDS ORDERED: FUROSEMIDE 40 MG/4 ML VIAL. IVP SCH (09:00)
== END 2020-12-12 23:48 | DRG 853 ==
LOC: 1 WEST ICU 18:16
PROVIDERS: ADMIT Internal Medicine; ATTEND Internal Medicine
PROC: 027035Z Dilation of Coronary Artery, One Artery with Two Drug-eluting Intraluminal Devices, Percutaneous Approach (ICD-10-PCS; 2020-12-05)
PROC: 3E033PZ Introduction of Platelet Inhibitor into Peripheral Vein, Percutaneous Approach (ICD-10-PCS; 2020-12-05)
PROC: 4A023N7 Measurement of Cardiac Sampling and Pressure, Left Heart, Percutaneous Approach (ICD-10-PCS; 2020-12-05)
PROC: B215YZZ Fluoroscopy of Left Heart using Other Contrast (ICD-10-PCS; 2020-12-05)
PROC: B211YZZ Fluoroscopy of Multiple Coronary Arteries using Other Contrast (ICD-10-PCS; 2020-12-05)
PROC: 5A09357 Assistance with Respiratory Ventilation, Less than 24 Consecutive Hours, Continuous Positive Airway Pressure (ICD-10-PCS; 2020-12-05)
PROC: 0BH17EZ Insertion of Endotracheal Airway into Trachea, Via Natural or Artificial Opening (ICD-10-PCS; 2020-12-05)
PROC: 5A1955Z Respiratory Ventilation, Greater than 96 Consecutive Hours (ICD-10-PCS; principal; 2020-12-07)
PROC: 02HV33Z Insertion of Infusion Device into Superior Vena Cava, Percutaneous Approach (ICD-10-PCS; 2020-12-07)
DX: A41.02 Sepsis due to Methicillin resistant Staphylococcus aureus (principal); I21.19 ST elevation (STEMI) myocardial infarction involving other coronary artery of inferior wall; G93.41 Metabolic encephalopathy; E10.10 Type 1 diabetes mellitus with ketoacidosis without coma; I50.43 Acute on chronic combined systolic (congestive) and diastolic (congestive) heart failure; J69.0 Pneumonitis due to inhalation of food and vomit; J96.01 Acute respiratory failure with hypoxia; I63.511 Cerebral infarction due to unspecified occlusion or stenosis of right middle cerebral artery; N17.9 Acute kidney failure, unspecified; E10.43 Type 1 diabetes mellitus with diabetic autonomic (poly)neuropathy; E78.5 Hyperlipidemia, unspecified; E87.6 Hypokalemia; I11.0 Hypertensive heart disease with heart failure; I25.10 Atherosclerotic heart disease of native coronary artery without angina pectoris; I25.2 Old myocardial infarction; I25.5 Ischemic cardiomyopathy; I34.0 Nonrheumatic mitral (valve) insufficiency; I65.22 Occlusion and stenosis of left carotid artery; K21.9 Gastro-esophageal reflux disease without esophagitis; R56.9 Unspecified convulsions; Z66 Do not resuscitate; Z79.4 Long term (current) use of insulin; Z82.0 Family history of epilepsy and other diseases of the nervous system; Z82.3 Family history of stroke; Z86.73 Personal history of transient ischemic attack (TIA), and cerebral infarction without residual deficits; Z87.440 Personal history of urinary (tract) infections; Z87.442 Personal history of urinary calculi; Z90.49 Acquired absence of other specified parts of digestive tract; Z95.5 Presence of coronary angioplasty implant and graft
CPT/HCPCS: 92921; 92941; 93458; G0269; 36415; 36600; 70551; 71045; 74018; 80048; 80053; 80061; 80076; 80307; 81001; 82550; 82607; 82805; 82962; 83735; 84075; 84100; 84443; 84484; 85007; 85025; 85347; 87015; 87040; 87070; 87077; 87186; 87205; 93306; 93880; 94002; 94003; 94660; 99152; 99153; C1725; C1874; C1892; C9113; J0878; J1644; J1815; J1940; J1956; J2020; J2060; J2185; J2250; J2270; J2405; J2704; J3010; J3475; J3480; J3490; J7030; J7040; J7060; J7512; P9045; Q9967; G0378; J3246